=== PATIENT | female | born 1940 | race Caucasian/White ===

== ENCOUNTER 2017-10-15 19:05 | Inpatient (IN) | payer MEDICARE, OTHER ==
[~2017-10-15] VITALS: Ht 157.5 cm; Wt 53.3 kg
[~2017-10-15 19:05] MED LIST: ACET325 PO; ASPI81TA82 PO; ATOR10 PO; BAZACRE TOP; BISA10R PR; CEFU1TAB43 PO; COUG100S2 PO; DEPA500T3 PO; DILA125S PO; ERYT.5%O LEFT EYE; IMOD2TAB PO; LEVO.025 PO; LORTA5 PO; MILKSUS5 PO; NITR0.4S SL; PERI8.6T PO; PROM25SU8 PR; TIZA2CAP PO; XANA0.5T PO; ZOFR4TAB PO; ZOLO50TA PO; [UNRECOGNIZED DRUG - CODE] PO
[2017-10-15] MEDS ORDERED: IOHEXOL 350 MG/ML 10 ML VIAL (for RAD DIAG) IVCONTRAST ONE (19:06)
[2017-10-15 19:32] VITALS: BP 120/59; PULSE 95; RESP 20; TEMP 96.9; O2SAT 98
--- NOTE | 2017-10-15 20:25 | PD ---
HPI Chief Complaint: Abdominal Pain Time Seen by Provider: 20:11 Travel History International Travel<30 days: No Contact w/Intl Traveler<30days: No Traveled to known affect area: No History of Present Illness HPI Patient comes emergency department for evaluation from [facility] report abdominal pain with reported for burgundy vomiting. Patient denies any pain currently. States that she vomited 3 times. Denies any blood noted in the vomit. Denies any chest pain, shortness of breath, abdominal pain, back pain, or fevers. Patient states that she is hungry, but was told she cannot eat secondary to vomiting. Patient was also reported not have a bowel movement for 4 days. Patient states she is uncertain last time she had a bowel movement. Denies anything making symptoms better or worse. Severity mild. PFSH Past Medical History Anemia: Yes Arthritis: Yes (OA) Blood Disorders: No Anxiety: Yes Depression: Yes Cancer: Yes (LYMPHOMA) Cardiovascular Problems: Yes Chemotherapy: Yes (LAST TX 10/22) Cerebrovascular Accident: Yes Diabetes: No Diminished Hearing: No Endocrine: No Gastrointestinal Disorders: Yes GERD: Yes Glaucoma: No Gout: Yes Genitourinary: Yes (UTI'S, NEUROGENIC BLADDER) Headaches: Yes Hepatitis: No Hiatal Hernia: No Hypertension: Yes Immune Disorder: No Implanted Vascular Access Dvce: Yes Musculoskeletal: Yes (RIGHT SIDED WEAKNESS DUE TO CVA, OSTEOPOROSIS) Neurologic: Yes (cord compression c3) Psychiatric: Yes Reproductive: No Respiratory: No Migraines: No Radiation Therapy: No Seizures: Yes Ulcer: No PNEUMOCCOCAL Vaccine (Year): 1 ?: Not Menopausal: Yes Tubal Ligation: Yes Past Surgical History Abdominal Surgery: No AICD: No Appendectomy: No Arteriovenous Shunt: Yes (HEAD) Body Medical Devices: RT SIDE BEVEL GEAR GENERATOR OPERATOR SHUNT AND METAL BRAIN CLIP Cardiac Surgery: No Cholecystectomy: No Ear Surgery: No Endocrine Surgery: No Eye Surgery: No Genitourinary Surgery: No Gynecologic Surgery: Yes (HYSTERECTOMY) Hysterectomy: Yes Insulin Pump: No Joint Replacement: No Neurologic Surgery: Yes (BENIGN BRAIN TUMOR;BEVEL GEAR GENERATOR OPERATOR SHUNT;CLIPS) Oral Surgery: Yes (TONSILECTOMY) Pacemaker: No Thoracic Surgery: No Tonsillectomy: Yes Other Surgery: Yes (1981 brain...1982 BEVEL GEAR GENERATOR OPERATOR SHUNT. 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 ESBL (urine) - 10/2013 & 01/2016 chocolate flavor (Unverified Adverse Reaction, Unknown, "MAKES ME HYPER", 10/15/17) Reported Meds & Prescriptions Reported Meds & Active Scripts Active Reported Aspirin Low Dose (Aspirin) 81 Mg Chew 81 Mg CHEW DAILY Atorvastatin (Atorvastatin Calcium) 10 Mg Tab 10 Mg PO HS Sertraline (Sertraline HCl) 100 Mg Tab 100 Mg PO DAILY Depakote DR (Divalproex Sodium) 500 Mg Tabdr 500 Mg PO BID Phenytoin Liq (Phenytoin) 125 Mg/5 Ml Rylee 4 Ml PO TID Tizanidine (Tizanidine HCl) 2 Mg Tab 2 Mg PO TID Ondansetron (Ondansetron HCl) 8 Mg Tab 4 Mg PO Q6HR Levothyroxine (Levothyroxine Sodium) 25 Mcg Tab 1 Mcg PO DAILY Hydrocodone-Acetamin 5-325 mg (Hydrocodone/Acetaminophen) 5 Mg-325 Mg Tablet 1 Tab PO Q4HR PRN Review of Systems Except as stated in HPI: all other systems reviewed are Neg Physical Exam Narrative GENERAL: Well-developed, under nourished, in no acute distress, and non-ill appearing. SKIN: Focused skin assessment warm and dry. HEAD: Atraumatic. Normocephalic. EYES: Pupils equal and round. EOMI. No scleral icterus. No injection or drainage. ENT: No nasal bleeding or discharge. Mucous membranes pink and dry lips. NECK: Trachea midline. Supple. No nuclear rigidity. CARDIOVASCULAR: Regular rate and rhythm. Murmur appreciated. RESPIRATORY: No accessory muscle use. No respiratory distress. Decreased breath sounds throughout. Breath sounds equal bilaterally. GASTROINTESTINAL: Abdomen soft, nondistended, and no guarding. Hepatic and splenic margins not palpable. Hypoactive bowel sounds x4. No pulsatile mass. Patient reports tenderness palpation left lower and left upper quadrants. MUSCULOSKELETAL: No obvious deformities. No clubbing. No cyanosis. No edema. NEUROLOGICAL: Awake and alert. No obvious cranial nerve deficits. Normal speech. Data Data Last Documented VS Vital Signs Date Time Temp Pulse Resp B/P (MAP) Pulse Ox O2 Delivery O2 Flow Rate FiO2 10/15/17 23:30 88 16 112/57 (75) 97 Nasal Cannula 2.00 10/15/17 19:32 96.9 Orders Orders Complete Blood Count With Diff (10/15/17 20:17) Comprehensive Metabolic Panel (10/15/17 20:17) Lipase (10/15/17 20:17) Prothrombin Time / Inr (Pt) (10/15/17 20:17) Act Partial Throm Time (Ptt) (10/15/17 20:17) Urinalysis - C+S If Indicated (10/15/17 20:17) Ct Abd/Pel W Iv Contrast(Rout) (10/15/17 20:17) Iv Access Insert/Monitor (10/15/17 20:17) Ecg Monitoring (10/15/17 20:17) Oximetry (10/15/17 20:17) Sodium Chloride 0.9% Flush (Ns Flush) (10/15/17 20:30) Chest, Single Ap (10/15/17 20:17) Urine Culture (10/15/17 20:30) Levofloxacin 750 Mg Premix Inj (Levaquin (10/15/17 23:15) Iohexol 350 Inj (Omnipaque 350 Inj) (10/15/17 19:06) Admit Order (Ed Use Only) (10/16/17 01:10) Labs Laboratory Tests Test 10/15/17 20:30 White Blood Count 14.9 TH/MM3 Red Blood Count 4.18 MIL/MM3 Hemoglobin 13.1 GM/DL Hematocrit 38.8 % Mean Corpuscular Volume 92.9 FL Mean Corpuscular Hemoglobin 31.5 PG Mean Corpuscular Hemoglobin Concent 33.9 % Red Cell Distribution Width 13.3 % Platelet Count 229 TH/MM3 Mean Platelet Volume 8.8 FL Neutrophils (%) (Auto) 84.4 % Lymphocytes (%) (Auto) 7.9 % Monocytes (%) (Auto) 7.6 % Eosinophils (%) (Auto) 0.0 % Basophils (%) (Auto) 0.1 % Neutrophils # (Auto) 12.6 TH/MM3 Lymphocytes # (Auto) 1.2 TH/MM3 Monocytes # (Auto) 1.1 TH/MM3 Eosinophils # (Auto) 0.0 TH/MM3 Basophils # (Auto) 0.0 TH/MM3 CBC Comment DIFF FINAL Differential Comment Prothrombin Time 11.6 SEC Prothromb Time International Ratio 1.1 RATIO Activated Partial Thromboplast Time 31.2 SEC Urine Color YELLOW Urine Turbidity HAZY Urine pH 8.0 Urine Specific [place] 1.021 Urine Protein 30 mg/dL Urine Glucose (UA) NEG mg/dL Urine Ketones NEG mg/dL Urine Occult Blood NEG Urine Nitrite NEG Urine Bilirubin NEG Urine Urobilinogen 2.0 MG/DL Urine Leukocyte Esterase LARGE Urine RBC 2 /hpf Urine WBC 18 /hpf Urine Squamous Epithelial Cells 1 /hpf Urine Amorphous Sediment RARE Urine Bacteria MANY /hpf Urine Mucus FEW /lpf Microscopic Urinalysis Comment CULTURE INDICATED Blood Urea Nitrogen 12 MG/DL Creatinine 0.36 MG/DL Random Glucose 107 MG/DL Total Protein 6.8 GM/DL Albumin 2.5 GM/DL Calcium Level 8.3 MG/DL Alkaline Phosphatase 86 U/L Aspartate Amino Transf (AST/SGOT) 24 U/L Alanine Aminotransferase (ALT/SGPT) 15 U/L Total Bilirubin 0.5 MG/DL Sodium Level 130 MEQ/L Potassium Level 4.5 MEQ/L Chloride Level 95 MEQ/L Carbon Dioxide Level 26.6 MEQ/L Anion Gap 8 MEQ/L Estimat Glomerular Filtration Rate 175 ML/MIN Lipase 86 U/L [facility] Medical Decision Making Medical Screen Exam Complete: Yes Emergency Medical Condition: Yes Differential Diagnosis Gastritis, diverticulitis, constipation, small bowel obstruction, ileus, colitis , UTI, pneumonia, metabolic disturbance Narrative Course Patient was seen and examined. Initial laboratory radiological studies were ordered. Upon review of patient's UA and chest x-ray, IV Levaquin was ordered to cover both aspiration pneumonia and UTI. Patient was signed out to Dr. Tarango at the end of my shift pending CT results. Please see her documentation for final diagnosis and disposition. Gen Holley Oct 15, 2017 20:25
[2017-10-15] MEDS ORDERED: SODIUM CHLORIDE 0.9% FLUSH 10 ML FLUSH IV FLUSH PRN (20:30)
[2017-10-15 20:45] VITALS: BP 116/57; PULSE 68; RESP 16; O2SAT 96
--- NOTE | 2017-10-15 20:47 | RADRPT ---
EXAM DATE/TIME: 10/15/2017 20:24 [facility] COMPARISON: CHEST SINGLE AP, January 27, 2016, 13:01. INDICATIONS : Vomiting MEDICAL HISTORY : Seizures. Hypertension. Stroke. SURGICAL HISTORY : Shunt ENCOUNTER: Initial ACUITY: 1 day PAIN SCORE: 0/10 LOCATION: chest FINDINGS: His basal airspace disease which could represent bronchopneumonia or aspiration. Severe dextroscolios is. Remote bilateral rib fractures. Cardiomegaly CONCLUSION: 1. Basilar airspace disease. Differential diagnosis includes bronchopneumonia and aspiration. Probabl e trace pleural fluid. Cardiomegaly. Severe dextroscoliosis. Alvino Simmons MD on October 15, 2017 at 20:44 Board Certified Radiologist. This report was verified electronically.
[2017-10-15] MEDS ORDERED: ONDA8TAB7 PO (20:49)
[2017-10-15] MEDS ORDERED: LEVO25TA4 PO (20:49)
[2017-10-15] MEDS ORDERED: HYDR-3516 PO (20:49)
[2017-10-15] MEDS ORDERED: SERT-129 PO (20:49)
[2017-10-15] MEDS ORDERED: PHEN125S PO (20:49)
[2017-10-15] MEDS ORDERED: ASPI81CH6 CHEW (20:49)
[2017-10-15] MEDS ORDERED: DEPA500T PO (20:49)
[2017-10-15] MEDS ORDERED: TIZA2TAB PO (20:49)
[2017-10-15] MEDS ORDERED: ATOR10TA15 PO (20:49)
[2017-10-15 21:38] LABS: AUTOMATED NEUTROPHIL # 12.6 TH/MM3 (1.8-7.7); BASOPHIL % 0.1 % (0.0-2.0); HEMATOCRIT 38.8 % (35.0-46.0); HEMOGLOBIN 13.1 GM/DL (11.6-15.3); LYMPH % 7.9 % (9.0-44.0); LYMPHOCYTE # 1.2 TH/MM3 (1.0-4.8); MEAN CELL VOLUME 92.9 FL (80.0-100.0); MEAN CORPUSCULAR HEMOGLOBIN 31.5 PG (27.0-34.0); MEAN CORPUSCULAR HGB CONC 33.9 % (32.0-36.0); MEAN PLATELET VOLUME 8.8 FL (7.0-11.0); MONO % 7.6 % (0.0-8.0); MONOCYTE # 1.1 TH/MM3 (0-0.9); NEUT % 84.4 % (16.0-70.0); PLATELET COUNT 229 TH/MM3 (150-450); RED BLOOD COUNT 4.18 MIL/MM3 (4.00-5.30); RED CELL DISTRIBUTION WIDTH 13.3 % (11.6-17.2); WHITE BLOOD COUNT 14.9 TH/MM3 (4.0-11.0)
[2017-10-15 21:49] VITALS: BP 135/59; PULSE 95; RESP 18; O2SAT 96
[2017-10-15 21:53] LABS: AMORPHOUS SEDIMENT, URINE RARE; BACTERIA, URINE MANY /hpf; BILIRUBIN, URINE NEG (NEG); BLOOD, URINE NEG (NEG); GLUCOSE,URINE NEG (NEG); KETONE, URINE NEG (NEG); MUCUS URINE FEW /lpf (OCC); NITRITE,URINE NEG (NEG); SQUAMOUS EPITHELIAL CELL URINE 1 /hpf (0-5); URINE COLOR YELLOW (YELLW/STRAW); URINE LEUKOCYTE ESTERASE LARGE (NEG)
[2017-10-15 21:57] LABS: INTERNATIONAL NORMALIZED RATIO 1.1 RATIO; PROTHROMBIN TIME - PATIENT 11.6 SEC (9.8-11.6)
[2017-10-15 22:07] LABS: ALT (GPT) 15 U/L (10-53)
[2017-10-15 22:09] LABS: ALKALINE PHOSPHATASE 86 U/L (45-117); TOTAL BILIRUBIN ADULT 0.5 MG/DL (0.2-1.0); TOTAL PROTEIN 6.8 GM/DL (6.4-8.2)
[2017-10-15 22:26] LABS: ALBUMIN 2.5 GM/DL (3.4-5.0); AST (GOT) 24 U/L (15-37); BICARBONATE 26.6 MEQ/L (21.0-32.0); BLOOD UREA NITROGEN 12 MG/DL (7-18); CALCIUM 8.3 MG/DL (8.5-10.1); CHLORIDE 95 MEQ/L (98-107); CREATININE 0.36 MG/DL (0.50-1.00); GLOMERULAR FILTRATION RATE 175 ML/MIN (>89); GLUCOSE,RANDOM 107 MG/DL (74-106); SODIUM (NA) 130 MEQ/L (136-145)
[2017-10-15] MEDS ORDERED: LEVOFLOXACIN 750 MG PREMIX INJ 150 ML IV ONE (23:15)
--- NOTE | 2017-10-15 23:18 | PD ---
Data Data Last Documented VS Vital Signs Date Time Temp Pulse Resp B/P (MAP) Pulse Ox O2 Delivery O2 Flow Rate FiO2 10/15/17 23:30 88 16 112/57 (75) 97 Nasal Cannula 2.00 10/15/17 19:32 96.9 Orders Orders Complete Blood Count With Diff (10/15/17 20:17) Comprehensive Metabolic Panel (10/15/17 20:17) Lipase (10/15/17 20:17) Prothrombin Time / Inr (Pt) (10/15/17 20:17) Act Partial Throm Time (Ptt) (10/15/17 20:17) Urinalysis - C+S If Indicated (10/15/17 20:17) Ct Abd/Pel W Iv Contrast(Rout) (10/15/17 20:17) Iv Access Insert/Monitor (10/15/17 20:17) Ecg Monitoring (10/15/17 20:17) Oximetry (10/15/17 20:17) Sodium Chloride 0.9% Flush (Ns Flush) (10/15/17 20:30) Chest, Single Ap (10/15/17 20:17) Urine Culture (10/15/17 20:30) Levofloxacin 750 Mg Premix Inj (Levaquin (10/15/17 23:15) Iohexol 350 Inj (Omnipaque 350 Inj) (10/15/17 19:06) Admit Order (Ed Use Only) (10/16/17 01:10) Labs Laboratory Tests Test 10/15/17 20:30 White Blood Count 14.9 TH/MM3 Red Blood Count 4.18 MIL/MM3 Hemoglobin 13.1 GM/DL Hematocrit 38.8 % Mean Corpuscular Volume 92.9 FL Mean Corpuscular Hemoglobin 31.5 PG Mean Corpuscular Hemoglobin Concent 33.9 % Red Cell Distribution Width 13.3 % Platelet Count 229 TH/MM3 Mean Platelet Volume 8.8 FL Neutrophils (%) (Auto) 84.4 % Lymphocytes (%) (Auto) 7.9 % Monocytes (%) (Auto) 7.6 % Eosinophils (%) (Auto) 0.0 % Basophils (%) (Auto) 0.1 % Neutrophils # (Auto) 12.6 TH/MM3 Lymphocytes # (Auto) 1.2 TH/MM3 Monocytes # (Auto) 1.1 TH/MM3 Eosinophils # (Auto) 0.0 TH/MM3 Basophils # (Auto) 0.0 TH/MM3 CBC Comment DIFF FINAL Differential Comment Prothrombin Time 11.6 SEC Prothromb Time International Ratio 1.1 RATIO Activated Partial Thromboplast Time 31.2 SEC Urine Color YELLOW Urine Turbidity HAZY Urine pH 8.0 Urine Specific [place] 1.021 Urine Protein 30 mg/dL Urine Glucose (UA) NEG mg/dL Urine Ketones NEG mg/dL Urine Occult Blood NEG Urine Nitrite NEG Urine Bilirubin NEG Urine Urobilinogen 2.0 MG/DL Urine Leukocyte Esterase LARGE Urine RBC 2 /hpf Urine WBC 18 /hpf Urine Squamous Epithelial Cells 1 /hpf Urine Amorphous Sediment RARE Urine Bacteria MANY /hpf Urine Mucus FEW /lpf Microscopic Urinalysis Comment CULTURE INDICATED Blood Urea Nitrogen 12 MG/DL Creatinine 0.36 MG/DL Random Glucose 107 MG/DL Total Protein 6.8 GM/DL Albumin 2.5 GM/DL Calcium Level 8.3 MG/DL Alkaline Phosphatase 86 U/L Aspartate Amino Transf (AST/SGOT) 24 U/L Alanine Aminotransferase (ALT/SGPT) 15 U/L Total Bilirubin 0.5 MG/DL Sodium Level 130 MEQ/L Potassium Level 4.5 MEQ/L Chloride Level 95 MEQ/L Carbon Dioxide Level 26.6 MEQ/L Anion Gap 8 MEQ/L Estimat Glomerular Filtration Rate 175 ML/MIN Lipase 86 U/L [facility] Medical Record Reviewed: Yes Supervised Visit with KETAN: Yes Interpretation(s) Last Impressions Chest X-Ray 10/15/172016 Signed Impressions: Service Date/Time: Sunday, October 15, 2017 20:24 - CONCLUSION: 1. Basilar airspace disease. Differential diagnosis includes bronchopneumonia and aspiration. Probable trace pleural fluid. Cardiomegaly. Severe dextroscoliosis. Alvino Simmons MD Abdomen/Pelvis CT 10/15/172016 Signed Impressions: Service Date/Time: Sunday, October 15, 2017 23:09 - CONCLUSION: Right lung base consolidation and effusion with nonspecific nodular areas in the central right lung base. Gallstones and gallbladder wall calcification. Otherwise grossly nonacute appearance of the abdomen and pelvis. Sonu Nix MD Narrative Course During the course of the patient's emergency department visit, the patient's history, examination, and differential diagnosis were reviewed with the patient. The patient was placed on a residential monitor with oximetry and frequent blood pressure monitoring. The patient had IV access obtained and blood work sent for analysis. The patient's case was staffed with Elmer, the physician phlebotomist medical lab assistant. The patient's case was then checked out to me at the conclusion of his shift. Please see his complete history and physical. The patient is a 77- year-old male who presents from an assisted living facility with nausea and vomiting 3 today. The patient denies having any abdominal pain, however according the record at the snf the patient was complaining of abdominal pain in addition to this. The patient reports having constipation for the last 4 days. The patient's laboratory studies were reviewed and remarkable for a white count of 14.9, hemoglobin 13.1, platelets 229 with 84.4 neutrophils, CMP is remarkable for sodium of 130, chloride 95, creatinine 0.36, glucose 107, albumin 2.5, lipase 86. PT 11.6, PTT 31.2, urinalysis showed large leukocyte esterase 18 WBCs many bacteria. Radiology studies were reviewed and remarkable for a chest x-ray that shows basilar airspace disease suspicious for bronchopneumonia, possible aspiration, CT scan of the abdomen pelvis shows a right lung base consolidation and effusion with nonspecific nodular areas in the central right lung base, gallstones and a gallbladder wall calcification, otherwise grossly nonacute appearance of the abdomen and pelvis. Given the patient's evidence of urinary tract infection and pneumonia the patient was started on Levaquin 750 mg IV 1. The patient's results were discussed with the patient, including the plan of care. I explained that further testing and/ or monitoring is indicated based on the patient's history, examination, and/ or laboratory findings. Therefore, I recommended admission for additional evaluation. The patient expressed understanding and was agreeable with this plan. The patient was admitted to the hospital in stable condition and sent to a bed under the care of Dr. Piña. Sepsis Criteria SIRS Criteria (2 or more): Heart rate over 90, WBC > 87260, < 4000 or > 10% bands Physician Communication Physician Communication The patient's case including history, pertinent physical examination findings, and laboratory studies were discussed with Dr. Piña. It was agreed that the patient would be admitted to Dr. Piña service. Diagnosis Primary Impression: Pneumonia Qualified Codes: J18.1 - Lobar pneumonia, unspecified organism Additional Impression: Pyuria Admitting Information Admitting Physician Requests: Admit Maddison Tarango MD Oct 15, 2017 23:18
[2017-10-15 23:30] VITALS: BP 112/57; PULSE 88; RESP 16; O2SAT 97
[2017-10-16] VITALS (10 sets, daily range): BP systolic 118–145; BP diastolic 58–65; PULSE 18–86; RESP 16–18; TEMP 97.5–98.5; O2SAT 95–99
[2017-10-16] MEDS ORDERED: MAGNESIUM HYDROXIDE SUSP 30 ML CUP PO SCH (01:20)
[2017-10-16] MEDS ORDERED: ONDANSETRON HCL 4 MG/2 ML VIAL ONE (01:23)
--- NOTE | 2017-10-16 01:25 | RADRPT ---
EXAM DATE/TIME: 10/15/2017 23:09 [facility] COMPARISON: CT ABDOMEN & PELVIS W CONTRAST, June 24, 2014, 13:23. INDICATIONS : Patient complains of abdominal pain. IV CONTRAST: 70 cc Omnipaque 350 (iohexol) IV ORAL CONTRAST: No oral contrast ingested. RADIATION DOSE: 6.75 CTDIvol (mGy) MEDICAL HISTORY : Cerebrovascular disease. Cardiovascular disease Seizures.lymphoma SURGICAL HISTORY : [facility] MEDICAL AND LAB DIRECTOR shunt ENCOUNTER: Initial ACUITY: 3 days PAIN SCALE: 5/10 LOCATION: abdomen TECHNIQUE: Volumetric scanning of the abdomen and pelvis was performed. Using automated exposure control and ad justment of the mA and/or kV according to patient size, radiation dose was kept as low as reasonably achievable to obtain optimal diagnostic quality images. DICOM format image data is available electro nically for review and comparison. FINDINGS: LOWER LUNGS: There is consolidative change and pleural effusion in the right lung base and minimal similar change in the posterior left base. There are couple of nodular densities in the central right lung base whic h aren't determine. These measure 1.3-1.5 cm. There is mild dilatation of the aortic root LIVER: Stable fluid density areas in the posterior segment right lobe and in the central liver. No biliary d uctal dilatation. Gallbladder is filled with stones and there is some wall calcification noted. SPLEEN: Normal size without lesion. PANCREAS: Within normal limits. KIDNEYS: Normal in size and shape. There is no mass, stone or hydronephrosis. ADRENAL GLANDS: Stable left adrenal mass. VASCULAR: Dense atherosclerotic vascular calcification involving the aorta and branch vessels. Inferior vena ca jung filter is present. BOWEL/MESENTERY: Abundant stool in the rectum. Slight fluid and gaseous distention of bowel loops elsewhere. ABDOMINAL WALL: Within normal limits. RETROPERITONEUM: There is no lymphadenopathy. BLADDER: Decompressed with Leary catheter REPRODUCTIVE: Uterus is surgically absent. No evidence of pelvic mass or free fluid INGUINAL: There is no lymphadenopathy or hernia. MUSCULOSKELETAL: Prominent spinal scoliosis and degenerative change in the spine and hips. Previous pinning of the rig ht hip. CONCLUSION: Right lung base consolidation and effusion with nonspecific nodular areas in the central right lung b ase. Gallstones and gallbladder wall calcification. Otherwise grossly nonacute appearance of the abdomen and pelvis. Sonu Nix MD on October 16, 2017 at 1:15 Board Certified Radiologist. This report was verified electronically.
[2017-10-16] MEDS ORDERED: LORazepam 2 MG/ML VIAL IV PRN (01:45)
[2017-10-16] MEDS ORDERED: ONDANSETRON HCL 4 MG/2 ML VIAL IV PUSH PRN (01:45)
[2017-10-16] MEDS: SODIUM CHLOR 0.9% 1000 ML INJ 1,000 ML IV SCH ×2 (01:48→15:05)
[2017-10-16] MEDS ORDERED: SODIUM CHLORIDE 0.9% FLUSH 10 ML FLUSH IV FLUSH PRN (08:30)
[2017-10-16] MEDS ORDERED: NALOXONE HCL 0.4 MG/ML AMP IV PUSH PRN (08:30)
[2017-10-16] MEDS ORDERED: METOCLOPRAMIDE HCL 10 MG/2 ML VIAL IV PUSH PRN (08:30)
[2017-10-16] MEDS ORDERED: MAGNESIUM HYDROXIDE SUSP 30 ML CUP PO PRN (08:30)
[2017-10-16] MEDS ORDERED: LACTULOSE SYRUP 20 GM/30 ML CUP PO PRN (08:30)
[2017-10-16] MEDS ORDERED: ACETAMINOPHEN 325 MG TAB PO PRN (08:30)
[2017-10-16] MEDS ORDERED: BISACODYL 10 MG SUPP RECTAL PRN (08:30)
[2017-10-16] MEDS ORDERED: SENNOSIDES 8.6 MG TAB PO PRN (08:30)
[2017-10-16] MEDS ORDERED: cloNIDine HCL 0.1 MG TAB PO PRN (08:45)
[2017-10-16] MEDS ORDERED: Vancomycin Consult Pharmacy 1 EA OTHER SCH (08:45)
[2017-10-16] MEDS: LEVOTHYROXINE SODIUM 25 MCG TAB PO SCH (09:05)
[2017-10-16] MEDS: SODIUM CHLORIDE 0.9% FLUSH 10 ML FLUSH IV FLUSH SCH ×2 (09:06→21:00)
--- NOTE | 2017-10-16 09:39 | MH ---
cc: Aquilino Piña MD DATE OF ADMISSION: 10/16/2017 CHIEF COMPLAINT: Abdominal pain and hematemesis. HISTORY OF PRESENT ILLNESS: She resides at [facility]. Apparently, she has not had a bowel movement for at least 4 days at the [facility]. She was sent to the emergency room and found to have sepsis, pneumonia and UTI. She was started on IV fluids. WBCs are 14.9. sodium 130 and positive leukocyte esterase and many bacteria on urinalysis. Chest x-ray shows pneumonia and possible aspiration. CT scan of the abdomen and pelvis showed right lung base consolidation and effusion, gallstones and a gallbladder wall calcification, otherwise normal CT of the abdomen and pelvis. She was given Levaquin 750 IV x 1. The patient met sepsis criteria as her heart rate was over 90; WBCs greater than 12,000. The patient, per the nursing report, has been quite lethargic. She has not eaten or had bowel movements. She required a dose of Zofran. The patient was seen in the emergency room and appears much more weakened than usual. She does respond to stimuli and is able to give somewhat of a history and overall her mentation is almost at baseline. I know the patient well as she is an outpatient at the [facility]. PAST MEDICAL HISTORY: 1. Seizures. 2. Anemia. 3. Lymphoma. 4. Anxiety and depression. 5. History of chemotherapy for lymphoma. 6. Cerebrovascular accident. 7. Gastroesophageal reflux disease. 8. Gout. 9. Neurogenic bladder. 10. Chronic UTIs with chronic indwelling Leary. 11. Headaches. 12. Hypertension. 13. Right hemiparesis. 14. Osteoporosis. 15. Cord compression at C3. PAST SURGICAL HISTORY: 1. AV shunt in the head on the right side and a metal brain clip. 2. Hysterectomy. 3. Tonsillectomy. SOCIAL HISTORY: No alcohol, tobacco or illicit drug usage. She is a long-term care resident at [facility]. ALLERGIES: MILK, MRI AND CHOCOLATE. HOME MEDICATIONS: 1. Aspirin 81. 2. Atorvastatin 10. 3. Sertraline [address] 500 mg b.i.d. 5. Phenytoin liquid 125/5, 4 mL t.i.d. 6. Tizanidine 2 mg t.i.d. 7. Zofran 4 mg p.r.n. 8. Levothyroxine 25 mcg daily. 9. [place] 5 mg every 4 hours p.r.n. REVIEW OF SYSTEMS: Increased weakness, altered mental status, vomiting and hematemesis, although that is questionable. Negative 12-point review of systems otherwise, except as noted in the history and physical and assessment and plan. DIAGNOSTIC STUDIES: WBC is 14.9, otherwise normal CBC. Sodium 130, creatinine 0.36, glucose 107, calcium 8.3. INR 1.1. Urinalysis is hazy with protein, large leukocyte esterase, WBCs and many bacteria. Chest x-ray shows bronchopneumonia and aspiration and pleural fluid with cardiomegaly and dextroscoliosis. AP CT scan of the right lung, pneumonia and effusion and gallstones and gallbladder wall calcification. Urine culture is pending. Blood cultures are pending. PHYSICAL EXAMINATION: VITAL SIGNS: Temperature 98.5, pulse 80, respirations 18, blood pressure 125/60, pulse oximetry is 99 on 2 liters. GENERAL: She is a frail, emaciated, female lying on her left side with her typical dextroscoliosis abnormality. HEENT: Oropharynx is dry, but overall clear. Normocephalic, atraumatic. PERRLA. NECK: No JVD. No bruits. CHEST: She has rhonchi at the bases bilaterally and right base crackles and a severe harsh congested cough. No wheezes. ABDOMEN: Soft, tender to palpation over a lower abdominal hernia, overall stable on examination. Normoactive bowel sounds. No rebound or guarding. EXTREMITIES: No edema. SKIN: Clear. NEUROLOGIC: Alert and oriented x 1. No apparent distress. Cranial nerves are grossly intact; however, she has right hemiparesis. She has 1/5 weakness in the left upper extremity and left lower extremity, otherwise. PSYCHIATRIC: Stable generalized confusion, alert and oriented x 1. ASSESSMENT: Sepsis. Pneumonia. Aspiration. Hematemesis, questionable. Vomiting. Hyponatremia. Seizures. Cerebrovascular accident with right hemiparesis. Hyperglycemia. Lymphoma. Urinary tract infection. Neurogenic bladder with chronic indwelling Leary. Ventriculoperitoneal shunt. Severe dextroscoliosis. PLAN: 1. IV vancomycin. 2. IV Zosyn. 3. Consult Infectious Disease for sepsis. 4. GI consult for hematemesis and abdominal pain. 5. Morning CBC and BMP. 6. Blood cultures. 7. Followup blood cultures. 8. Followup urine culture. 9. IV normal saline at 75 mL per hour. 10. Continue Depakote. 11. Continue Synthroid. 12. Protonix 40 IV b.i.d. for gastrointestinal prophylaxis. 13. Deep venous thrombosis prophylaxis with SCDs and TEDs and no chemical prophylaxis as she may have had some hematemesis. 14. Telemetry. 15. Physical therapy. 16. Occupational therapy. 17. Speech therapy. 18. Inpatient admission for the above assessment and plan. [facility] treatment as outlined above. Expect 3 days of inpatient stay. 19. 50 minutes spent with the patient, half of which was counseling and coordination of care. MD MAXWELL Nuñez/MARQUITA , 08:48 AM , 09:37 AM
[2017-10-16] MEDS: PHENYTOIN SUSP 100 MG/4 ML CUP PO SCH ×3 (10:16→17:27)
[2017-10-16] MEDS: PANTOPRAZOLE SODIUM 40 MG VIAL IV PUSH SCH (10:16)
[2017-10-16] MEDS: DOCUSATE SODIUM 50 MG/SENNA 8.6 MG TAB PO SCH ×2 (10:17→22:08)
[2017-10-16] MEDS: PIPERACIL-TAZO 3.375 GM PREMIX 50 ML IV SCH ×3 (10:19→22:08)
--- NOTE | 2017-10-16 10:21 | PD.CONS ---
HPI History of Present Illness This is a 77 year old lady who presented from [facility] and was found to have sepsis, PNA, UTI. GI consulted for GIB. Reportedly she was having n/v for 3 days and possibly hematemesis. There was report from [facility] that she had maroon emesis and was complaining of abd pain. Pt admits n/v but denies any blood or maroon color. Says her last BM was 2 d ago. per EMR was [address] shows abundant stool in rectum and some gaseous distention. She c/o abd pain "in the pit of my stomach." She is not sure if she has had EGD or colonoscopy. 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 (blood) - 05/2008 ESBL (urine) - 10/2013 & 01/2016 chocolate flavor (Unverified Adverse Reaction, Unknown, "MAKES ME HYPER", 10/15/17) Family History unk Social History no toxic habits (Fernanda Olsen) Review of Systems Gastrointestinal: COMPLAINS OF: Abdominal pain, Nausea, Vomiting, DENIES: Hematemesis otherwise noncontributory (Fernanda Olsen) GI Exam Vitals I&O Vital Signs Date Time Temp Pulse Resp B/P (MAP) Pulse Ox O2 Delivery O2 Flow Rate FiO2 10/16/17 05:13 98.5 80 18 125/60 (81) 99 Nasal Cannula 2.00 10/16/17 01:49 86 16 119/58 (78) 97 Nasal Cannula 2.00 10/15/17 23:30 88 16 112/57 (75) 97 Nasal Cannula 2.00 10/15/17 21:49 95 18 135/59 (84) 96 Room Air 10/15/17 20:45 68 16 116/57 (76) 96 Nasal Cannula 2.00 10/15/17 19:32 96.9 95 20 120/59 (79) 98 I/O 10/15/17 10/15/17 10/15/17 10/16/17 10/16/17 10/16/17 07:00 15:00 23:00 07:00 15:00 23:00 Intake Total 150 ml Output Total 600 ml Balance -450 ml IV Total 150 ml Output Urine Total 600 ml # Voids 0 Imaging Last Impressions Chest X-Ray 10/15/172016 Signed Impressions: Service Date/Time: Sunday, October 15, 2017 20:24 - CONCLUSION: 1. Basilar airspace disease. Differential diagnosis includes bronchopneumonia and aspiration. Probable trace pleural fluid. Cardiomegaly. Severe dextroscoliosis. Alvino Simmons MD Abdomen/Pelvis CT 10/15/172016 Signed Impressions: Service Date/Time: Sunday, October 15, 2017 23:09 - CONCLUSION: Right lung base consolidation and effusion with nonspecific nodular areas in the central right lung base. Gallstones and gallbladder wall calcification. Otherwise grossly nonacute appearance of the abdomen and pelvis. Sonu Nix MD Laboratory Test 10/15/17 20:30 White Blood Count 14.9 TH/MM3 Red Blood Count 4.18 MIL/MM3 Hemoglobin 13.1 GM/DL Hematocrit 38.8 % Mean Corpuscular Volume 92.9 FL Mean Corpuscular Hemoglobin 31.5 PG Mean Corpuscular Hemoglobin Concent 33.9 % Red Cell Distribution Width 13.3 % Platelet Count 229 TH/MM3 Mean Platelet Volume 8.8 FL Neutrophils (%) (Auto) 84.4 % Lymphocytes (%) (Auto) 7.9 % Monocytes (%) (Auto) 7.6 % Eosinophils (%) (Auto) 0.0 % Basophils (%) (Auto) 0.1 % Neutrophils # (Auto) 12.6 TH/MM3 Lymphocytes # (Auto) 1.2 TH/MM3 Monocytes # (Auto) 1.1 TH/MM3 Eosinophils # (Auto) 0.0 TH/MM3 Basophils # (Auto) 0.0 TH/MM3 CBC Comment DIFF FINAL Differential Comment Prothrombin Time 11.6 SEC Prothromb Time International Ratio 1.1 RATIO Activated Partial Thromboplast Time 31.2 SEC Urine Color YELLOW Urine Turbidity HAZY Urine pH 8.0 Urine Specific [place] 1.021 Urine Protein 30 mg/dL Urine Glucose (UA) NEG mg/dL Urine Ketones NEG mg/dL Urine Occult Blood NEG Urine Nitrite NEG Urine Bilirubin NEG Urine Urobilinogen 2.0 MG/DL Urine Leukocyte Esterase LARGE Urine RBC 2 /hpf Urine WBC 18 /hpf Urine Squamous Epithelial Cells 1 /hpf Urine Amorphous Sediment RARE Urine Bacteria MANY /hpf Urine Mucus FEW /lpf Microscopic Urinalysis Comment CULTURE INDICATED Blood Urea Nitrogen 12 MG/DL Creatinine 0.36 MG/DL Random Glucose 107 MG/DL Total Protein 6.8 GM/DL Albumin 2.5 GM/DL Calcium Level 8.3 MG/DL Alkaline Phosphatase 86 U/L Aspartate Amino Transf (AST/SGOT) 24 U/L Alanine Aminotransferase (ALT/SGPT) 15 U/L Total Bilirubin 0.5 MG/DL Sodium Level 130 MEQ/L Potassium Level 4.5 MEQ/L Chloride Level 95 MEQ/L Carbon Dioxide Level 26.6 MEQ/L Anion Gap 8 MEQ/L Estimat Glomerular Filtration Rate 175 ML/MIN Lipase 86 U/L Date/Time Source Procedure Growth Status 10/15/17 20:30 Urine Random Urine Urine Culture Pending Received Physical Examination HEENT: PERRL; normocephalic; atraumatic; no jaundice. CHEST: CTA CARDIAC: RRR ABDOMEN: Soft, abd hernia,diffuse TTP; no hepatosplenomegaly; bowel sounds soft EXTREMITIES: No clubbing, cyanosis, or edema. SKIN: Normal; no rash; no jaundice. COPY CUTTER: oriented x 3, dysarthria (Fernanda Olsen) Assessment and Plan Plan ASSESSMENT - n/v, questionable abd pain and hematemesis - reports of maroon emesis in EMR from her SNF but pt denies this. HH currently WNL. hx limited, pt has dysarthria but does seem AOx3 - constipation - unclear when last BM was, 2-[address] showing stool in rectum. abd pain could be d/t constipation PLAN - await ST eval - enemas - notify GI of active bleeding - monitor HH - further recs to follow pt seen by myself and Dr Boudreaux and this note is on his behalf. (Fernanda Olsen) Physician Comments Seen and examined with DOCUMENT MANAGEMENT TECHNICIAN, treat for pneumonia. Laxatives for constipation. EGD planned for tomorrow. Monitor labs. Thank you (Vasile Boudreaux MD) Fernanda Olsen Oct 16, 2017 10:21 Vasile Boudreaux MD Oct 16, 2017 11:14
[2017-10-16] MEDS: RESP: ALBUTEROL 2.5 MG/IPRATROPIUM 0.5 MG NEB (SCH) NEB ×3 (12:13→21:46)
[2017-10-16] MEDS: DIVALPROEX DR 500 MG TABEC PO SCH ×2 (12:17→22:08)
[2017-10-16] MEDS: VANCOMYCIN INJ 750 MG in SODIUM CHLOR 0.9% 250 ML INJ 250 ML IV SCH ×2 (12:17→23:46)
--- NOTE | 2017-10-16 13:34 | PD.ID.CON ---
History of Present Illness Service ID Consult Requested By Dr Piña Reason for Consult sepsis Primary Care Physician Aquilino Piña MD Diagnoses: History of Present Illness 77 y.o. female who is a poor historian presentes with 2 days of abdominal pain She is afebrile, but presented with leukocytos of 14.9 K She reported to me abdominal surgery in the past , but was unable to recall the reason UA with some pyuria, clx P Review of Systems ROS Limitations: Poor Historian Past Family Social History Allergies: Coded Allergies: milk (Unverified Allergy, Unknown, LACTOSE INTOLERANT, 10/15/17) MRI PRECAUTION (Verified Adverse Reaction, Severe, SHUNT/ METAL CLIP IN BRAIN PER DR MARLYN JUÁREZ 06/15/08, 10/15/17) *MDRO Multi-Drug Resistant Organism (Verified Adverse Reaction, Unknown, ) 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 Seizures. 2. Anemia. 3. Lymphoma. 4. Anxiety and depression. 5. History of chemotherapy for lymphoma. 6. Cerebrovascular accident. 7. Gastroesophageal reflux disease. 8. Gout. 9. Neurogenic bladder. 10. Chronic UTIs with chronic indwelling Leary. 11. Headaches. 12. Hypertension. 13. Right hemiparesis. 14. Osteoporosis. 15. Cord compression at C3. Past Surgical History 1. AV shunt in the head on the right side and a metal brain clip. 2. Hysterectomy. 3. Tonsillectomy. Active Ordered Medications Medications where reviewed in EMR Antibiotics Include: ernsto dina Family History reviewed non contributory Social History No alcohol, tobacco or illicit drug usage. She is a long-term care resident at [facility]. Physical Exam Vital Signs Vital Signs Date Time Temp Pulse Resp B/P (MAP) Pulse Ox O2 Delivery O2 Flow Rate FiO2 10/16/17 12:30 76 18 127/59 (81) 99 Nasal Cannula 2.00 10/16/17 05:13 98.5 80 18 125/60 (81) 99 Nasal Cannula 2.00 10/16/17 01:49 86 16 119/58 (78) 97 Nasal Cannula 2.00 10/15/17 23:30 88 16 112/57 (75) 97 Nasal Cannula 2.00 10/15/17 21:49 95 18 135/59 (84) 96 Room Air 10/15/17 20:45 68 16 116/57 (76) 96 Nasal Cannula 2.00 10/15/17 19:32 96.9 95 20 120/59 (79) 98 Physical Exam CONSTITUTIONAL/GENERAL: This is an adequately nourished patient, in no apparent distress. TUBES/LINES/DRAINS: SKIN: No jaundice, rashes, or lesions. Skin temperature appropriate. Not diaphoretic. HEAD: Atraumatic. Normocephalic. EYES: Pupils equal and round and reactive. Extraocular motions intact. No scleral icterus. No injection or drainage. Fundi not examined. ENT: Hearing grossly normal. Nose without bleeding or purulent drainage. Throat without visible erythema, exudates, masses, or lesions. NECK: Trachea midline. Supple, nontender. No palpable thyroid enlargement or nodularity. CARDIOVASCULAR: Regular rate and rhythm without murmurs, gallops, or rubs. No JVD. Peripheral pulses symmetric. RESPIRATORY/CHEST: Symmetric, unlabored respirations. Clear to auscultation. Breath sounds equal bilaterally. No wheezes, rales, or rhonchi. GASTROINTESTINAL: Abdomen soft, , moderately distended, lower laparatomy incision is well healed, but there is 8-9 cm incisioonal easily reducible hernia very tender to palpation ; there is redness over it. No hepato- splenomegaly, or palpable masses. No guarding. Bowel sounds present. GENITOURINARY: Without palpable bladder distension. Leary catheter in place with failry clear urine MUSCULOSKELETAL: Extremities without clubbing, cyanosis, or edema. No joint tenderness or effusion noted. No calf tenderness. No mottling or clubbing. BAck: severe dextroscoliosis LYMPHATICS: No palpable cervical or supraclavicular adenopathy. NEUROLOGICAL: Awake and alert. Motor and sensory grossly within normal limits. Follows commands. Clear speech Obvious memory deficits. Moves all extremities. PSYCHIATRIC: No obvious anxiety/depression. no apparent hallucinations or other psychotic thought process. Laboratory Laboratory Tests Test 10/15/17 20:30 White Blood Count 14.9 Red Blood Count 4.18 Hemoglobin 13.1 Hematocrit 38.8 Mean Corpuscular Volume 92.9 Mean Corpuscular Hemoglobin 31.5 Mean Corpuscular Hemoglobin Concent 33.9 Red Cell Distribution Width 13.3 Platelet Count 229 Mean Platelet Volume 8.8 Neutrophils (%) (Auto) 84.4 Lymphocytes (%) (Auto) 7.9 Monocytes (%) (Auto) 7.6 Eosinophils (%) (Auto) 0.0 Basophils (%) (Auto) 0.1 Neutrophils # (Auto) 12.6 Lymphocytes # (Auto) 1.2 Monocytes # (Auto) 1.1 Eosinophils # (Auto) 0.0 Basophils # (Auto) 0.0 CBC Comment DIFF FINAL Differential Comment Prothrombin Time 11.6 Prothromb Time International Ratio 1.1 Activated Partial Thromboplast Time 31.2 Urine Color YELLOW Urine Turbidity HAZY Urine pH 8.0 Urine Specific [place] 1.021 Urine Protein 30 Urine Glucose (UA) NEG Urine Ketones NEG Urine Occult Blood NEG Urine Nitrite NEG Urine Bilirubin NEG Urine Urobilinogen 2.0 Urine Leukocyte Esterase LARGE Urine RBC 2 Urine WBC 18 Urine Squamous Epithelial Cells 1 Urine Amorphous Sediment RARE Urine Bacteria MANY Urine Mucus FEW Microscopic Urinalysis Comment CULTURE INDICATED Blood Urea Nitrogen 12 Creatinine 0.36 Random Glucose 107 Total Protein 6.8 Albumin 2.5 Calcium Level 8.3 Alkaline Phosphatase 86 Aspartate Amino Transf (AST/SGOT) 24 Alanine Aminotransferase (ALT/SGPT) 15 Total Bilirubin 0.5 Sodium Level 130 Potassium Level 4.5 Chloride Level 95 Carbon Dioxide Level 26.6 Anion Gap 8 Estimat Glomerular Filtration Rate 175 Lipase 86 Date/Time Source Procedure Growth Status 10/16/17 10:17 Blood Peripheral Aerobic Blood Culture Pending Received 10/16/17 10:17 Blood Peripheral Anaerobic Blood Culture Pending Received 10/15/17 20:30 Urine Random Urine Urine Culture Pending Received Result Diagram: 10/15/17202910/15/172029 Imaging Last Impressions Chest X-Ray 10/15/172016 Signed Impressions: Service Date/Time: Sunday, October 15, 2017 20:24 - CONCLUSION: 1. Basilar airspace disease. Differential diagnosis includes bronchopneumonia and aspiration. Probable trace pleural fluid. Cardiomegaly. Severe dextroscoliosis. Alvino Simmons MD Abdomen/Pelvis CT 10/15/172016 Signed Impressions: Service Date/Time: Sunday, October 15, 2017 23:09 - CONCLUSION: Right lung base consolidation and effusion with nonspecific nodular areas in the central right lung base. Gallstones and gallbladder wall calcification. Otherwise grossly nonacute appearance of the abdomen and pelvis. Sonu Nix MD Assessment and Plan Assessment and Plan Leukocytodsis, suspected sepsis UTI Abdomina; pain, hernia - cont current abx will gen gen surg cosult chk lactic acid fu P blood and urine clx Karlie Rice MD Oct 16, 2017 13:34
--- NOTE | 2017-10-16 14:39 | PD.CONS ---
cc: Cody De La Cruz MD HPI Service General Surgery Consult Requested By Dr. 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 She was sent to the ED because she had no bowel movement for 4 days. She was found to have RIGHT lower lobe consolidation consistent with pneumonia and a urinalysis consistent with UTI. She does have a chronic indwelling Leary catheter. She was found to have an elevated WBC. She is hyponatremic at 130. She has been evaluated by GI and they are planning an EGD tomorrow. Dr. Rice has also been consulted. A General Surgery consultation has been requested for evaluation of incision hernia. Review of Systems Constitutional: DENIES: Fatigue, Change in appetite Endocrine: DENIES: Polydipsia, Polyuria, Polyphagia Eyes: DENIES: Diplopia Ears, nose, mouth, throat: DENIES: Hearing loss Respiratory: DENIES: Cough Cardiovascular: DENIES: Chest pain Gastrointestinal: COMPLAINS OF: Abdominal pain, DENIES: Nausea, Vomiting Genitourinary: DENIES: Hematuria Musculoskeletal: DENIES: Joint pain Integumentary: DENIES: Abnormal pigmentation Hematologic/lymphatic: DENIES: Bruising Immunologic/allergic: DENIES: Eczema Neurologic: DENIES: Headache, Localized weakness Psychiatric: DENIES: Mood changes, Depression, Hallucinations Past Family Social History Past Medical History Seizures Anemia Lymphoma Anxiety and depression Chemotherapy for lymphoma CVA Neurogenic bladder Chronic UTI Headache Hypertension RIGHT hemiparesis Osteoporosis Past Surgical History AV shunt Hysterectomy Tonsillectomy Reported Medications Tizanidine Atorvastatin Aspirin [place] Phenytoin Depakote Sertraline Zofran Levothyroxine Allergies: Coded Allergies: milk (Unverified Allergy, Unknown, LACTOSE INTOLERANT, 10/15/17) MRI PRECAUTION (Verified Adverse Reaction, Severe, SHUNT/ METAL CLIP IN BRAIN PER DR MARLYN JUÁREZ 06/15/08, 10/15/17) *MDRO Multi-Drug Resistant Organism (Verified Adverse Reaction, Unknown, ) 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 VRE (blood) - 05/2008 ESBL (urine) - 10/2013 & 01/2016 chocolate flavor (Unverified Adverse Reaction, Unknown, "MAKES ME HYPER", 10/15/17) Active Ordered Medications Current Medications Medications (Trade) Dose Ordered Sig/Sheree Route Start Time Stop Time Status Last Admin Sodium Chloride 1,000 ml @ 75 mls/hr [id number] IV 10/16/17 01:45 10/16/17 01:48 (Zofran Inj) 4 mg Q6H PRN IV PUSH 10/16/17 01:45 10/16/17 01:38 (Ativan Inj) 0.5 mg Q6H PRN IV 10/16/17 01:45 ([place]) 500 mg BID PO 10/16/17 11:00 10/16/17 12:17 (Synthroid) 25 mcg DAILY@0600 PO 10/16/17 08:45 10/16/17 09:05 (Dilantin Liq) 100 mg TID PO 10/16/17 10:00 10/16/17 12:17 (NS Flush) 2 ml UNSCH PRN IV FLUSH 10/16/17 08:30 (NS Flush) 2 ml BID IV FLUSH 10/16/17 09:00 10/16/17 09:06 (Tylenol) 650 mg Q4H PRN PO 10/16/17 08:30 (Reglan Inj) 5 mg Q6H PRN IV PUSH 10/16/17 08:30 (Narcan Inj) 0.4 mg UNSCH PRN IV PUSH 10/16/17 08:30 (Deena-Colace) 1 tab BID PO 10/16/17 09:00 10/16/17 10:17 (Milk Of Magnesia Liq) 30 ml Q12H PRN PO 10/16/17 08:30 (Senokot) 17.2 mg Q12H PRN PO 10/16/17 08:30 (Dulcolax Supp) 10 mg DAILY PRN RECTAL 10/16/17 08:30 (Lactulose Liq) 30 ml DAILY PRN PO 10/16/17 08:30 (Duoneb Neb) 1 ampule QID NEB NEB 10/16/17 12:00 10/16/17 12:13 (Protonix Inj) 40 mg Q24H IV PUSH 10/16/17 10:00 10/16/17 10:16 Pharmacy Profile Note 0 ml @ 0 mls/hr UNSCH OTHER 10/16/17 08:45 Piperacillin Sod/ Tazobactam Sod 50 ml @ 100 mls/hr Q6H IV 10/16/17 10:00 10/16/17 10:19 Vancomycin HCl 750 mg/Sodium Chloride 257.5 ml @ 250 mls/hr Q12H IV 10/16/17 12:00 10/16/17 12:17 Miscellaneous Information SPECIFIC LAB TO BE DRAWN:VANCOMYCIN TROUGH DATE TO... 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 Physical Exam Vital Signs Vital Signs Date Time Temp Pulse Resp B/P (MAP) Pulse Ox O2 Delivery O2 Flow Rate FiO2 10/16/17 13:47 10/16/17 12:30 76 18 127/59 (81) 99 Nasal Cannula 2.00 10/16/17 09:30 82 18 124/64 (84) 98 Nasal Cannula 2.00 10/16/17 07:00 98.5 84 18 118/60 (79) 99 Nasal Cannula 2.00 10/16/17 05:13 98.5 80 18 125/60 (81) 99 Nasal Cannula 2.00 10/16/17 01:49 86 16 119/58 (78) 97 Nasal Cannula 2.00 10/15/17 23:30 88 16 112/57 (75) 97 Nasal Cannula 2.00 10/15/17 21:49 95 18 135/59 (84) 96 Room Air 10/15/17 20:45 68 16 116/57 (76) 96 Nasal Cannula 2.00 10/15/17 19:32 96.9 95 20 120/59 (79) 98 Physical Exam GENERAL: 77 year old female resting in bed in no acute distress. SKIN: Warm and dry. Varies superficial abrasions on BLE. HEAD: Atraumatic. Normocephalic. EYES: Pupils equal and round. No scleral icterus. No injection or drainage. ENT: No nasal bleeding or discharge. Mucous membranes pink and moist. NECK: Trachea midline. CARDIOVASCULAR: Regular rate and rhythm. RESPIRATORY: No accessory muscle use. Clear to auscultation. Breath sounds equal bilaterally. GASTROINTESTINAL: Abdomen soft; non distended. Well healed midline incision with reducible hernia; tender. Very faint erythremia at hernia site. MUSCULOSKELETAL: Extremities without clubbing, cyanosis, or edema. Contractures. NEUROLOGICAL: Awake and alert. No obvious cranial nerve deficits. Slowed speech. PSYCHIATRIC: Appropriate mood and affect; pleasantly mildly confused. Laboratory Laboratory Tests Test 10/15/17 20:30 White Blood Count 14.9 Red Blood Count 4.18 Hemoglobin 13.1 Hematocrit 38.8 Mean Corpuscular Volume 92.9 Mean Corpuscular Hemoglobin 31.5 Mean Corpuscular Hemoglobin Concent 33.9 Red Cell Distribution Width 13.3 Platelet Count 229 Mean Platelet Volume 8.8 Neutrophils (%) (Auto) 84.4 Lymphocytes (%) (Auto) 7.9 Monocytes (%) (Auto) 7.6 Eosinophils (%) (Auto) 0.0 Basophils (%) (Auto) 0.1 Neutrophils # (Auto) 12.6 Lymphocytes # (Auto) 1.2 Monocytes # (Auto) 1.1 Eosinophils # (Auto) 0.0 Basophils # (Auto) 0.0 CBC Comment DIFF FINAL Differential Comment Prothrombin Time 11.6 Prothromb Time International Ratio 1.1 Activated Partial Thromboplast Time 31.2 Urine Color YELLOW Urine Turbidity HAZY Urine pH 8.0 Urine Specific [place] 1.021 Urine Protein 30 Urine Glucose (UA) NEG Urine Ketones NEG Urine Occult Blood NEG Urine Nitrite NEG Urine Bilirubin NEG Urine Urobilinogen 2.0 Urine Leukocyte Esterase LARGE Urine RBC 2 Urine WBC 18 Urine Squamous Epithelial Cells 1 Urine Amorphous Sediment RARE Urine Bacteria MANY Urine Mucus FEW Microscopic Urinalysis Comment CULTURE INDICATED Blood Urea Nitrogen 12 Creatinine 0.36 Random Glucose 107 Total Protein 6.8 Albumin 2.5 Calcium Level 8.3 Alkaline Phosphatase 86 Aspartate Amino Transf (AST/SGOT) 24 Alanine Aminotransferase (ALT/SGPT) 15 Total Bilirubin 0.5 Sodium Level 130 Potassium Level 4.5 Chloride Level 95 Carbon Dioxide Level 26.6 Anion Gap 8 Estimat Glomerular Filtration Rate 175 Lipase 86 Date/Time Source Procedure Growth Status 10/16/17 10:17 Blood Peripheral Aerobic Blood Culture Pending Received 10/16/17 10:17 Blood Peripheral Anaerobic Blood Culture Pending Received 10/15/17 20:30 Urine Random Urine Urine Culture Pending Received Result Diagram: 10/15/17202910/15/172029 Imaging Last 48 hours Impressions Chest X-Ray 10/15/172016 Signed Impressions: Service Date/Time: Sunday, October 15, 2017 20:24 - CONCLUSION: 1. Basilar airspace disease. Differential diagnosis includes bronchopneumonia and aspiration. Probable trace pleural fluid. Cardiomegaly. Severe dextroscoliosis. Alvino Simmons MD Abdomen/Pelvis CT 10/15/172016 Signed Impressions: Service Date/Time: Sunday, October 15, 2017 23:09 - CONCLUSION: Right lung base consolidation and effusion with nonspecific nodular areas in the central right lung base. Gallstones and gallbladder wall calcification. Otherwise grossly nonacute appearance of the abdomen and pelvis. Sonu Nix MD Assessment and Plan Assessment and Plan 77 year old female with an extensive past medical history; pneumonia; UTI -Diet as tolerated---PORTFOLIO ADMINISTRATOR has suggested mechanical soft with nectar thickened liquids -ID following---on Zosyn and Vancomycin -GI planning EGD tomorrow -Would benefit from manual disimpaction -Would recommend continued treatment for UTI and pneumonia -No surgical intervention needed for reducible incisional hernia -Thank you for this consult Discussed Condition With Dr. Jono Carbajal RN Ms. Usilton Attending Statement I personally evaluated this patient at her bedside in room 1312. Patient is a very poor historian. In review of her history is important to note she has had prior abdominal surgeries by both Dr. Corley and Dr. Peralta in 2007. 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 She has developed an incisional hernia which is easily reducible. There is a widened scar in the inferior lower abdomen. Present along with this scar is a very faint erythema. It is really just pink tinged skin and is not consistent with an infection of her abdominal wall. She has some mild tenderness to palpation of the abdomen. Her CT scan does demonstrate findings consistent with fecal impaction which would give her abdominal pain. She has a urinary tract infection as well as findings consistent with a pneumonia. Both of these also would give the patient abdominal pain. He is a poor surgical candidate for abdominal wall reconstruction and therefore I would recommend against any abdominal surgery for her incisional hernia. It is also easily reducible. We will sign off. We recommend she receive appropriate therapy for her pneumonia and urinary tract infection. Manual disimpaction may be beneficial to the patient as well. Please call me [phone] if you have any questions about our recommendations or feel like surgery is required for this patient. The exam, history, and the medical decision-making described in the above note were completed with the assistance of the mid-level provider. I reviewed and agree with the findings presented. I attest that I had a [id number] encounter with the patient on the same day, and personally performed and documented my assessment and findings in the medical record. Lovely Rogers/First Jonathan JUNIOR Oct 16, 2017 14:39 Cody De La Cruz MD Oct 16, 2017 17:59
[2017-10-17] VITALS (9 sets, daily range): BP systolic 106–174; BP diastolic 59–92; PULSE 74–95; RESP 16–24; TEMP 97.4–98; O2SAT 93–99
[2017-10-17] MEDS ORDERED: CHLORHEXIDINE GLUCONATE 2 % 1 PACK (2 CLOTHS) TOPICAL PRN (03:15)
[2017-10-17] MEDS ORDERED: SODIUM CHLORID 0.9% 500 ML IV PRN (03:15)
[2017-10-17] MEDS ORDERED: POVIDONE IODINE 5% (ANTISEPSIS KIT) 4 APPLICATIONS EACH NARE PRN (03:15)
[2017-10-17] MEDS ORDERED: METOPROLOL TARTRATE 25 MG TAB PO PRN (03:15)
[2017-10-17] MEDS ORDERED: LACTATED RINGER'S 1000 ML IV PRN (03:15)
[2017-10-17] MEDS ORDERED: INSULIN HUMAN REGULAR 1,000 UNITS/10 ML VIAL SQ PRN (03:15)
[2017-10-17] MEDS: PIPERACIL-TAZO 3.375 GM PREMIX 50 ML IV SCH ×4 (04:19→21:24)
[2017-10-17 04:53] LABS: BASOPHIL % 0.5 % (0.0-2.0); EOSINOPHIL % 0.2 % (0.0-4.0); HEMATOCRIT 36.4 % (35.0-46.0); HEMOGLOBIN 12.3 GM/DL (11.6-15.3); LYMPH % 16.3 % (9.0-44.0); LYMPHOCYTE # 0.9 TH/MM3 (1.0-4.8); MEAN CELL VOLUME 93.8 FL (80.0-100.0); MEAN CORPUSCULAR HEMOGLOBIN 31.6 PG (27.0-34.0); MEAN CORPUSCULAR HGB CONC 33.7 % (32.0-36.0); MEAN PLATELET VOLUME 8.8 FL (7.0-11.0); MONO % 10.8 % (0.0-8.0); MONOCYTE # 0.6 TH/MM3 (0-0.9); NEUT % 72.2 % (16.0-70.0); PLATELET COUNT 199 TH/MM3 (150-450); RED BLOOD COUNT 3.88 MIL/MM3 (4.00-5.30); RED CELL DISTRIBUTION WIDTH 13.1 % (11.6-17.2); WHITE BLOOD COUNT 5.6 TH/MM3 (4.0-11.0)
[2017-10-17] MEDS: SODIUM CHLOR 0.9% 1000 ML INJ 1,000 ML IV SCH ×3 (05:33→23:53)
[2017-10-17] MEDS: LEVOTHYROXINE SODIUM 25 MCG TAB PO SCH (05:34)
[2017-10-17 05:37] LABS: BICARBONATE 24.4 MEQ/L (21.0-32.0); CALCIUM 8.1 MG/DL (8.5-10.1); CREATININE 0.23 MG/DL (0.50-1.00)
--- NOTE | 2017-10-17 07:35 | EKG ---
Date Performed: 10/17/2017 Time Performed: 05:46:28 PTAGE: 77 years EKG: Possible ectopic atrial rhythm with PAC(s) Left anterior fascicular block Low QRS voltages in precordial leads Borderline ECG PREVIOUS TRACING : 07/27/2015 14.48 DOCTOR: Hubert Morrow Interpretating Date/Time 10/17/2017 07:32:54
[2017-10-17] MEDS: DIVALPROEX DR 500 MG TABEC PO SCH ×2 (08:30→21:24)
[2017-10-17] MEDS: SODIUM CHLORIDE 0.9% FLUSH 10 ML FLUSH IV FLUSH SCH ×2 (08:30→21:00)
[2017-10-17] MEDS: RESP: ALBUTEROL 2.5 MG/IPRATROPIUM 0.5 MG NEB (SCH) NEB ×4 (08:30→20:30)
[2017-10-17] MEDS: PHENYTOIN SUSP 100 MG/4 ML CUP PO SCH ×3 (08:31→17:06)
[2017-10-17] MEDS: DOCUSATE SODIUM 50 MG/SENNA 8.6 MG TAB PO SCH ×2 (08:31→21:24)
--- NOTE | 2017-10-17 09:47 | HHI.FPPN ---
Subjective Remarks not at baseline c/o AP d/w RN Objective Vitals Vital Signs Date Time Temp Pulse Resp B/P (MAP) Pulse Ox O2 Delivery O2 Flow Rate FiO2 10/17/17 08:32 98 Nasal Cannula 1.00 10/17/17 08:00 97.7 80 20 145/70 (95) 94 10/17/17 04:00 97.5 74 18 125/60 (81) 93 10/17/17 00:00 97.5 78 20 106/59 (75) 94 10/16/17 21:47 98 Nasal Cannula 1.00 10/16/17 20:00 98.0 18 18 137/63 (87) 95 10/16/17 17:00 98.5 79 17 145/65 (91) 98 10/16/17 16:12 97 Nasal Cannula 1.00 10/16/17 15:00 97.5 80 17 140/61 (87) 98 10/16/17 13:47 10/16/17 12:30 76 18 127/59 (81) 99 Nasal Cannula 2.00 I/O 10/16/17 10/16/17 10/16/17 10/17/17 10/17/17 10/17/17 07:00 15:00 23:00 07:00 15:00 23:00 Intake Total 150 ml 440 ml 1114 ml Output Total 600 ml 650 ml 200 ml 2000 ml Balance -450 ml -650 ml 240 ml -886 ml Intake Oral 240 ml IV Total 150 ml 200 ml 1114 ml Output Urine Total 600 ml 650 ml 200 ml 2000 ml # Voids 0 Result Diagram: 10/17/17 0318 10/17/17 0318 Imaging Last 72 hours Impressions Chest X-Ray 10/15/172016 Signed Impressions: Service Date/Time: Sunday, October 15, 2017 20:24 - CONCLUSION: 1. Basilar airspace disease. Differential diagnosis includes bronchopneumonia and aspiration. Probable trace pleural fluid. Cardiomegaly. Severe dextroscoliosis. Alvino Simmons MD Abdomen/Pelvis CT 10/15/172016 Signed Impressions: Service Date/Time: Sunday, October 15, 2017 23:09 - CONCLUSION: Right lung base consolidation and effusion with nonspecific nodular areas in the central right lung base. Gallstones and gallbladder wall calcification. Otherwise grossly nonacute appearance of the abdomen and pelvis. Sonu Nix MD Objective Remarks GENERAL: SKIN: Warm and dry. HEAD: Atraumatic. Normocephalic. EYES: Pupils equal and round. No scleral icterus. No injection or drainage. ENT: No nasal bleeding or discharge. Mucous membranes pink and moist. NECK: Trachea midline. No JVD. CARDIOVASCULAR: Regular rate and rhythm. RESPIRATORY: No accessory muscle use. Clear to auscultation. Breath sounds equal bilaterally. GASTROINTESTINAL: Abdomen soft, non-tender, nondistended. Hepatic and splenic margins not palpable. MUSCULOSKELETAL: Extremities without clubbing, cyanosis, or edema. No obvious deformities. NEUROLOGICAL: Awake and alert. No obvious cranial nerve deficits. Motor grossly within normal limits. R ANAHI, otherwise 1 out of 5 muscle strength in the arms and legs. PSYCHIATRIC: Appropriate mood and flat affect; insight and judgment normal. Medications and IVs Current Medications Medications (Trade) Dose Ordered Sig/Sheree Route Start Time Stop Time Status Last Admin Sodium Chloride 1,000 ml @ 75 mls/hr [id number] IV 10/16/17 01:45 10/17/17 05:33 (Zofran Inj) 4 mg Q6H PRN IV PUSH 10/16/17 01:45 10/16/17 01:38 (Ativan Inj) 0.5 mg Q6H PRN IV 10/16/17 01:45 (Depakote Dr) 500 mg BID PO 10/16/17 11:00 10/17/17 08:30 (Synthroid) 25 mcg DAILY@0600 PO 10/16/17 08:45 10/17/17 05:34 (Dilantin Liq) 100 mg TID PO 10/16/17 10:00 10/17/17 08:31 (NS Flush) 2 ml UNSCH PRN IV FLUSH 10/16/17 08:30 (NS Flush) 2 ml BID IV FLUSH 10/16/17 09:00 10/16/17 09:06 (Tylenol) 650 mg Q4H PRN PO 10/16/17 08:30 (Reglan Inj) 5 mg Q6H PRN IV PUSH 10/16/17 08:30 (Narcan Inj) 0.4 mg UNSCH PRN IV PUSH 10/16/17 08:30 (Deena-Colace) 1 tab BID PO 10/16/17 09:00 4/3/18 22:08 (Milk Of Magnesia Liq) 30 ml Q12H PRN PO 10/16/17 08:30 (Senokot) 17.2 mg Q12H PRN PO 10/16/17 08:30 (Dulcolax Supp) 10 mg DAILY PRN RECTAL 10/16/17 08:30 10/16/17 15:58 (Lactulose Liq) 30 ml DAILY PRN PO 10/16/17 08:30 (Duoneb Neb) 1 ampule QID NEB NEB 10/16/17 12:00 10/17/17 08:30 (Protonix Inj) 40 mg Q24H IV PUSH 10/16/17 10:00 10/16/17 10:16 Pharmacy Profile Note 0 ml @ 0 mls/hr UNSCH OTHER 10/16/17 08:45 Piperacillin Sod/ Tazobactam Sod 50 ml @ 100 mls/hr Q6H IV 10/16/17 10:00 10/17/17 04:19 Vancomycin HCl 750 mg/Sodium Chloride 257.5 ml @ 250 mls/hr Q12H IV 10/16/17 12:00 10/16/17 23:46 Miscellaneous Information SPECIFIC LAB TO BE DRAWN:VANCOMYCIN TROUGH DATE TO... ONCE ONCE .XX 10/18/17 11:45 10/18/17 11:46 Lactated Ringer's 1,000 ml @ 30 mls/hr Q24H PRN IV 10/17/17 03:15 10/20/17 03:14 Sodium Chloride 500 ml @ 30 mls/hr [id number] PRN IV 10/17/17 03:15 10/20/17 03:14 (Lopressor) 25 mg CUSTOMER SERVICE REPRESENTATIVE TELLER PRN PO 10/17/17 03:15 10/20/17 03:14 (Betadine 5% Antisepsis Kit) 1 applic CUSTOMER SERVICE REPRESENTATIVE TELLER PRN EACH NARE 10/17/17 03:15 10/20/17 03:14 (Chlorhexidine 2% Cloth) 3 pack CUSTOMER SERVICE REPRESENTATIVE TELLER PRN TOPICAL 10/17/17 03:15 10/20/17 03:14 (NovoLIN R INJ) See Protocol Table ... CUSTOMER SERVICE REPRESENTATIVE TELLER PRN SQ 10/17/17 03:15 10/20/17 03:14 A/P Assessment and Plan ASSESSMENT: Sepsis. Pneumonia. Aspiration. Urinary tract infection. Neurogenic bladder with chronic indwelling Leary. Hematemesis, questionable. Vomiting. Abdominal pain Hyponatremia. Seizures. Cerebrovascular accident with right hemiparesis. Hyperglycemia. Lymphoma. Ventriculoperitoneal shunt. Severe dextroscoliosis. PLAN: -iv ABX. -Consult Infectious Disease for sepsis. -GI consult for hematemesis and abdominal pain: egd today october 17, -Surgery consult -Morning CBC and BMP. -Blood cultures. -Followup blood cultures. -Followup urine culture. -IV normal saline at 75 mL per hour. -Continue Depakote. -Continue Synthroid. -Protonix 40 IV b.i.d. for gastrointestinal prophylaxis. -Deep venous thrombosis prophylaxis with SCDs and TEDs and no chemical prophylaxis as she may have had some hematemesis. -Telemetry. -Physical therapy. -Occupational therapy. -Speech therapy. -30 minutes spent with the patient, half of which was counseling and coordination of care. Aquilino Piña MD Oct 17, 2017 09:47
[2017-10-17] MEDS: PANTOPRAZOLE SODIUM 40 MG VIAL IV PUSH SCH (10:13)
[2017-10-17] MEDS: VANCOMYCIN INJ 750 MG in SODIUM CHLOR 0.9% 250 ML INJ 250 ML IV SCH ×2 (11:50→23:53)
[2017-10-17] MEDS ORDERED: LIDOCAINE HCL 1% PF 5 ML SYRINGE OTHER ONE (12:00)
[2017-10-17] MEDS ORDERED: PROPOFOL 200 MG/20 ML AMP IV ONE (12:00)
--- NOTE | 2017-10-17 14:46 | GIPROC ---
[facility] [address] [facility]. [facility], [address] EGD PROCEDURE REPORT EXAM DATE: 10/17/2017 PATIENT NAME: Su Clayton MR #: [id number] BIRTHDATE: 1940 ATTENDING: Vasile Boudreaux MD ORDER #: [id number] PUSH BUTTON SWITCH ASSEMBLER: Avelina Garza and Shasta Gregory STATUS: inpatient INDICATIONS: The patient is a 77 yr old female here for an EGD due to epigastric abdominal pain PROCEDURE PERFORMED: EGD w/ biopsy MEDICATIONS: None and Per Anesthesia. TOPICAL ANESTHETIC: CONSENT: The patient understands the risks and benefits of the procedure and understands that these risks include, but are not limited to: sedation, allergic reaction, infection, perforation and/or bleeding. Alternative means of evaluation and treatment include, among others: physical exam, x-rays, and/or surgical intervention. The patient elects to proceed with this endoscopic procedure. medical equipment was checked for proper function. Hand hygiene and appropriate measures for infection prevention was taken. After the risks, benefits and alternatives of the procedure were thoroughly explained, Informed consent was verified, confirmed and timeout was successfully executed by the treatment team. The patient was anesthetized with topical anesthesia and the Pentax [id number] endoscope was introduced through the mouth and advanced to the second portion of the duodenum. Retroflexed views revealed no abnormalities The gastroscope was then slowly withdrawn and removed. ESOPHAGUS: There was LA Class B esophagitis noted. A biopsy was performed using cold forceps. Sample sent for histology. STOMACH: There was erythematous moderate gastritis in the gastric antrum. A biopsy was performed using cold forceps. Sample sent for histology. DUODENUM: The duodenal mucosa appeared normal in the bulb and second portion of the duodenum. ADVERSE EVENTS: There were no complications. IMPRESSIONS: 1. There was LA Class B esophagitis noted; biopsy was performed 2. There was erythematous gastritis in the gastric antrum; biopsy was performed 3. Normal duodenal mucosa in the bulb and second portion of the duodenum 4. Retroflexed views revealed no abnormalities RECOMMENDATIONS: 1. Await biopsy results. Biopsy results will not be ready for 7-10 days. If you don't hear from us in two weeks, call our office for biopsy results. 2. Anti-reflux regimen 3. Continue PPI 4. Avoid NSAIDS PATIENT CONDITION: stable DISPOSITION: Inpatient REPEAT EXAM: Return 3 months EGD pending biopsy results Vasile Boudreaux MD eSigned: Vasile Boudreaux MD 10/17/2017 2:46 PM cc: PATIENT NAME: Su Clayton MR#: [id number]
[2017-10-18] VITALS (7 sets, daily range): BP systolic 123–153; BP diastolic 60–75; PULSE 82–98; RESP 18–36; TEMP 97.8–99.3; O2SAT 89–98
[2017-10-18] MEDS: PIPERACIL-TAZO 3.375 GM PREMIX 50 ML IV SCH ×2 (03:55→09:31)
[2017-10-18 04:27] LABS: AUTOMATED NEUTROPHIL # 3.2 TH/MM3 (1.8-7.7); BASOPHIL % 0.8 % (0.0-2.0); EOSINOPHIL % 0.5 % (0.0-4.0); HEMATOCRIT 36.8 % (35.0-46.0); HEMOGLOBIN 12.5 GM/DL (11.6-15.3); LYMPH % 20.9 % (9.0-44.0); LYMPHOCYTE # 1.1 TH/MM3 (1.0-4.8); MEAN CELL VOLUME 94.3 FL (80.0-100.0); MEAN CORPUSCULAR HEMOGLOBIN 31.9 PG (27.0-34.0); MEAN CORPUSCULAR HGB CONC 33.8 % (32.0-36.0); MEAN PLATELET VOLUME 8.1 FL (7.0-11.0); MONO % 15.6 % (0.0-8.0); MONOCYTE # 0.8 TH/MM3 (0-0.9); NEUT % 62.2 % (16.0-70.0); PLATELET COUNT 213 TH/MM3 (150-450); RED BLOOD COUNT 3.91 MIL/MM3 (4.00-5.30); RED CELL DISTRIBUTION WIDTH 13.1 % (11.6-17.2); WHITE BLOOD COUNT 5.2 TH/MM3 (4.0-11.0)
[2017-10-18 04:58] LABS: BICARBONATE 24.2 MEQ/L (21.0-32.0); CALCIUM 8.2 MG/DL (8.5-10.1); CREATININE 0.26 MG/DL (0.50-1.00)
[2017-10-18] MEDS: LEVOTHYROXINE SODIUM 25 MCG TAB PO SCH (05:43)
[2017-10-18] MEDS: RESP: ALBUTEROL 2.5 MG/IPRATROPIUM 0.5 MG NEB (SCH) NEB ×4 (08:34→20:02)
[2017-10-18] MEDS: DOCUSATE SODIUM 50 MG/SENNA 8.6 MG TAB PO SCH ×2 (09:00→20:20)
[2017-10-18] MEDS: PHENYTOIN SUSP 100 MG/4 ML CUP PO SCH ×3 (09:15→17:15)
[2017-10-18] MEDS: PANTOPRAZOLE SODIUM 40 MG VIAL IV PUSH SCH (09:16)
[2017-10-18] MEDS: DIVALPROEX DR 500 MG TABEC PO SCH ×2 (09:16→20:20)
[2017-10-18] MEDS: SODIUM CHLORIDE 0.9% FLUSH 10 ML FLUSH IV FLUSH SCH ×2 (09:16→20:19)
[2017-10-18] MEDS ORDERED: PHARMACY ORDERED LAB ONE (11:45)
[2017-10-18] MEDS: VANCOMYCIN INJ 750 MG in SODIUM CHLOR 0.9% 250 ML INJ 250 ML IV SCH (12:21)
--- NOTE | 2017-10-18 14:26 | HHI.GIFU ---
Subjective Remarks Pt resting in bed in NAD. She says she wants someone to talk to. + BM. still having abd pain. (Fernanda Olsen) Objective Vitals I&O Vital Signs Date Time Temp Pulse Resp B/P (MAP) Pulse Ox O2 Delivery O2 Flow Rate FiO2 10/18/17 11:52 97.8 98 18 123/60 (81) 93 10/18/17 08:35 97 21 10/18/17 07:34 98.5 82 18 153/73 (99) 98 10/18/17 04:00 98.5 86 20 146/69 (94) 93 10/18/17 00:01 98.3 88 20 144/71 (95) 98 10/17/17 20:33 99 Nasal Cannula 4.00 10/17/17 20:02 98.0 86 24 136/65 (88) 98 10/17/17 20:00 94 10/17/17 15:30 97.9 85 16 174/92 (119) 94 10/17/17 15:05 80 18 117/65 (82) 97 Nasal Cannula 2 I/O 10/17/17 10/17/17 10/17/17 10/18/17 10/18/17 10/18/17 07:00 15:00 23:00 07:00 15:00 23:00 Intake Total 1114 ml 200 ml 120 ml 240 ml Output Total 2000 ml 700 ml 1150 ml Balance -886 ml 200 ml -580 ml -910 ml Intake Oral 120 ml 240 ml IV Total 1114 ml Other 200 ml Output Urine Total 2000 ml 700 ml 1150 ml # Bowel Movements 1 1 Laboratory Laboratory Tests Test 10/18/17 03:58 10/18/17 12:00 White Blood Count 5.2 Red Blood Count 3.91 Hemoglobin 12.5 Hematocrit 36.8 Mean Corpuscular Volume 94.3 Mean Corpuscular Hemoglobin 31.9 Mean Corpuscular Hemoglobin Concent 33.8 Red Cell Distribution Width 13.1 Platelet Count 213 Mean Platelet Volume 8.1 Neutrophils (%) (Auto) 62.2 Lymphocytes (%) (Auto) 20.9 Monocytes (%) (Auto) 15.6 Eosinophils (%) (Auto) 0.5 Basophils (%) (Auto) 0.8 Neutrophils # (Auto) 3.2 Lymphocytes # (Auto) 1.1 Monocytes # (Auto) 0.8 Eosinophils # (Auto) 0.0 Basophils # (Auto) 0.0 CBC Comment DIFF FINAL Differential Comment Blood Urea Nitrogen 5 Creatinine 0.26 Random Glucose 76 Calcium Level 8.2 Sodium Level 140 Potassium Level 3.5 Chloride Level 107 Carbon Dioxide Level 24.2 Anion Gap 9 Estimat Glomerular Filtration Rate 254 Vancomycin Level Trough 10.5 Date/Time Source Procedure Growth Status 10/16/17 10:17 Blood Peripheral Aerobic Blood Culture - Preliminary NO GROWTH IN 2 DAYS Resulted 10/16/17 10:17 Blood Peripheral Anaerobic Blood Culture - Preliminary NO GROWTH IN 2 DAYS Resulted 10/15/17 20:30 Urine Random Urine Urine Culture - Final Proteus Mirabilis Escherichia Coli Esbl Positive Multi-Drug Resistant Complete Imaging Last Impressions Chest X-Ray 10/15/172016 Signed Impressions: Service Date/Time: Sunday, October 15, 2017 20:24 - CONCLUSION: 1. Basilar airspace disease. Differential diagnosis includes bronchopneumonia and aspiration. Probable trace pleural fluid. Cardiomegaly. Severe dextroscoliosis. Alvino Simmons MD Abdomen/Pelvis CT 10/15/172016 Signed Impressions: Service Date/Time: Sunday, October 15, 2017 23:09 - CONCLUSION: Right lung base consolidation and effusion with nonspecific nodular areas in the central right lung base. Gallstones and gallbladder wall calcification. Otherwise grossly nonacute appearance of the abdomen and pelvis. Sonu Nix MD Physical Exam HEENT: PERRL; normocephalic; atraumatic; no jaundice. CHEST: CTA, diminished CARDIAC: RRR ABDOMEN: Soft, nondistended, nontender; no hepatosplenomegaly; bowel sounds are present in all four quadrants. EXTREMITIES: No clubbing, cyanosis, or edema. right side weakness SKIN: Normal; no rash; no jaundice. SOLDER TECHNICIAN:alert, dysarthria (Fernanda Olsen) Assessment and Plan Plan ASSESSMENT - n/v, questionable abd pain and hematemesis - reports of maroon emesis in EMR from her SNF but pt denies this. HH currently WNL. hx limited, pt has dysarthria but does seem AOx3 - constipation - unclear when last BM was, 2-[address] showing stool in rectum. abd pain could be d/t constipation 10/18/17 pt resting in bed. +BM. EGD yesterday found class B esophagitis, erythematous gastritis. bx pending still having abd pain. pureed diet and nectar thick per penology teacher. HH stable. PLAN - await bx - diet per ASSOCIATE PASTOR - notify GI of active bleeding - monitor HH pt seen by myself and Dr Boudreaux and this note is on his behalf. (Fernanda Olsen) Physician Comments Seen and examined with SANDI, no bleeding, tolerating po diet. S/P egd biopsies pending. GI will sign off, fu as needed. Thank you (Vasile Boudreaux MD) Fernanda Olsen Oct 18, 2017 14:26 Vasile Boudreaux MD Oct 18, 2017 17:09
--- NOTE | 2017-10-18 15:26 | HHI.FPPN ---
Subjective Remarks lethargic not at baseline c/o cough c/o weakness c/o bladder pain d/w RN Objective Vitals Vital Signs Date Time Temp Pulse Resp B/P (MAP) Pulse Ox O2 Delivery O2 Flow Rate FiO2 10/18/17 11:52 97.8 98 18 123/60 (81) 93 10/18/17 08:35 97 21 10/18/17 07:34 98.5 82 18 153/73 (99) 98 10/18/17 04:00 98.5 86 20 146/69 (94) 93 10/18/17 00:01 98.3 88 20 144/71 (95) 98 10/17/17 20:33 99 Nasal Cannula 4.00 10/17/17 20:02 98.0 86 24 136/65 (88) 98 10/17/17 20:00 94 10/17/17 15:30 97.9 85 16 174/92 (119) 94 I/O 10/17/17 10/17/17 10/17/17 10/18/17 10/18/17 10/18/17 07:00 15:00 23:00 07:00 15:00 23:00 Intake Total 1114 ml 200 ml 120 ml 240 ml Output Total 2000 ml 700 ml 1150 ml Balance -886 ml 200 ml -580 ml -910 ml Intake Oral 120 ml 240 ml IV Total 1114 ml Other 200 ml Output Urine Total 2000 ml 700 ml 1150 ml # Bowel Movements 1 1 Result Diagram: 10/18/17 0358 10/18/17 0358 Objective Remarks GENERAL: SKIN: Warm and dry. HEAD: Atraumatic. Normocephalic. EYES: Pupils equal and round. No scleral icterus. No injection or drainage. ENT: No nasal bleeding or discharge. Mucous membranes pink and moist. NECK: Trachea midline. No JVD. CARDIOVASCULAR: Regular rate and rhythm. RESPIRATORY: No accessory muscle use. Clear to auscultation. Breath sounds equal bilaterally. GASTROINTESTINAL: Abdomen soft, non-tender, nondistended. Hepatic and splenic margins not palpable. MUSCULOSKELETAL: Extremities without clubbing, cyanosis, or edema. No obvious deformities. NEUROLOGICAL: Awake and alert. No obvious cranial nerve deficits. Motor grossly within normal limits. R ANAHI, otherwise 1 out of 5 muscle strength in the arms and legs. PSYCHIATRIC: Appropriate mood and flat affect; insight and judgment normal. Medications and IVs Current Medications Medications (Trade) Dose Ordered Sig/Sheree Route Start Time Stop Time Status Last Admin Sodium Chloride 1,000 ml @ 75 mls/hr [id number] IV 10/16/17 01:45 10/18/17 20:17 (Zofran Inj) 4 mg Q6H PRN IV PUSH 10/16/17 01:45 10/16/17 01:38 (Ativan Inj) 0.5 mg Q6H PRN IV 10/16/17 01:45 10/17/17 17:06 (Depakote Dr) 500 mg BID PO 10/16/17 11:00 10/18/17 20:20 (Synthroid) 25 mcg DAILY@0600 PO 10/16/17 08:45 10/18/17 05:43 (Dilantin Liq) 100 mg TID PO 10/16/17 10:00 10/18/17 17:15 (NS Flush) 2 ml UNSCH PRN IV FLUSH 10/16/17 08:30 (NS Flush) 2 ml BID IV FLUSH 10/16/17 09:00 10/18/17 20:19 (Tylenol) 650 mg Q4H PRN PO 10/16/17 08:30 (Reglan Inj) 5 mg Q6H PRN IV PUSH 10/16/17 08:30 (Narcan Inj) 0.4 mg UNSCH PRN IV PUSH 10/16/17 08:30 (Deena-Colace) 1 tab BID PO 10/16/17 09:00 10/18/17 20:20 (Milk Of Magnesia Liq) 30 ml Q12H PRN PO 10/16/17 08:30 (Senokot) 17.2 mg Q12H PRN PO 10/16/17 08:30 (Dulcolax Supp) 10 mg DAILY PRN RECTAL 10/16/17 08:30 10/16/17 15:58 (Lactulose Liq) 30 ml DAILY PRN PO 10/16/17 08:30 (Duoneb Neb) 1 ampule QID NEB NEB 10/16/17 12:00 10/18/17 20:02 (Protonix Inj) 40 mg Q24H IV PUSH 10/16/17 10:00 10/18/17 09:16 Pharmacy Profile Note 0 ml @ 0 mls/hr UNSCH OTHER 10/16/17 08:45 Lactated Ringer's 1,000 ml @ 30 mls/hr Q24H PRN IV 10/17/17 03:15 10/20/17 03:14 10/17/17 13:40 Sodium Chloride 500 ml @ 30 mls/hr [id number] PRN IV 10/17/17 03:15 10/20/17 03:14 (Lopressor) 25 mg BODS DEVELOPER PRN PO 10/17/17 03:15 10/20/17 03:14 (Betadine 5% Antisepsis Kit) 1 applic BODS DEVELOPER PRN EACH NARE 10/17/17 03:15 10/20/17 03:14 (Chlorhexidine 2% Cloth) 3 pack BODS DEVELOPER PRN TOPICAL 10/17/17 03:15 10/20/17 03:14 (NovoLIN R INJ) See Protocol Table ... BODS DEVELOPER PRN SQ 10/17/17 03:15 10/20/17 03:14 Vancomycin HCl 1000 mg/Sodium Chloride 250 ml @ 250 mls/hr Q12H IV 10/19/17 00:00 Miscellaneous Information SPECIFIC LAB TO BE DRAWN: VANCO TROUGH DATE... ONCE ONCE .XX 10/20/17 11:45 10/20/17 11:46 (ASP Crit: Doc ESBL, MDR A baumannii or P aer) 1 UNSCH X1 PRN .XX 10/18/17 17:15 10/19/17 17:14 ([facility] Information) 1 UNSCH X1 PRN XX 10/18/17 17:15 10/19/17 17:14 Ertapenem 1000 mg/ Sodium Chloride 100 ml @ 200 mls/hr Q24H IV 10/18/17 20:00 10/18/17 20:17 A/P Assessment and Plan ASSESSMENT: Sepsis. Pneumonia. Aspiration. Esophagitis on EGD Urinary tract infection. Neurogenic bladder with chronic indwelling Leary. Hematemesis, questionable. Vomiting. Abdominal pain Hyponatremia. Seizures. Cerebrovascular accident with right hemiparesis. Hyperglycemia. Lymphoma. Ventriculoperitoneal shunt. Severe dextroscoliosis. PLAN: -await bx per GI -iv ABX. -Consult Infectious Disease for sepsis. -GI consult for hematemesis and abdominal pain: egd october 17 showed esophagitis, -Surgery consult -Morning CBC and BMP. -Blood cultures. -Followup blood cultures. -Followup urine culture. -IV normal saline at 75 mL per hour. -Continue Depakote. -Continue Synthroid. -Protonix 40 IV b.i.d. for gastrointestinal prophylaxis. -Deep venous thrombosis prophylaxis with SCDs and TEDs and no chemical prophylaxis as she may have had some hematemesis. -Telemetry. -Physical therapy. -Occupational therapy. -Speech therapy. -25 minutes spent with the patient, half of which was counseling and coordination of care. Aquilino Piña MD Oct 18, 2017 15:26
[2017-10-18] MEDS ORDERED: MISCELLANEOUS PHARMACY INFORMATION XX PRN (17:15)
[2017-10-18] MEDS ORDERED: ASP: Documented ESBL, MDR A baumannii or P. aeruginosa PRN (17:15)
[2017-10-18] MEDS ORDERED: ERTAPENEM INJ 1,000 MG in SODIUM CHLORIDE 0.9% INJ 100 ML IV SCH (20:00)
[2017-10-18] MEDS: SODIUM CHLOR 0.9% 1000 ML INJ 1,000 ML IV SCH (20:17)
[2017-10-19] VITALS: BP 157/70; PULSE 87; RESP 18; TEMP 97.6; O2SAT 90
[2017-10-19] MEDS: VANCOMYCIN 1,000 MG/NS 250 ML IV SCH ×4 (00:50→12:00)
[2017-10-19 04:00] VITALS: BP 141/77; PULSE 77; RESP 18; TEMP 98; O2SAT 90
[2017-10-19] MEDS: LEVOTHYROXINE SODIUM 25 MCG TAB PO SCH (05:34)
[2017-10-19 06:30] LABS: AUTOMATED NEUTROPHIL # 3.5 TH/MM3 (1.8-7.7); BASOPHIL % 0.7 % (0.0-2.0); EOSINOPHIL # 0.1 TH/MM3 (0-0.4); EOSINOPHIL % 1.2 % (0.0-4.0); HEMOGLOBIN 12.8 GM/DL (11.6-15.3); LYMPH % 23.9 % (9.0-44.0); LYMPHOCYTE # 1.4 TH/MM3 (1.0-4.8); MEAN CELL VOLUME 93.2 FL (80.0-100.0); MEAN CORPUSCULAR HEMOGLOBIN 31.5 PG (27.0-34.0); MEAN CORPUSCULAR HGB CONC 33.8 % (32.0-36.0); MEAN PLATELET VOLUME 7.8 FL (7.0-11.0); MONO % 15.4 % (0.0-8.0); MONOCYTE # 0.9 TH/MM3 (0-0.9); NEUT % 58.8 % (16.0-70.0); PLATELET COUNT 242 TH/MM3 (150-450); RED BLOOD COUNT 4.07 MIL/MM3 (4.00-5.30); RED CELL DISTRIBUTION WIDTH 13.2 % (11.6-17.2); WHITE BLOOD COUNT 5.9 TH/MM3 (4.0-11.0)
[2017-10-19 07:02] LABS: BICARBONATE 24.3 MEQ/L (21.0-32.0); CALCIUM 7.9 MG/DL (8.5-10.1); CREATININE 0.26 MG/DL (0.50-1.00)
[2017-10-19 08:00] VITALS: BP 134/63; PULSE 81; RESP 17; TEMP 97.8; O2SAT 91
[2017-10-19] MEDS: RESP: ALBUTEROL 2.5 MG/IPRATROPIUM 0.5 MG NEB (SCH) NEB ×2 (08:50→11:59)
[2017-10-19] MEDS: SODIUM CHLORIDE 0.9% FLUSH 10 ML FLUSH IV FLUSH SCH (09:00)
--- NOTE | 2017-10-19 09:28 | HHI.DS ---
Discharge Summary Admission Date Oct 16, 2017 at 01:14 Discharge Date: Oct 19, 2017 Admitting Diagnosis Pneumonia, UTI, Vomiting (1) Pneumonia ICD Codes: J18.9 - Pneumonia, unspecified organism Status: Acute (2) Pyuria ICD Codes: N39.0 - Urinary tract infection, site not specified Status: Acute (3) Hx of deep venous thrombosis ICD Codes: Z86.718 - Hx of deep venous thrombosis Status: Acute (4) CVA, old, hemiparesis ICD Codes: I69.359 - CVA, old, hemiparesis Status: Chronic (5) HTN (hypertension) ICD Codes: I10 - HTN (hypertension) Status: Chronic (6) UTI (urinary tract infection) ICD Codes: N39.0 - UTI (urinary tract infection) Status: Acute (7) Seizure disorder ICD Codes: G40.909 - Seizure disorder Status: Chronic (8) Depression ICD Codes: F32.9 - Depression Status: Acute (9) Anxiety ICD Codes: F41.9 - Anxiety Status: Acute (10) Lymphoma ICD Codes: C85.90 - Non-Hodgkin lymphoma, unspecified, unspecified site Status: Acute CBC/BMP: 10/19/17 0614 10/19/17 0614 Significant Findings Laboratory Tests Test 10/16/17 17:02 10/17/17 03:18 10/18/17 03:58 10/18/17 12:00 Red Blood Count 3.88 MIL/MM3 (4.00-5.30) 3.91 MIL/MM3 (4.00-5.30) Neutrophils (%) (Auto) 72.2 % (16.0-70.0) Monocytes (%) (Auto) 10.8 % (0.0-8.0) 15.6 % (0.0-8.0) Lymphocytes # (Auto) 0.9 TH/MM3 (1.0-4.8) Blood Urea Nitrogen 6 MG/DL (7-18) 5 MG/DL (7-18) Creatinine 0.23 MG/DL (0.50-1.00) 0.26 MG/DL (0.50-1.00) Random Glucose 66 MG/DL (74-106) Calcium Level 8.1 MG/DL (8.5-10.1) 8.2 MG/DL (8.5-10.1) Vancomycin Level Trough 10.5 MCG/ML (5.0-10.0) Test 10/19/17 06:14 Monocytes (%) (Auto) 15.4 % (0.0-8.0) Blood Urea Nitrogen 4 MG/DL (7-18) Creatinine 0.26 MG/DL (0.50-1.00) Calcium Level 7.9 MG/DL (8.5-10.1) Chloride Level 110 MEQ/L (98-107) PE at Discharge GENERAL: SKIN: Warm and dry. HEAD: Atraumatic. Normocephalic. EYES: Pupils equal and round. No scleral icterus. No injection or drainage. ENT: No nasal bleeding or discharge. Mucous membranes pink and moist. NECK: Trachea midline. No JVD. CARDIOVASCULAR: Regular rate and rhythm. RESPIRATORY: No accessory muscle use. Clear to auscultation. Breath sounds equal bilaterally. GASTROINTESTINAL: Abdomen soft, non-tender, nondistended. Hepatic and splenic margins not palpable. MUSCULOSKELETAL: Extremities without clubbing, cyanosis, or edema. No obvious deformities. NEUROLOGICAL: Awake and alert. No obvious cranial nerve deficits. Motor grossly within normal limits. R ANAHI, 1 out of 5 muscle strength in the L arms and legs. Normal speech. PSYCHIATRIC: Appropriate mood and affect; insight and judgment normal. Transfer Summary hospital course and plan was to- admit for- Sepsis. Pneumonia. Aspiration. Esophagitis on EGD Urinary tract infection. Neurogenic bladder with chronic indwelling Truong. Hematemesis, questionable. Vomiting. Abdominal pain Hyponatremia. Seizures. Cerebrovascular accident with right hemiparesis. Hyperglycemia. Lymphoma. Ventriculoperitoneal shunt. Severe dextroscoliosis. PLAN: -await bx per GI -PO abx -Consult Infectious Disease for sepsis. -GI consult for hematemesis and abdominal pain: egd october 17 showed esophagitis, -Surgery consult -Morning CBC and BMP. -Blood cultures. -Followup blood cultures. -Followup urine culture. -IV normal saline at 75 mL per hour. -Continue Depakote. -Continue Synthroid. -Protonix 40 IV b.i.d. for gastrointestinal prophylaxis. -Deep venous thrombosis prophylaxis with SCDs and TEDs and no chemical prophylaxis as she may have had some hematemesis. -Telemetry. -Physical therapy. -Occupational therapy. -Speech therapy. -40 minutes spent with the patient, half of which was counseling and coordination of care. -Discharge back to SNF w po abx and GI followup. Hospital Course Chronic UTI due to indwelling truong. Discharge Instructions Follow up Referrals: Gastroenterology - 1 Week with Vasile Boudreaux MD PCP Follow-up - 1 Week New Medications: Amoxicillin-Clavulanate (Augmentin) 875-125 Mg Tab 1 TAB PO BID for Infection, #10 TAB 0 Refills Nitrofurantoin Monohydrate Macrocrystals (Macrobid) 100 Mg Cap 100 MG PO BID for Infection for 10 Days, #20 CAP 0 Refills Continued Medications: Aspirin (Aspirin Low Dose) 81 Mg Chew 81 MG CHEW DAILY, TAB 0 Refills Atorvastatin (Atorvastatin) 10 Mg Tab 10 MG PO HS for Cholesterol Management, #30 TAB [address] (Depakote DR) 500 Mg Tabdr 500 MG PO BID for Control Seizures, #60 TAB 0 Refills Hydrocodone/Acetaminophen (Hydrocodone-Acetamin 5-325 mg) 5 Mg-325 Mg Tablet 1 TAB PO Q4HR PRN for pain, #120 TAB (This prescription has been renewed) Levothyroxine (Levothyroxine) 25 Mcg Tab 1 MCG PO DAILY for Thyroid, #30 TAB 0 Refills Ondansetron (Ondansetron) 8 Mg Tab 4 MG PO Q6HR for Nausea/Vomiting, TAB 0 Refills Phenytoin Liq (Phenytoin Liq) 125 Mg/5 Ml Rylee 4 ML PO TID, #237 ML 0 Refills Sertraline (Sertraline) 100 Mg Tab 100 MG PO DAILY, #30 TAB 0 Refills Tizanidine (Tizanidine) 2 Mg Tab 2 MG PO TID for Muscle Spasm, TAB 0 Refills Aquilino Piña MD Oct 19, 2017 09:28
[2017-10-19] MEDS ORDERED: HYDR-3516 PO (09:35)
[2017-10-19] MEDS ORDERED: AUGM875T3 PO (09:35)
[2017-10-19] MEDS ORDERED: DOXY100C PO (09:35)
--- NOTE | 2017-10-19 09:35 | HHI.DCPOC ---
Discharge Care Plan Diagnosis: (1) Hx of deep venous thrombosis (2) CVA, old, hemiparesis (3) HTN (hypertension) (4) UTI (urinary tract infection) (5) Seizure disorder (6) Lymphoma (7) Depression (8) Anxiety (9) Pneumonia Goals to Promote Your Health * To prevent worsening of your condition and complications * To maintain your health at the optimal level Directions to Meet Your Goals Take your medications as prescribed Follow your dietary instruction Follow activity as directed Keep your appointments as scheduled Take your immunizations and boosters as scheduled If your symptoms worsen call your PCP, if no PCP go to Urgent Care Center or Emergency Room Smoking is Dangerous to Your Health. Avoid second hand smoke Call the 24-hour hour crisis hotline for domestic abuse at Aquilino Piña MD Oct 19, 2017 09:35
[2017-10-19] MEDS ORDERED: MACR100C2 PO (09:39)
[2017-10-19] MEDS: SODIUM CHLOR 0.9% 1000 ML INJ 1,000 ML IV SCH (09:45)
[2017-10-19] MEDS: PHENYTOIN SUSP 100 MG/4 ML CUP PO SCH ×2 (11:03→12:59)
[2017-10-19] MEDS: PANTOPRAZOLE SODIUM 40 MG VIAL IV PUSH SCH (11:03)
[2017-10-19] MEDS: DOCUSATE SODIUM 50 MG/SENNA 8.6 MG TAB PO SCH (11:04)
[2017-10-19] MEDS: DIVALPROEX DR 500 MG TABEC PO SCH (11:04)
[2017-10-19 12:00] VITALS: BP 132/69; PULSE 77; RESP 17; TEMP 97.6; O2SAT 93
--- NOTE | 2017-10-19 12:28 | HHI.GIFU ---
Subjective Remarks Pt resting in bed No GI complaints at this time (Lisha Whitehead) Objective Vitals I&O Vital Signs Date Time Temp Pulse Resp B/P (MAP) Pulse Ox O2 Delivery O2 Flow Rate FiO2 10/19/17 12:00 97.6 77 17 132/69 (90) 93 10/19/17 08:00 97.8 81 17 134/63 (86) 91 10/19/17 04:00 98.0 77 18 141/77 (98) 90 10/19/17 00:00 97.6 87 18 157/70 (99) 90 10/18/17 20:00 99.3 92 36 137/75 (95) 89 10/18/17 20:00 90 10/18/17 16:00 98.9 91 18 131/68 (89) 93 I/O 10/18/17 10/18/17 10/18/17 10/19/17 10/19/17 10/19/17 06:59 14:59 22:59 06:59 14:59 22:59 Intake Total 240 ml Output Total 1150 ml 1500 ml Balance -910 ml -1500 ml Intake Oral 240 ml Output Urine Total 1150 ml 1500 ml # Bowel Movements 1 Laboratory Laboratory Tests Test 10/19/17 06:14 White Blood Count 5.9 Red Blood Count 4.07 Hemoglobin 12.8 Hematocrit 38.0 Mean Corpuscular Volume 93.2 Mean Corpuscular Hemoglobin 31.5 Mean Corpuscular Hemoglobin Concent 33.8 Red Cell Distribution Width 13.2 Platelet Count 242 Mean Platelet Volume 7.8 Neutrophils (%) (Auto) 58.8 Lymphocytes (%) (Auto) 23.9 Monocytes (%) (Auto) 15.4 Eosinophils (%) (Auto) 1.2 Basophils (%) (Auto) 0.7 Neutrophils # (Auto) 3.5 Lymphocytes # (Auto) 1.4 Monocytes # (Auto) 0.9 Eosinophils # (Auto) 0.1 Basophils # (Auto) 0.0 CBC Comment DIFF FINAL Differential Comment Blood Urea Nitrogen 4 Creatinine 0.26 Random Glucose 84 Calcium Level 7.9 Sodium Level 142 Potassium Level 3.5 Chloride Level 110 Carbon Dioxide Level 24.3 Anion Gap 8 Estimat Glomerular Filtration Rate 254 Date/Time Source Procedure Growth Status 10/16/17 10:17 Blood Peripheral Aerobic Blood Culture - Preliminary NO GROWTH IN 3 DAYS Resulted 4/3/18 10:17 Blood Peripheral Anaerobic Blood Culture - Preliminary NO GROWTH IN 3 DAYS Resulted 10/15/17 20:30 Urine Random Urine Urine Culture - Final Proteus Mirabilis Escherichia Coli Esbl Positive Multi-Drug Resistant Complete Imaging Last Impressions Chest X-Ray 10/15/172016 Signed Impressions: Service Date/Time: Sunday, October 15, 2017 20:24 - CONCLUSION: 1. Basilar airspace disease. Differential diagnosis includes bronchopneumonia and aspiration. Probable trace pleural fluid. Cardiomegaly. Severe dextroscoliosis. Alvino Simmons MD Abdomen/Pelvis CT 10/15/172016 Signed Impressions: Service Date/Time: Sunday, October 15, 2017 23:09 - CONCLUSION: Right lung base consolidation and effusion with nonspecific nodular areas in the central right lung base. Gallstones and gallbladder wall calcification. Otherwise grossly nonacute appearance of the abdomen and pelvis. Sonu Nix MD Physical Exam HEENT: Normocephalic; atraumatic CHEST: Even/unlabored ABDOMEN: Soft, nondistended, nontender, bowel sounds active EXTREMITIES: No edema SKIN: pale BANQUET LINE COOK: Awake, answers questions appropriately (Lisha Whitehead) Assessment and Plan Plan ASSESSMENT - Reports of hematemesis and abdominal pain, pt confused and unable to answer questions appropriately, per Dr. Piña notes who knows her from nursing facility, she is not at her baseline. H/H stable. INR 1.1. No blood thinners listed on facility MAR, is on daily baby ASA - Constipation- reports of no BM at facility for a few days prior to hospitalization. - Sepsis, pneumonia- per attending CT abdomen and pelvis W IV contrast (10/15) --> Right lung base consolidation and effusion with nonspecific nodular areas in the central right lung base. Gallstones and gallbladder calcification. Otherwise grossly nonacute appearance of the abdomen and pelvis. EGD (10/17) --> Class B esophagitis noted, biopsy. Erythematous gastritis in the gastric antrum, biopsy. Normal duodenal mucosa in the bulb and second portion of the duodenum. (10/19) Pt with no GI complaints at this time. H/H remains stable. Dr. Piña has in orders for DC today. 2 BMS documented from the . PLAN - EGD biopsy pending - Protonix - Bowel regimen for constipation - OK to DC from a GI standpoint - Have pt follow up with GI in the office in 1-2 weeks This patient has been seen and examined by myself and Dr. Boudreaux and this note is written on his behalf (Lisha Whitehead) Physician Comments No gi bleeding. DC home with gi fu. (Vasile Boudreaux MD) Lisha Whitehead Oct 19, 2017 12:28 Vasile Boudreaux MD Oct 19, 2017 16:10
[2017-10-20] MEDS ORDERED: PHARMACY ORDERED LAB ONE (11:45)
== END 2017-10-19 14:45 | DRG 698 ==
LOC: NEPE 19:05 → NEDA 10-16 01:14 → NEDH 10-16 05:43 → N03B 10-16 13:59 → N07B 10-18 22:16
PROVIDERS: ADMIT Family Medicine; ATTEND Family Medicine
PROC: 0DB68ZX Excision of Stomach, Via Natural or Artificial Opening Endoscopic, Diagnostic (ICD-10-PCS; 2017-10-17)
PROC: 0DB58ZX Excision of Esophagus, Via Natural or Artificial Opening Endoscopic, Diagnostic (ICD-10-PCS; principal; 2017-10-17 14:16)
DX: T83.511A Infection and inflammatory reaction due to indwelling urethral catheter, initial encounter (principal); A41.9 Sepsis, unspecified organism; N39.0 Urinary tract infection, site not specified; J18.9 Pneumonia, unspecified organism; C85.90 Non-Hodgkin lymphoma, unspecified, unspecified site; I69.351 Hemiplegia and hemiparesis following cerebral infarction affecting right dominant side; N31.9 Neuromuscular dysfunction of bladder, unspecified; E87.1 Hypo-osmolality and hyponatremia; Y84.6 Urinary catheterization as the cause of abnormal reaction of the patient, or of later complication, without mention of misadventure at the time of the procedure; I10 Essential (primary) hypertension; G40.909 Epilepsy, unspecified, not intractable, without status epilepticus; F32.9 Major depressive disorder, single episode, unspecified; F41.9 Anxiety disorder, unspecified; R73.9 Hyperglycemia, unspecified; M81.0 Age-related osteoporosis without current pathological fracture; Z79.82 Long term (current) use of aspirin; K29.70 Gastritis, unspecified, without bleeding; K21.0 Gastro-esophageal reflux disease with esophagitis; M10.9 Gout, unspecified; R47.1 Dysarthria and anarthria; K59.00 Constipation, unspecified; K43.2 Incisional hernia without obstruction or gangrene; M41.9 Scoliosis, unspecified; K20.9 Esophagitis, unspecified; E07.9 Disorder of thyroid, unspecified; Z98.2 Presence of cerebrospinal fluid drainage device; Z86.718 Personal history of other venous thrombosis and embolism; Z92.21 Personal history of antineoplastic chemotherapy
CPT/HCPCS: 71045; 74177; 80048; 80053; 80202; 81001; 83605; 83690; 85025; 85610; 85730; 87040; 87077; 87086; 87186; 88305; 88312; 93005; 94640; 94664; 96365; 96375; C9113; J1335; J1956; J2060; J2405; J2543; J3370; J7030; J7050; J7120; Q9967

== ENCOUNTER 2018-02-01 23:39 | Inpatient (IN) ==
--- NOTE | 2018-02-02 00:41 | ED ---
HPI General Chief complaint: Seizure Stated complaint: Seizure Time Seen by Provider: 02/02/18 00:12 Source: EMS and old records reviewed Mode of arrival: EMS Limitations: altered mental status History of Present Illness HPI narrative: Patient is a 77-year-old female living at a group home seen to have 2 seizures tonight paramedics were called they witnessed her focal staring gave her IM injection of Versed 2 mg. Now patient comes to the ER very sedated lethargic maintaining her airway. Vitals are within normal. Initially mild hypotension most likely due to the Versed. Patient has a list of medications that came from the group home with her. Apparently she is on Levaquin apparently for a possible urine infection. She has an indwelling Leary and she is also on phenytoin with apparent history of seizures no HPI or ROS is unobtainable due to the fact that she is altered postictal and sedated. 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 On arrival she is sedated most likely postictal from the Versed as well as postictal state her body is contorted almost tenderness shape but that is what apparently is her chronic state of body positioning since she had her CVA and brain tumor and surgery Related Data Home Medications Medication Instructions Recorded Confirmed Lactobacillus rhamnosus GG 1 cap PO DAILY 01/22/18 02/02/18 [Culturelle] Multi Vitamin 1 tab PO DAILY 01/22/18 02/02/18 acetaminophen [Tylenol] 650 mg PO Q4H PRN 01/22/18 02/02/18 ascorbic acid (vitamin C) [Vitamin 500 mg PO BID 01/22/18 02/02/18 C] aspirin [Aspirin Low Dose] 81 mg PO DAILY 01/22/18 02/02/18 atorvastatin 10 mg PO DAILY 01/22/18 02/02/18 bisacodyl [Dulcolax (bisacodyl)] 1 suppositor NV DAILY PRN 01/22/18 02/02/18 divalproex [Depakote] 500 mg PO BID 01/22/18 02/02/18 hydrocodone-acetaminophen 1 tab PO Q4-6H PRN 01/22/18 02/02/18 ipratropium-albuterol 3 ml INHALATION QID 01/22/18 02/02/18 levothyroxine 25 mcg PO DAILY 01/22/18 02/02/18 magnesium hydroxide [Milk of 30 ml PO DAILY PRN 01/22/18 02/02/18 Magnesia] ondansetron HCl [Zofran] 4 mg PO Q6-8H PRN 01/22/18 02/02/18 pantoprazole 40 mg PO DAILY 01/22/18 02/02/18 phenytoin 100 mg PO TID 01/22/18 02/02/18 sennosides [Senna Laxative] 8.6 mg PO DAILY 01/22/18 02/02/18 sertraline 100 mg PO DAILY 01/22/18 02/02/18 tizanidine 2 mg PO TID PRN 01/22/18 02/02/18 acetylcysteine 3 ml INHALATION BID 01/24/18 02/02/18 cholestyramine (with sugar) 4 g PO TID 01/24/18 02/02/18 levofloxacin 500 mg PO DAILY 01/24/18 02/02/18 Allergies Allergy/AdvReac Type Severity Reaction Status Date / Time milk Allergy Unknown LACTOSE Verified 02/01/18 23:48 INTOLERANT chocolate flavor AdvReac Unknown "MAKES ME Verified 02/01/18 23:48 HYPER" MRI PRECAUTION AdvReac Severe SHUNT/ Uncoded 01/24/18 09:45 METAL CLIP IN BRAIN PER DR CLINE KD 06/15/08 *MDRO Multi-Drug Resistant AdvReac Unknown UNKNOWN Uncoded 01/24/18 09:45 Organism Review of Systems ROS Unobtainable unobtainable due to mental status PMFSH Social History Social History Substance History: No History of Abuse Second Hand Smoke Exposure: No Smoking Status: Never smoker How Often Do You Have a Drink Containing Alcohol: Never Recent Travel in [facility] within the Last 8 Weeks: No Recent Out of Country Travel within the Last 8 Weeks: No Immunization History Tetanus Immunization: Unsure Hx Influenza Vaccine This Season: Unable to Assess Exam Narrative Exam Narrative: GENERAL: Patient is lethargic sedated has leg braces on her legs opens eyes to command SKIN: Warm and dry. HEAD: Atraumatic. Normocephalic. EYES: Pupils equal and round. No scleral icterus. No injection or drainage. ENT: No nasal bleeding or discharge. Mucous membranes pink and moist. NECK: Trachea midline. No JVD. CARDIOVASCULAR: Regular rate and rhythm. RESPIRATORY: No accessory muscle use. Clear to auscultation. Breath sounds equal bilaterally. GASTROINTESTINAL: Abdomen soft, non-tender, nondistended. Hepatic and splenic margins not palpable. MUSCULOSKELETAL: Extremities patient has leg supports to keep her feet at 90 angles on both feet there are braces NEUROLOGICAL: Awake and alert. However patient is not speaking she is awake after observation of 5 hours but will not answer questions will not speak no facial droop she does keep her right hand contracted in 90 and hand made into a fist assumedly from prior CVA Psychologically : non-verbal unable to assess her mental status in terms of psychology Course Initial Documented Vital Signs Temperature 97.7 F 02/01/18 23:51 Pulse Rate 79 02/01/18 23:51 Respiratory Rate 14 02/01/18 23:51 Blood Pressure 97/55 L 02/01/18 23:51 Pulse Oximetry 98 02/01/18 23:51 Last Documented Vital Signs Temperature 98.0 F 02/03/18 20:00 Pulse Rate 76 02/03/18 20:00 Respiratory Rate 15 02/03/18 20:00 Blood Pressure 103/55 L 02/03/18 20:00 Pulse Oximetry 99 02/03/18 20:00 Medical Decision Making [facility] Narrative Medical decision making narrative: Patient is worked up for CAT scan shows the old ventricular shunt in place no change chest x-ray questionable CT is done there is no new findings old standard comparison to the old imaging there is no new findings that would explain any need for further eval urine is negative labs within normal limits however she has not returned to her baseline postictal as well as post Versed in the ambulance we will admit her for observation and a neurological consult Lab Data Result diagrams: 02/03/18 17:59 02/03/18 11:52 Lab Results 02/02/18 02/02/18 02/02/18 Range/Units 00:20 00:20 00:20 WBC 4.8 (4.0-11.0) th/mm3 RBC 4.29 (4.00-5.30) mil/mm3 Hgb 13.2 (11.6-15.3) gm/dL Hct 39.5 (35.0-46.0) % MCV 92.2 (80.0-100.0) fL MCH 30.9 (27.0-34.0) pg MCHC 33.5 (32.0-36.0) % RDW 14.6 (11.6-17.2) % Plt Count 320 (150-450) th/mm3 MPV 8.8 (7.0-11.0) fL Prelim Diff (Auto) Neut % (Auto) 51.6 (16.0-70.0) % Lymph % (Auto) 32.2 (9.0-44.0) % Moore % (Auto) 13.9 H (0.0-8.0) % Eos % (Auto) 1.4 (0.0-4.0) % Baso % (Auto) 0.9 (0.0-2.0) % Neut # (Auto) 2.5 (1.8-7.7) th/mm3 Lymph # (Auto) 1.6 (1.0-4.8) th/mm3 Moore # (Auto) 0.7 (0.0-0.9) th/mm3 Eos # (Auto) 0.1 (0.0-0.4) th/mm3 Baso # (Auto) 0.0 (0.0-0.2) th/mm3 WBC Differential . Diff Scan Differential Comment Auto diff final Platelet Estimate (Normal) Platelet Morphology (Normal) Acanthocytes (Spur) (None) Sodium 138 (136-145) meq/L Potassium 5.1 (3.5-5.1) meq/L Chloride 105 (98-107) meq/L Carbon Dioxide 28.1 (21.0-32.0) meq/L Anion Gap 5 (5-15) meq/L BUN 14 (7-18) mg/dL Creatinine 0.32 L (0.50-1.00) mg/dL Estimated GFR Greater than 89 (>89) mL/min POC Glucose (68-110) mg/dl Random Glucose 110 H (74-106) mg/dL Lactic Acid (0.4-2.0) mmol/L Calcium 8.4 L (8.5-10.1) mg/dL Total Bilirubin 0.3 (0.2-1.0) mg/dL AST 27 (15-37) U/L ALT 15 (10-53) U/L Alkaline Phosphatase 105 (45-117) U/L Total Protein 6.5 (6.4-8.2) g/dL Albumin 2.8 L (3.4-5.0) g/dL Urine Color (Yellw/Straw) Urine Clarity (Clear) Urine pH (5.0-8.5) Ur Specific [place] (1.002-1.035) Urine Protein (Neg-Trace) mg/dL Urine Glucose (UA) (Negative) mg/dL Urine Ketones (Negative) mg/dL Urine Occult Blood (Negative) Urine Nitrate (Negative) Urine Bilirubin (Negative) Urine Urobilinogen (Less than 2) mg/dL Ur Leukocyte Esterase (Negative) Urine RBC (0-3) /hpf Urine WBC (0-5) /hpf Urine Mucus (Occasional) /lpf Micro UA Comment Urine Culture Comments Phenytoin 7.2 L (10.0-20.0) mcg/mL Valproic Acid (50-100) mcg/mL 02/02/18 02/02/18 02/02/18 Range/Units 00:35 00:50 13:20 WBC (4.0-11.0) th/mm3 RBC (4.00-5.30) mil/mm3 Hgb (11.6-15.3) gm/dL Hct (35.0-46.0) % MCV (80.0-100.0) fL MCH (27.0-34.0) pg MCHC (32.0-36.0) % RDW (11.6-17.2) % Plt Count (150-450) th/mm3 MPV (7.0-11.0) fL Prelim Diff (Auto) Neut % (Auto) (16.0-70.0) % Lymph % (Auto) (9.0-44.0) % Moore % (Auto) (0.0-8.0) % Eos % (Auto) (0.0-4.0) % Baso % (Auto) (0.0-2.0) % Neut # (Auto) (1.8-7.7) th/mm3 Lymph # (Auto) (1.0-4.8) th/mm3 Moore # (Auto) (0.0-0.9) th/mm3 Eos # (Auto) (0.0-0.4) th/mm3 Baso # (Auto) (0.0-0.2) th/mm3 WBC Differential Diff Scan Differential Comment Platelet Estimate (Normal) Platelet Morphology (Normal) Acanthocytes (Spur) (None) Sodium (136-145) meq/L Potassium (3.5-5.1) meq/L Chloride (98-107) meq/L Carbon Dioxide (21.0-32.0) meq/L Anion Gap (5-15) meq/L BUN (7-18) mg/dL Creatinine (0.50-1.00) mg/dL Estimated GFR (>89) mL/min POC Glucose (68-110) mg/dl Random Glucose (74-106) mg/dL Lactic Acid 1.2 (0.4-2.0) mmol/L Calcium (8.5-10.1) mg/dL Total Bilirubin (0.2-1.0) mg/dL AST (15-37) U/L ALT (10-53) U/L Alkaline Phosphatase (45-117) U/L Total Protein (6.4-8.2) g/dL Albumin (3.4-5.0) g/dL Urine Color Yellow (Yellw/Straw) Urine Clarity Clear (Clear) Urine pH 6.0 (5.0-8.5) Ur Specific [place] 1.009 (1.002-1.035) Urine Protein Negative (Neg-Trace) mg/dL Urine Glucose (UA) Negative (Negative) mg/dL Urine Ketones Negative (Negative) mg/dL Urine Occult Blood Negative (Negative) Urine Nitrate Negative (Negative) Urine Bilirubin Negative (Negative) Urine Urobilinogen Less than 2 (Less than 2) mg/dL Ur Leukocyte Esterase Negative (Negative) Urine RBC 1 (0-3) /hpf Urine WBC 1 (0-5) /hpf Urine Mucus Few H (Occasional) /lpf Micro UA Comment Cath-culture not ind Urine Culture Comments Cath-cult not ind Phenytoin (10.0-20.0) mcg/mL Valproic Acid 29 L (50-100) mcg/mL 02/02/18 02/03/18 02/03/18 Range/Units 13:20 09:57 11:52 WBC (4.0-11.0) th/mm3 RBC (4.00-5.30) mil/mm3 Hgb (11.6-15.3) gm/dL Hct (35.0-46.0) % MCV (80.0-100.0) fL MCH (27.0-34.0) pg MCHC (32.0-36.0) % RDW (11.6-17.2) % Plt Count (150-450) th/mm3 MPV (7.0-11.0) fL Prelim Diff (Auto) Neut % (Auto) (16.0-70.0) % Lymph % (Auto) (9.0-44.0) % Moore % (Auto) (0.0-8.0) % Eos % (Auto) (0.0-4.0) % Baso % (Auto) (0.0-2.0) % Neut # (Auto) (1.8-7.7) th/mm3 Lymph # (Auto) (1.0-4.8) th/mm3 Moore # (Auto) (0.0-0.9) th/mm3 Eos # (Auto) (0.0-0.4) th/mm3 Baso # (Auto) (0.0-0.2) th/mm3 WBC Differential Diff Scan Differential Comment Platelet Estimate (Normal) Platelet Morphology (Normal) Acanthocytes (Spur) (None) Sodium 139 (136-145) meq/L Potassium 4.1 D (3.5-5.1) meq/L Chloride 106 (98-107) meq/L Carbon Dioxide 22.0 (21.0-32.0) meq/L Anion Gap 11 (5-15) meq/L BUN 6 L (7-18) mg/dL Creatinine 0.38 L (0.50-1.00) mg/dL Estimated GFR Greater than 89 (>89) mL/min POC Glucose 114 H (68-110) mg/dl Random Glucose 78 (74-106) mg/dL Lactic Acid (0.4-2.0) mmol/L Calcium 8.5 (8.5-10.1) mg/dL Total Bilirubin 0.5 (0.2-1.0) mg/dL AST 26 (15-37) U/L ALT 16 (10-53) U/L Alkaline Phosphatase 137 H (45-117) U/L Total Protein 7.5 D (6.4-8.2) g/dL Albumin 3.2 L (3.4-5.0) g/dL Urine Color (Yellw/Straw) Urine Clarity (Clear) Urine pH (5.0-8.5) Ur Specific [place] (1.002-1.035) Urine Protein (Neg-Trace) mg/dL Urine Glucose (UA) (Negative) mg/dL Urine Ketones (Negative) mg/dL Urine Occult Blood (Negative) Urine Nitrate (Negative) Urine Bilirubin (Negative) Urine Urobilinogen (Less than 2) mg/dL Ur Leukocyte Esterase (Negative) Urine RBC (0-3) /hpf Urine WBC (0-5) /hpf Urine Mucus (Occasional) /lpf Micro UA Comment Urine Culture Comments Phenytoin 5.6 L (10.0-20.0) mcg/mL Valproic Acid (50-100) mcg/mL 02/03/18 02/03/18 Range/Units 11:52 17:59 WBC 7.0 (4.0-11.0) th/mm3 RBC 4.59 (4.00-5.30) mil/mm3 Hgb 14.3 (11.6-15.3) gm/dL Hct 43.3 (35.0-46.0) % MCV 94.4 (80.0-100.0) fL MCH 31.1 (27.0-34.0) pg MCHC 32.9 (32.0-36.0) % RDW 14.8 (11.6-17.2) % Plt Count 108 L D (150-450) th/mm3 MPV 8.7 (7.0-11.0) fL Prelim Diff (Auto) Slide review pending Neut % (Auto) 75.4 H (16.0-70.0) % Lymph % (Auto) 18.0 (9.0-44.0) % Moore % (Auto) 6.0 (0.0-8.0) % Eos % (Auto) 0.1 (0.0-4.0) % Baso % (Auto) 0.5 (0.0-2.0) % Neut # (Auto) 5.3 (1.8-7.7) th/mm3 Lymph # (Auto) 1.3 (1.0-4.8) th/mm3 Moore # (Auto) 0.4 (0.0-0.9) th/mm3 Eos # (Auto) 0.0 (0.0-0.4) th/mm3 Baso # (Auto) 0.0 (0.0-0.2) th/mm3 WBC Differential . Diff Scan Auto diff confirmed Differential Comment . Platelet Estimate Low L (Normal) Platelet Morphology Normal (Normal) Acanthocytes (Spur) Occ H (None) Sodium (136-145) meq/L Potassium (3.5-5.1) meq/L Chloride (98-107) meq/L Carbon Dioxide (21.0-32.0) meq/L Anion Gap (5-15) meq/L BUN (7-18) mg/dL Creatinine (0.50-1.00) mg/dL Estimated GFR (>89) mL/min POC Glucose (68-110) mg/dl Random Glucose (74-106) mg/dL Lactic Acid (0.4-2.0) mmol/L Calcium (8.5-10.1) mg/dL Total Bilirubin (0.2-1.0) mg/dL AST (15-37) U/L ALT (10-53) U/L Alkaline Phosphatase (45-117) U/L Total Protein (6.4-8.2) g/dL Albumin (3.4-5.0) g/dL Urine Color (Yellw/Straw) Urine Clarity (Clear) Urine pH (5.0-8.5) Ur Specific [place] (1.002-1.035) Urine Protein (Neg-Trace) mg/dL Urine Glucose (UA) (Negative) mg/dL Urine Ketones (Negative) mg/dL Urine Occult Blood (Negative) Urine Nitrate (Negative) Urine Bilirubin (Negative) Urine Urobilinogen (Less than 2) mg/dL Ur Leukocyte Esterase (Negative) Urine RBC (0-3) /hpf Urine WBC (0-5) /hpf Urine Mucus (Occasional) /lpf Micro UA Comment Urine Culture Comments Phenytoin 8.8 L (10.0-20.0) mcg/mL Valproic Acid (50-100) mcg/mL Imaging Data Radiologist's impression: Chest X-Ray 02/02/18 00:18 CONCLUSION: 1. Right lung parenchymal opacity. May represent scarring/chronic lung disease versus atelectasis or mild consolidation. 2. Moderate severity cardiac silhouette enlargement. Head CT 02/02/18 04:47 CONCLUSION: 1. Chronic postsurgical findings and right-sided parietal ventricular shunt catheter. 2. Chronic periventricular white matter hypodensity and left frontal lobe encephalomalacia. 3. No acute intracranial findings. . Chest CT 02/02/18 04:51 CONCLUSION: 1. Bilateral lower lobe atelectasis and bronchiectasis unchanged. Mild patchy atelectasis in the upper to mid lung zones. 2. Triangular nodular density in the right lower lobe unchanged from October 2017 CT abdomen and pelvis. Recommend six-month follow-up noncontrast chest CT. 3. Small right pleural effusion unchanged. 4. Coronary artery calcification. Abdomen X-Ray 02/03/18 00:00 CONCLUSION: Dobbhoff catheter tip in the left hypogastric region, probably distal stomach. Discharge Plan Discharge Disposition Patient Disposition: 30 Still Patient Physicians Team ED Provider: Ruben Angelo Primary Care Provider: Primary Care Jl,Hoa Attending Provider: London Asencio Other Providers: Vikash Ortega ; Quinton Shaw Status ED Status: Left Department Discharge Information Discharge Date/Time: 02/02/18 08:12
--- NOTE | 2018-02-02 00:56 | XR ---
EXAM DATE: 02/02/2018 12:52 AM EDT AGE/SEX: 77 years / Female INDICATIONS: Short of breath and fever. CLINICAL DATA: This is the patient's initial encounter. Patient reports that signs and symptoms have been present for 1 day and indicates a pain score of Nonresponsive. MEDICAL/SURGICAL HISTORY: . Seizures. Hypertension. Stroke . Shunt COMPARISON: No prior exams available for comparison. FINDINGS: Single AP view of the chest. Decreased volume of the right lung with linear and hazy opacity in the r ight lung. Left lung clear. Moderate cardiac silhouette enlargement. Moderate right convex thoracic s coliosis. No evidence of pleural effusion or pneumothorax. CONCLUSION: 1. Right lung parenchymal opacity. May represent scarring/chronic lung disease versus atelectasis or mild consolidation. 2. Moderate severity cardiac silhouette enlargement. Electronically signed by: Miah Garza MD 02/02/2018 12:55 AM EDT
[2018-02-02 01:00] LABS: Baso % (Auto) 0.9 % (0.0-2.0); Eos # (Auto) 0.1 th/mm3 (0.0-0.4); Eos % (Auto) 1.4 % (0.0-4.0); Hematocrit 39.5 % (35.0-46.0); Hemoglobin 13.2 gm/dL (11.6-15.3); Lymph # (Auto) 1.6 th/mm3 (1.0-4.8); Lymph % (Auto) 32.2 % (9.0-44.0); Mean Corpuscular HGB Conc 33.5 % (32.0-36.0); Mean Corpuscular Hemoglobin 30.9 pg (27.0-34.0); Mean Corpuscular Volume 92.2 fL (80.0-100.0); Mean Platelet Volume 8.8 fL (7.0-11.0); Mono # (Auto) 0.7 th/mm3 (0.0-0.9); Mono % (Auto) 13.9 % (0.0-8.0); Neut # (Auto) 2.5 th/mm3 (1.8-7.7); Neut % (Auto) 51.6 % (16.0-70.0); Platelet Count 320 th/mm3 (150-450); Red Blood Count 4.29 mil/mm3 (4.00-5.30); Red Cell Distribution Width 14.6 % (11.6-17.2); White Blood Count 4.8 th/mm3 (4.0-11.0)
[2018-02-02 01:03] LABS: Bilirubin,Urine Negative (Negative); Clarity,Urine Clear (Clear); Color,Urine Yellow (Yellw/Straw); Glucose,Urine (UA) Negative (Negative); Leukocyte Esterase,Urine Negative (Negative); Mucus,Urine Few /lpf (Occasional); Nitrite,Urine Negative (Negative); Specific Gravity,Urine 1.009 (1.002-1.035)
[2018-02-02 01:23] LABS: Alkaline Phosphatase 105 U/L (45-117); Total Protein 6.5 g/dL (6.4-8.2)
[2018-02-02 01:26] LABS: Alanine Aminotransferase 15 U/L (10-53); Albumin 2.8 g/dL (3.4-5.0); Anion Gap 5 meq/L (5-15); Aspartate Aminotransferase 27 U/L (15-37); Blood Urea Nitrogen 14 mg/dL (7-18); Calcium 8.4 mg/dL (8.5-10.1); Carbon Dioxide 28.1 meq/L (21.0-32.0); Chloride 105 meq/L (98-107); Glomerular Filtration Rate Greater Than 89 mL/min (>89); Glucose,Random 110 mg/dL (74-106); Sodium 138 meq/L (136-145)
[2018-02-02 01:27] LABS: Potassium 5.1 meq/L (3.5-5.1)
[2018-02-02] MEDS ORDERED: Phenytoin Sodium 100 MG Capsule PO ONE (04:46)
--- NOTE | 2018-02-02 05:14 | CT ---
EXAM DATE: 02/02/2018 5:05 AM EDT AGE/SEX: 77 years / Female INDICATIONS: Seizures. CLINICAL DATA: This is the patient's initial encounter. Patient reports that signs and symptoms have been present for 1 day and indicates a pain score of Nonresponsive. MEDICAL/SURGICAL HISTORY: Cardiovascular disease. Chronic obstructive pulmonary disease. Hysterect litzy. [employer] shunt RADIATION DOSE: 56.35 CTDI (mGy) COMPARISON: [facility] – [place], CT BRAIN W/O CONTRAST, 01/27/2016. . TECHNIQUE: CT of the head without contrast. Using automated exposure control and adjustment of the mA and/or kV according to patient size, radiation dose was kept as low as reasonably achievable to ob tain optimal diagnostic quality images. DICOM format image data is available electronically for revi ew and comparison. FINDINGS: Cerebrum: Right parietal ventriculostomy catheter remains in place. Ventricles are unchanged in size and within normal limits for age. Chronic periventricular white matter hypodensity and left frontal l obe encephalomalacia. No evidence of midline shift, mass lesion, hemorrhage or acute infarction. No extraaxial fluid collections are seen. Posterior Fossa: The cerebellum and brainstem are intact. The 4th ventricle is midline. The cerebe llopontine angle is unremarkable. Extracranial: The visualized portion of the orbits is intact. Skull: Postsurgical findings of left frontal region again seen. CONCLUSION: 1. Chronic postsurgical findings and right-sided parietal ventricular shunt catheter. 2. Chronic periventricular white matter hypodensity and left frontal lobe encephalomalacia. 3. No acute intracranial findings. . Electronically signed by: Miah Garza MD 02/02/2018 5:13 AM EDT
--- NOTE | 2018-02-02 05:22 | CT ---
EXAM DATE: 02/02/2018 5:08 AM EDT AGE/SEX: 77 years / Female INDICATIONS: Evaluate for pneumonia. CLINICAL DATA: This is the patient's initial encounter. Patient reports that signs and symptoms have been present for 1 day and indicates a pain score of Nonresponsive. MEDICAL/SURGICAL HISTORY: Cerebrovascular disease. Chronic obstructive pulmonary disease. Hysterec abner. 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 . TECHNIQUE: Multiple contiguous axial images were obtained through the chest without contrast. Image s were obtained in suspended respiration using multiple row detector helical technique. Using automa nikita exposure control and adjustment of the mA and/or kV according to patient size, radiation dose was kept as low as reasonably achievable to obtain optimal diagnostic quality images. DICOM format imag e data is available electronically for review and comparison. FINDINGS: Lungs: Bilateral dependent lower lobe atelectasis. Mild patchy atelectasis in the mid to upper lung zones. Mild cylindrical bronchiectasis of the lower lobes. The lower lobe findings are unchanged from prior CT abdomen and pelvis of 10/15/2017. Triangular 9 mm nodular density in the right lower lung on image #47 is unchanged from the prior CT abdomen and pelvis study. A second similar nodular densities in the prior study is no longer seen. Mediastinum: Enlarged nodular left lobe of the thyroid. Diffuse aortic calcification. Aortic diamete r within normal limits. Coronary artery calcification noted. No enlarged lymph nodes. Trace pericardi al effusion. Pleurae: Small right pleural effusion unchanged. Axillae: Unremarkable. Bony Structures: Prominent degenerative findings of the thoracic spine. Prominent right convex thora cic scoliosis. Sclerotic focus in the proximal right humerus likely representing a lesion of low biol ogic activity such as an old enchondroma. Miscellaneous: Right lobe hepatic cyst unchanged. CONCLUSION: 1. Bilateral lower lobe atelectasis and bronchiectasis unchanged. Mild patchy atelectasis in the upp er to mid lung zones. 2. Triangular nodular density in the right lower lobe unchanged from October 2017 CT abdomen and pelvi s. Recommend six-month follow-up noncontrast chest CT. 3. Small right pleural effusion unchanged. 4. Coronary artery calcification. Electronically signed by: Miah Garza MD 02/02/2018 5:21 AM EDT
[2018-02-02] MEDS ORDERED: Bisacodyl 10 MG Supp RECTAL PRN (06:14)
[2018-02-02] MEDS: Sod Chloride 0.9% Inj 1,000 ML IV.CONT SCH ×2 (07:51→16:28)
[2018-02-02] MEDS ORDERED: Phenytoin Sodium 100 MG Capsule PO SCH ×2 (09:00→13:00)
[2018-02-02] MEDS ORDERED: PHENYTOIN 100 MG PO SCH (09:00)
[2018-02-02] MEDS: Senna/Docusate Sodium 8.6/50 MG Tablet PO SCH ×2 (09:23→20:52)
[2018-02-02] MEDS: Sertraline 100 MG Tablet PO SCH (09:23)
[2018-02-02] MEDS: Divalproex 500 MG DR Tablet PO SCH ×2 (09:23→20:51)
--- NOTE | 2018-02-02 10:59 | P.CONNEU ---
History of Present Illness Service: Neurology Primary Care Provider: No Primary Care Physician History of Present Illness: 77-year-old female with history of stroke, brain tumor CUSTOMER QUALITY SPECIALIST shunt wheelchair- bound lives in a [place] [facility] admitted for recurrent seizure activity. Given Versed. Patient unable to give any meaningful history medical chart reviewed. Right CUSTOMER QUALITY SPECIALIST shunt, left frontal encephalomalacia per CT scan no acute lesion. Review of Systems All other systems reviewed negative except as stated in HPI PMFSH - History History Provided By: Medical Record, Insulation Worker Interior Surface / EMT - Medical History Medical History: Medical History (Last Reviewed 01/24/18 @ 09:59 by Silvina Duffy) Anxiety Brain tumor (benign) COPD (chronic obstructive pulmonary disease) Calcium deficiency Candidiasis of skin and nail Cerebral infarct Chronic pain Constipation Gout Hyperlipemia Hypothyroidism Major depressive disorder Neuromuscular dysfunction of bladder Pneumonia Seizures Ulcer of esophagus with bleeding Urinary retention Vitamin D deficiency - Surgical History Surgical History: Surgical History (Last Reviewed 01/24/18 @ 09:59 by Silvina Duffy) H/O brain surgery H/O hysterectomy for benign disease History of tonsillectomy - Tobacco History Second Hand Smoke Exposure: No Smoking Status: Never smoker - Alcohol History How Often Do You Have a Drink Containing Alcohol: Never - Substance Use History Substance History: No History of Abuse - Travel History Recent Travel in the [place] Within the Last 8 Weeks: No Recent Travel Out of the Country Within the Last 8 Weeks: No - Immunization History Tetanus Immunization: Unsure Hx Influenza Vaccine This Season: Unable to Assess Medications and Allergies Active Medications: Active Medications Al Hydroxide/Mg Hydroxide (Milk Of Magnesia Liq) 30 ml PO Q12H PRN PRN Reason: Mild Constipation Bisacodyl (Dulcolax Supp) 10 mg RECTAL DAILY PRN PRN Reason: SEVERE CONSITIPATION Divalproex Sodium (Depakote Dr) 500 mg PO BID [facility] Last Admin: 02/02/18 09:23 Dose: Not Given Sodium Chloride (Ns Inj) 1,000 mls @ 100 mls/hr IV.CONT .Q10H [facility] Last Admin: 02/02/18 07:51 Dose: 100 mls/hr Lactulose (Lactulose Liq) 30 ml PO DAILY PRN PRN Reason: SEVERE CONSITIPATION Lorazepam (Ativan Inj) 1 mg IV.PUSH Q5M PRN PRN Reason: SEIZURE Pantoprazole Sodium (Protonix) 40 mg PO DAILY [facility] Last Admin: 02/02/18 09:23 Dose: Not Given Phenytoin Sodium (Dilantin) 100 mg PO TID [facility] Last Admin: 02/02/18 09:23 Dose: Not Given Senna/Docusate Sodium (Deena-Colace) 1 tab PO BID [facility] Last Admin: 02/02/18 09:23 Dose: Not Given Sennosides (Senokot) 17.2 mg PO Q12H PRN PRN Reason: Moderate Constipation Sertraline HCl (Zoloft) 100 mg PO DAILY [facility] Last Admin: 02/02/18 09:23 Dose: Not Given Tizanidine HCl (Zanaflex) 2 mg PO TID PRN PRN Reason: SPASM Allergies Allergy/AdvReac Type Severity Reaction Status Date / Time milk Allergy Unknown LACTOSE Verified 02/01/18 23:48 INTOLERANT chocolate flavor AdvReac Unknown "MAKES ME Verified 02/01/18 23:48 HYPER" MRI PRECAUTION AdvReac Severe SHUNT/ Uncoded 01/24/18 09:45 METAL CLIP IN BRAIN PER DR CLINE KD 06/15/08 *MDRO Multi-Drug Resistant AdvReac Unknown UNKNOWN Uncoded 01/24/18 09:45 Organism Home Medications Medication Instructions Recorded Confirmed Type Lactobacillus rhamnosus GG 1 cap PO DAILY 01/22/18 02/02/18 History [Culturelle] Multi Vitamin 1 tab PO DAILY 01/22/18 02/02/18 History acetaminophen [Tylenol] 650 mg PO Q4H PRN 01/22/18 02/02/18 History ascorbic acid (vitamin C) [Vitamin 500 mg PO BID 01/22/18 02/02/18 History C] aspirin [Aspirin Low Dose] 81 mg PO DAILY 01/22/18 02/02/18 History atorvastatin 10 mg PO DAILY 01/22/18 02/02/18 History bisacodyl [Dulcolax (bisacodyl)] 1 suppositor [place] DAILY PRN 01/22/18 02/02/18 History divalproex [Depakote] 500 mg PO BID 01/22/18 02/02/18 History hydrocodone-acetaminophen 1 tab PO Q4-6H PRN 01/22/18 02/02/18 History ipratropium-albuterol 3 ml INHALATION QID 01/22/18 02/02/18 History levothyroxine 25 mcg PO DAILY 01/22/18 02/02/18 History magnesium hydroxide [Milk of 30 ml PO DAILY PRN 01/22/18 02/02/18 History Magnesia] ondansetron HCl [Zofran] 4 mg PO Q6-8H PRN 01/22/18 02/02/18 History pantoprazole 40 mg PO DAILY 01/22/18 02/02/18 History phenytoin 100 mg PO TID 01/22/18 02/02/18 History sennosides [Senna Laxative] 8.6 mg PO DAILY 01/22/18 02/02/18 History sertraline 100 mg PO DAILY 01/22/18 02/02/18 History tizanidine 2 mg PO TID PRN 01/22/18 02/02/18 History acetylcysteine 3 ml INHALATION BID 01/24/18 02/02/18 History cholestyramine (with sugar) 4 g PO TID 01/24/18 02/02/18 History levofloxacin 500 mg PO DAILY 01/24/18 02/02/18 History Exam Vital signs: Vital Signs 02/01/18 23:51 02/02/18 00:22 02/02/18 00:23 Temperature 97.7 F Pulse Rate 79 75 Respiratory Rate 14 Blood Pressure 97/55 L Pulse Oximetry 98 98 02/02/18 01:15 02/02/18 03:28 02/02/18 05:22 Temperature Pulse Rate 74 74 79 Respiratory Rate 20 17 20 Blood Pressure 129/59 L 132/59 L 175/69 H Pulse Oximetry 100 98 98 02/02/18 06:25 02/02/18 07:35 02/02/18 08:00 Temperature 98.5 F Pulse Rate 75 78 84 Respiratory Rate 17 23 Blood Pressure 161/85 H 143/72 H 132/67 Pulse Oximetry 99 99 97 02/02/18 09:57 Temperature Pulse Rate 83 Respiratory Rate Blood Pressure Pulse Oximetry 97 Intake & Output 02/01/18 02/02/18 02/02/18 18:59 06:59 18:59 Output Total 750 / 750 Balance -750 / -750 Weight 45.359 kg Output: Urine Amount (Catheter) 750 / 750 Indwelling Urethral Catheter 750 / 750 Narrative: Awake alert nonverbal not following left head tilt no gaze deviation positive blink to threat pupils difficult to examine due to resistance from patient, right upper extremity spastic paresis localized with left occasional left facial twitch lower extremities and contraction boots with mild atrophy slight withdrawal plantarflex response - Constitutional no acute distress - Routine HEENT Exam Head: Present: normocephalic Eye: Present: EOMI - Routine Abdominal Exam Present: soft Results - Labs CBC & Chem 7: 02/02/18 00:20 02/02/18 00:20 Labs: Laboratory Results - last 24 hr 02/02/18 02/02/18 02/02/18 00:20 00:20 00:20 WBC 4.8 RBC 4.29 Hgb 13.2 Hct 39.5 MCV 92.2 MCH 30.9 MCHC 33.5 RDW 14.6 Plt Count 320 MPV 8.8 Neut % (Auto) 51.6 Lymph % (Auto) 32.2 Cascade % (Auto) 13.9 H Eos % (Auto) 1.4 Baso % (Auto) 0.9 Neut # (Auto) 2.5 Lymph # (Auto) 1.6 Cascade # (Auto) 0.7 Eos # (Auto) 0.1 Baso # (Auto) 0.0 WBC Differential . Differential Comment Auto diff final Sodium 138 Potassium 5.1 Chloride 105 Carbon Dioxide 28.1 Anion Gap 5 BUN 14 Creatinine 0.32 L Estimated GFR Greater than 89 Random Glucose 110 H Lactic Acid Calcium 8.4 L Total Bilirubin 0.3 AST 27 ALT 15 Alkaline Phosphatase 105 Total Protein 6.5 Albumin 2.8 L Urine Color Urine Clarity Urine pH Ur Specific [place] Urine Protein Urine Glucose (UA) Urine Ketones Urine Occult Blood Urine Nitrate Urine Bilirubin Urine Urobilinogen Ur Leukocyte Esterase Urine RBC Urine WBC Urine Mucus Micro UA Comment Urine Culture Comments Phenytoin 7.2 L 02/02/18 02/02/18 00:35 00:50 WBC RBC Hgb Hct MCV MCH MCHC RDW Plt Count MPV Neut % (Auto) Lymph % (Auto) Cascade % (Auto) Eos % (Auto) Baso % (Auto) Neut # (Auto) Lymph # (Auto) Cascade # (Auto) Eos # (Auto) Baso # (Auto) WBC Differential Differential Comment Sodium Potassium Chloride Carbon Dioxide Anion Gap BUN Creatinine Estimated GFR Random Glucose Lactic Acid 1.2 Calcium Total Bilirubin AST ALT Alkaline Phosphatase Total Protein Albumin Urine Color Yellow Urine Clarity Clear Urine pH 6.0 Ur Specific [place] 1.009 Urine Protein Negative Urine Glucose (UA) Negative Urine Ketones Negative Urine Occult Blood Negative Urine Nitrate Negative Urine Bilirubin Negative Urine Urobilinogen Less than 2 Ur Leukocyte Esterase Negative Urine RBC 1 Urine WBC 1 Urine Mucus Few H Micro UA Comment Cath-culture not ind Urine Culture Comments Cath-cult not ind Phenytoin - Imaging Impressions Chest X-Ray 02/02/18 00:18 CONCLUSION: 1. Right lung parenchymal opacity. May represent scarring/chronic lung disease versus atelectasis or mild consolidation. 2. Moderate severity cardiac silhouette enlargement. Head CT 02/02/18 04:47 CONCLUSION: 1. Chronic postsurgical findings and right-sided parietal ventricular shunt catheter. 2. Chronic periventricular white matter hypodensity and left frontal lobe encephalomalacia. 3. No acute intracranial findings. . Chest CT 02/02/18 04:51 CONCLUSION: 1. Bilateral lower lobe atelectasis and bronchiectasis unchanged. Mild patchy atelectasis in the upper to mid lung zones. 2. Triangular nodular density in the right lower lobe unchanged from October 2017 CT abdomen and pelvis. Recommend six-month follow-up noncontrast chest CT. 3. Small right pleural effusion unchanged. 4. Coronary artery calcification. Review/Management - Diagnosis (1) Chronic ischemic left MCA stroke Code(s): I69.30 - Unspecified sequelae of cerebral infarction Status: Acute Current Visit: Yes (2) CUSTOMER QUALITY SPECIALIST (ventriculoperitoneal) shunt status Code(s): Z98.2 - Presence of cerebrospinal fluid drainage device Status: Acute Current Visit: Yes (3) Seizure Code(s): R56.9 - Unspecified convulsions Status: Acute Current Visit: Yes (4) Bed confinement status Code(s): Z74.01 - Bed confinement status Status: Acute Current Visit: Yes - Review/Management Plan: Breakthrough seizure patient is bedbound with apparent underlying dementia Subtherapeutic Dilantin level Patient is afebrile without leukocytosis Recommendations EEG MRI brain if feasible Continue Dilantin and Depakote Follow levels Discharge planning once above complete no acute seizure activity on EEG
--- NOTE | 2018-02-02 15:57 | P.HPIM ---
History of Present Illness Primary Care Physician: No Primary Care Physician History of Present Illness: 77-year-old female with a history of seizure disorder, brain tumor resection in 2002 who presents from senior care facility secondary to seizure. She is currently in a postictal state is awake, appears to make good eye contact can shake her head to deny pain, however does not provide any history. History is obtained from ER documentation, chart review and discussion with nursing. Review of Systems Attempted but unable to obtain PMFSH - History History Provided By: Medical Record, Torch Straightener / EMT - Medical History Medical History: Medical History (Last Reviewed 01/24/18 @ 09:59 by Silvina Duffy) Anxiety Brain tumor (benign) COPD (chronic obstructive pulmonary disease) Calcium deficiency Candidiasis of skin and nail Cerebral infarct Chronic pain Constipation Gout Hyperlipemia Hypothyroidism Major depressive disorder Neuromuscular dysfunction of bladder Pneumonia Seizures Ulcer of esophagus with bleeding Urinary retention Vitamin D deficiency - Surgical History Surgical History: Surgical History (Last Reviewed 01/24/18 @ 09:59 by Silvina Duffy) H/O brain surgery H/O hysterectomy for benign disease History of tonsillectomy - Tobacco History Second Hand Smoke Exposure: No Smoking Status: Never smoker - Alcohol History How Often Do You Have a Drink Containing Alcohol: Never - Substance Use History Substance History: No History of Abuse - Travel History Recent Travel in the [place] Within the Last 8 Weeks: No Recent Travel Out of the Country Within the Last 8 Weeks: No - Immunization History Tetanus Immunization: Unsure Hx Influenza Vaccine This Season: Unable to Assess Medications and Allergies Active Medications: Active Medications Acetylcysteine (Mucomyst 20% Neb) 3 ml NEB BID MICK Al Hydroxide/Mg Hydroxide (Milk Of [place]) 30 ml PO Q12H PRN PRN Reason: Mild Constipation Aspirin (Ecotrin) 81 mg PO DAILY MICK Atorvastatin Calcium (Lipitor) 10 mg PO DAILY MICK Bisacodyl (Dulcolax Supp) 10 mg RECTAL DAILY PRN PRN Reason: SEVERE CONSITIPATION Divalproex Sodium (Depakote Dr) 500 mg PO BID [facility] Last Admin: 02/02/18 09:23 Dose: Not Given Sodium Chloride (Ns Inj) 1,000 mls @ 100 mls/hr IV.CONT .Q10H [facility] Last Admin: 02/02/18 07:51 Dose: 100 mls/hr Phenytoin Sodium 150 mg/ (Sodium Chloride) 103 mls @ 240 mls/hr IV.SIG Q8H ONE Stop: 02/02/18 17:25 Azithromycin 250 mg/ Sodium (Chloride) 250 mls @ 250 mls/hr IV.SIG Q24H MICK Ampicillin Sodium/Sulbactam (Sodium 3 gm/ Sodium Chloride) 100 mls @ 200 mls/ hr IV.SIG Q6H MICK Lactulose (Lactulose Liq) 30 ml PO DAILY PRN PRN Reason: SEVERE CONSITIPATION Levothyroxine Sodium (Synthroid) 25 mcg PO DAILY [facility] Lorazepam (Ativan Inj) 1 mg IV.PUSH Q5M PRN PRN Reason: SEIZURE Pantoprazole Sodium (Protonix) 40 mg PO DAILY [facility] Last Admin: 02/02/18 09:23 Dose: Not Given Phenytoin Sodium (Dilantin) 130 mg PO TID [facility] Last Admin: 02/02/18 13:43 Dose: Not Given Senna/Docusate Sodium (Deena-Colace) 1 tab PO BID [facility] Last Admin: 02/02/18 09:23 Dose: Not Given Sennosides (Senokot) 17.2 mg PO Q12H PRN PRN Reason: Moderate Constipation Sertraline HCl (Zoloft) 100 mg PO DAILY [facility] Last Admin: 02/02/18 09:23 Dose: Not Given Tizanidine HCl (Zanaflex) 2 mg PO TID PRN PRN Reason: SPASM Allergies Allergy/AdvReac Type Severity Reaction Status Date / Time milk Allergy Unknown LACTOSE Verified 02/01/18 23:48 INTOLERANT chocolate flavor AdvReac Unknown "MAKES ME Verified 02/01/18 23:48 HYPER" MRI PRECAUTION AdvReac Severe SHUNT/ Uncoded 01/24/18 09:45 METAL CLIP IN BRAIN PER DR MARLYN JUÁREZ 06/15/08 *MDRO Multi-Drug Resistant AdvReac Unknown UNKNOWN Uncoded 01/24/18 09:45 Organism Home Medications Medication Instructions Recorded Confirmed Type Lactobacillus rhamnosus GG 1 cap PO DAILY 01/22/18 02/02/18 History [Culturelle] Multi Vitamin 1 tab PO DAILY 01/22/18 02/02/18 History acetaminophen [Tylenol] 650 mg PO Q4H PRN 01/22/18 02/02/18 History ascorbic acid (vitamin C) [Vitamin 500 mg PO BID 01/22/18 02/02/18 History C] aspirin [Aspirin Low Dose] 81 mg PO DAILY 01/22/18 02/02/18 History atorvastatin 10 mg PO DAILY 01/22/18 02/02/18 History bisacodyl [Dulcolax (bisacodyl)] 1 suppositor OR DAILY PRN 01/22/18 02/02/18 History divalproex [Depakote] 500 mg PO BID 01/22/18 02/02/18 History hydrocodone-acetaminophen 1 tab PO Q4-6H PRN 01/22/18 02/02/18 History ipratropium-albuterol 3 ml INHALATION QID 01/22/18 02/02/18 History levothyroxine 25 mcg PO DAILY 01/22/18 02/02/18 History magnesium hydroxide [Milk of 30 ml PO DAILY PRN 01/22/18 02/02/18 History Magnesia] ondansetron HCl [Zofran] 4 mg PO Q6-8H PRN 01/22/18 02/02/18 History pantoprazole 40 mg PO DAILY 01/22/18 02/02/18 History phenytoin 100 mg PO TID 01/22/18 02/02/18 History sennosides [Senna Laxative] 8.6 mg PO DAILY 01/22/18 02/02/18 History sertraline 100 mg PO DAILY 01/22/18 02/02/18 History tizanidine 2 mg PO TID PRN 01/22/18 02/02/18 History acetylcysteine 3 ml INHALATION BID 01/24/18 02/02/18 History cholestyramine (with sugar) 4 g PO TID 01/24/18 02/02/18 History levofloxacin 500 mg PO DAILY 01/24/18 02/02/18 History Exam Vital signs: Vital Signs 02/01/18 23:51 02/02/18 00:22 02/02/18 00:23 Temperature 97.7 F Pulse Rate 79 75 Respiratory Rate 14 Blood Pressure 97/55 L Pulse Oximetry 98 98 02/02/18 01:15 02/02/18 03:28 02/02/18 05:22 Temperature Pulse Rate 74 74 79 Respiratory Rate 20 17 20 Blood Pressure 129/59 L 132/59 L 175/69 H Pulse Oximetry 100 98 98 02/02/18 06:25 02/02/18 07:35 02/02/18 08:00 Temperature 98.5 F Pulse Rate 75 78 84 Respiratory Rate 17 23 Blood Pressure 161/85 H 143/72 H 132/67 Pulse Oximetry 99 99 97 02/02/18 09:57 02/02/18 12:00 Temperature 98.5 F Pulse Rate 83 84 Respiratory Rate 16 Blood Pressure 123/58 L Pulse Oximetry 97 96 Intake & Output 02/01/18 02/02/18 02/02/18 18:59 06:59 18:59 Output Total 750 / 750 Balance -750 / -750 Weight 45.359 kg 50.7 kg Output: Urine Amount (Catheter) 750 / 750 Indwelling Urethral Catheter 750 / 750 Other: Weight On Admission 50.7 kg Narrative: GENERAL: Patient lying in bed. Appears comfortable. Not able to speak, slight twitching of right sided facial muscles. Makes good eye contact. SKIN: Warm and dry. HEAD: Atraumatic. Normocephalic. EYES: Pupils equal and round. No scleral icterus. No injection or drainage. ENT: No nasal bleeding or discharge. Mucous membranes pink and moist. NECK: Trachea midline. No JVD. CARDIOVASCULAR: Regular rate and rhythm. RESPIRATORY: No accessory muscle use. Clear to auscultation. Breath sounds equal bilaterally. GASTROINTESTINAL: Abdomen soft, non-tender, nondistended. Hepatic and splenic margins not palpable. MUSCULOSKELETAL: Extremities without clubbing, cyanosis, or edema. No obvious deformities. NEUROLOGICAL: Awake and alert. Nursing of right-sided facial muscles. Motor grossly within normal limits. Does not obey commands apart from taking a deep breath. PSYCHIATRIC: Appropriate mood and affect; insight and judgment normal. Results - Labs CBC & Chem 7: 02/02/18 00:20 02/02/18 00:20 Labs: Short CBC 02/02/18 Range/Units 00:20 WBC 4.8 (4.0-11.0) th/mm3 Hgb 13.2 (11.6-15.3) gm/dL Hct 39.5 (35.0-46.0) % Plt Count 320 (150-450) th/mm3 BMP 02/02/18 00:20 Sodium 138 Potassium 5.1 Chloride 105 Carbon Dioxide 28.1 BUN 14 Creatinine 0.32 L Calcium 8.4 L Liver Function 02/02/18 Range/Units 00:20 Total Bilirubin 0.3 (0.2-1.0) mg/dL AST 27 (15-37) U/L ALT 15 (10-53) U/L Alkaline Phosphatase 105 (45-117) U/L Albumin 2.8 L (3.4-5.0) g/dL Urine 02/02/18 Range/Units 00:35 Urine Color Yellow (Yellw/Straw) Urine Clarity Clear (Clear) Urine pH 6.0 (5.0-8.5) Ur Specific [place] 1.009 (1.002-1.035) Urine Protein Negative (Neg-Trace) mg/dL Urine Glucose (UA) Negative (Negative) mg/dL - Imaging Impressions Chest X-Ray 02/02/18 00:18 CONCLUSION: 1. Right lung parenchymal opacity. May represent scarring/chronic lung disease versus atelectasis or mild consolidation. 2. Moderate severity cardiac silhouette enlargement. Head CT 02/02/18 04:47 CONCLUSION: 1. Chronic postsurgical findings and right-sided parietal ventricular shunt catheter. 2. Chronic periventricular white matter hypodensity and left frontal lobe encephalomalacia. 3. No acute intracranial findings. . Chest CT 02/02/18 04:51 CONCLUSION: 1. Bilateral lower lobe atelectasis and bronchiectasis unchanged. Mild patchy atelectasis in the upper to mid lung zones. 2. Triangular nodular density in the right lower lobe unchanged from October 2017 CT abdomen and pelvis. Recommend six-month follow-up noncontrast chest CT. 3. Small right pleural effusion unchanged. 4. Coronary artery calcification. Caprini VTE Risk Assessment Caprini VTE Risk Assessment: Moderate/High Risk (score >= 2) Caprini Risk Assessment Model: Point Value = 1 Point Value = 2 Point Value = 3 Point Value = 5 Age 41-60 Minor surgery BMI > 25 kg/m2 Swollen legs Varicose veins or History of unexplained or recurrent spontaneous Oral contraceptives or hormone replacement Sepsis (< 1 month) Serious lung disease, including pneumonia (< 1 month) Abnormal pulmonary function Acute myocardial infarction Congestive heart failure (< 1 month) History of inflammatory bowel disease Medical patient at bed rest Age 61-74 Arthroscopic surgery Major open surgery (> 45 min) Laparoscopic surgery (> 45 min) Malignancy Confined to bed (> 72 hours) Immobilizing plaster cast Central venous access Age >= 75 History of VTE Family history of VTE Factor V Leiden Prothrombin [id number] Lupus anticoagulant Anticardiolipin antibodies Elevated serum homocysteine Heparin-induced thrombocytopenia Other congenital or acquired thrombophilia Stroke (< 1 month) Elective arthroplasty Hip, pelvis, or leg fracture Acute spinal cord injury (< 1 month) Prophylaxis Regimen: Total Risk Factor Score Risk Level Prophylaxis Regimen 0-1 Low Early ambulation 2 Moderate Order ONE of the following: *Sequential Compression Device (SCD) *Heparin 5000 units SQ BID 3-4 Higher Order ONE of the following medications: *Heparin 5000 units SQ TID *Enoxaparin/Lovenox 40 mg SQ daily (WT < 150 kg, CrCl > 30 mL/min) *Enoxaparin/Lovenox 30 mg SQ daily (WT < 150 kg, CrCl > 10-29 mL/min) *Enoxaparin/Lovenox 30 mg SQ BID (WT < 150 kg, CrCl > 30 mL/min) AND/OR *Sequential Compression Device (SCD) 5 or more Highest Order ONE of the following medications: *Heparin 5000 units SQ TID (Preferred with Epidurals) *Enoxaparin/Lovenox 40 mg SQ daily (WT < 150 kg, CrCl > 30 mL/min) *Enoxaparin/Lovenox 30 mg SQ daily (WT < 150 kg, CrCl > 10-29 mL/min) *Enoxaparin/Lovenox 30 mg SQ BID (WT < 150 kg, CrCl > 30 mL/min) AND *Sequential Compression Device (SCD) Assessment and Plan - Plan //Seizure. /History of brain tumor. = Patient currently in postictal state. Workup ordered as per neurology. Appreciate assistance. EEG pending. = Swallow eval pending. = Follow up neurology recommendations and workup //Community-acquired pneumonia. //Versus aspiration pneumonia Chest x-ray with right lung parenchymal opacity. = We will start Unasyn for coverage of bacterial pneumonia/aspiration pneumonia for atypical. Avoid Levaquin due to seizure threshold //Hypothyroidism. Patient still in postictal state. Chronic. Continue home meds when tolerating p.o. //COPD. Not in exacerbation. Discharge Plannin stiff when cleared by neurology. H&P: Quality - VTE Deep Vein Thrombosis/Pulmonary Embolism Present on Admission: No
--- NOTE | 2018-02-02 16:20 | ECG ---
Date Performed: 02/02/2018 Time Performed: 00:52:07 PTAGE: 77 years EKG: Sinus rhythm WITH OCCASIONAL SUPRAVENTRICULAR PREMATURE COMPLEXES LEFT ANTERIOR FASCICULAR BLOCK ABNORMAL ECG Sin ce PREVIOUS TRACING , no significant change noted PREVIOUS TRACIN10/17/2017 05.46 DOCTOR: Aquilino Evans Interpretating Date/Time 02/02/2018 16:19:57
[2018-02-02] MEDS: Azithromycin Inj 250 MG in Sodium Chlor 0.9% Inj 250 ML IV.SIG SCH (16:52)
[2018-02-02] MEDS ORDERED: PHENYTOIN IV.SIG ONE (17:00)
[2018-02-02] MEDS ORDERED: SODIUM CHLOR 0.9% IV.SIG ONE (17:00)
[2018-02-02] MEDS: Ampicillin/Sulbactam Inj 3 GM in Sodium Chloride 0.9% Inj 100 ML IV.SIG SCH (20:04)
--- NOTE | 2018-02-02 20:06 | MG ---
cc: Vikash Ortega MD, Mandeep MD EEG NUMBER [id number] INDICATION: Left frontal sharp discharges phase reversal at F3. Background theta and delta activity 20-70 microvolts. Reduced driving with photic stimulation. Single lead EKG showing sinus rhythm. INTERPRETATION: Left frontal epileptic discharges. Clinical correlation. MD GLORIA Hubbard/ , 07:55 PM , 08:04 PM
[2018-02-02] MEDS: SODIUM CHLOR 0.9% IV.SIG SCH (21:10)
[2018-02-02] MEDS: PHENYTOIN IV.SIG SCH (21:10)
[2018-02-03] MEDS: Ampicillin/Sulbactam Inj 3 GM in Sodium Chloride 0.9% Inj 100 ML IV.SIG SCH ×5 (01:20→23:31)
[2018-02-03] MEDS: Sod Chloride 0.9% Inj 1,000 ML IV.CONT SCH ×2 (01:53→14:32)
[2018-02-03] MEDS: Divalproex 500 MG DR Tablet PO SCH (08:02)
[2018-02-03] MEDS: Sertraline 100 MG Tablet PO SCH (08:03)
[2018-02-03] MEDS: Senna/Docusate Sodium 8.6/50 MG Tablet PO SCH ×2 (08:03→22:40)
[2018-02-03] MEDS: PHENYTOIN IV.SIG SCH ×3 (09:58→19:48)
[2018-02-03] MEDS: SODIUM CHLOR 0.9% IV.SIG SCH ×3 (09:58→19:48)
--- NOTE | 2018-02-03 09:58 | P.PN ---
Subjective Interval history: Follow up seizure DO, hx brain tumor resection 2002. She is seen and examined today. Awake and alert. Speech therapy at bedside. Evaluated the patient and patient unable to swallow even with cues have difficulty swallowing half spoonful of applesauce. Recommends n.p.o. for now. Patient is able to follow some commands however slow in response. Nonverbal. Appears comfortable. Physical Exam Vital signs: Vital Signs 02/02/18 12:00 02/02/18 16:00 02/02/18 19:46 Temperature 98.5 F 98.5 F 98.4 F Pulse Rate 84 92 H 76 Respiratory Rate 16 16 18 Blood Pressure 123/58 L 136/62 141/67 H Pulse Oximetry 96 97 96 02/02/18 22:29 02/03/18 00:27 02/03/18 03:43 Temperature 97.2 F L 98.5 F Pulse Rate 88 76 76 Respiratory Rate 18 16 20 Blood Pressure 138/64 157/73 H Pulse Oximetry 95 98 02/03/18 07:07 02/03/18 08:00 02/03/18 09:14 Temperature 98.4 F Pulse Rate 80 85 85 Respiratory Rate 16 16 Blood Pressure 137/70 Pulse Oximetry 95 Intake & Output 02/02/18 02/03/18 02/03/18 18:59 06:59 18:59 Intake Total 250 / 250 303 / 303 152.6 / 152.6 Output Total 500 / 500 1999 Balance -250 / -250 -1697 / -1697 152.6 / 152.6 Weight 50.7 kg Intake: IV 250 / 250 303 / 303 152.6 / 152.6 Unasyn Inj 3 GM In NS Inj 100 200 / 200 100 / 100 ML @ 200 mls/hr IV.SIG Q6H MICK Rx#:[id number] Azithromycin Inj 250 MG In NS 250 / 250 Inj 250 ML @ 250 mls/hr IV.SIG Q24H MICK Rx#:[id number] Dilantin Inj 150 MG In NS Inj 103 / 103 100 ML @ 240 mls/hr IV.SIG Q8H ONE Rx#:[id number] Dilantin Inj 130 MG In NS Inj 52.6 / 52.6 50 ML @ 300 mls/hr IV.SIG TID MICK Rx#:[id number] Output: Urine 1000 / 1000 Urine Amount (Catheter) 500 / 500 1000 / 1000 Indwelling Urethral Catheter 500 / 500 1000 / 1000 Other: Weight On Admission 50.7 kg Narrative: GENERAL: This is a Thin appearing patient in no apparent distress. SKIN: Warm and dry. HEENT: Normocephalic. Pupils equal round and reactive. Able to track. Nose without bleeding. Airway patent. NECK: Trachea midline. Head tilted left, leaning left. CARDIOVASCULAR: Regular rate and rhythm without murmurs, gallops, or rubs. RESPIRATORY: Clear to auscultation. Breath sounds equal bilaterally. No wheezes , rales, or rhonchi. GASTROINTESTINAL: Abdomen soft, non-tender, nondistended. Bowel Sounds normoactive x4. MUSCULOSKELETAL: Extremities without clubbing, cyanosis. Left UE edema. Contractures, mild BUE. BLE foot drop NEUROLOGICAL: Awake and alert. Nonverbal. Slow response. Able to follow some commands - Urinary Catheter Management Indwelling Urethral Catheter Cath placed during this visit: no Results - Labs CBC & Chem 7: 02/02/18 00:20 02/03/18 11:52 Laboratory Results - last 24 hr 02/02/18 02/02/18 13:20 13:20 Phenytoin 5.6 L Valproic Acid 29 L - Procedures None Assessment and Plan - Plan 77-year-old female with a history of seizure disorder, brain tumor resection in 2002 who presents from [facility] facility secondary to seizure. Seizure History of brain tumor. -Neurology consulted appreciate recommendations. Workup ordered as per neurology. Appreciate assistance. EEG pending. -Swallow eval, failed. NPO for now. Will contact family member plan for NGT temporary and possible PEG if patient continues to fail. -Follow up neurology recommendations and workup -On Dilantin, Depakote Community-acquired pneumonia. Versus aspiration pneumonia -Chest x-ray with right lung parenchymal opacity. -On Unasyn and azithromycin -Monitor Hypothyroidism. Patient still in postictal state. Chronic. Continue home meds when tolerating p.o. COPD. Not in exacerbation. DVT Prop SCDs Code Status: DNR Discussed Condition With: Patient, nursing, Dr. Asencio Discharge Planning: Plan to DC when clinically improved back to [facility].
--- NOTE | 2018-02-03 10:47 | P.PNNEU ---
Subjective Subjective Comments: No acute events reported No headache No chest pain No dyspnea Active Medications: Active Medications Acetylcysteine (Mucomyst 20% Neb) 3 ml NEB BID NEB [facility] Last Admin: 02/03/18 07:05 Dose: 3 ml Al Hydroxide/Mg Hydroxide (Milk Of Magnesia Liq) 30 ml PO Q12H PRN PRN Reason: Mild Constipation Albuterol (Duoneb Neb (Prn)) 1 ampul NEB Q4HR NEB PRN PRN Reason: SOB/WHEEZING Last Admin: 02/03/18 07:05 Dose: 1 ampul Aspirin (Ecotrin) 81 mg PO DAILY [facility] Last Admin: 02/03/18 08:03 Dose: Not Given Atorvastatin Calcium (Lipitor) 10 mg PO DAILY [facility] Last Admin: 02/03/18 08:03 Dose: Not Given Bisacodyl (Dulcolax Supp) 10 mg RECTAL DAILY PRN PRN Reason: SEVERE CONSITIPATION Divalproex Sodium (Depakote Dr) 500 mg PO BID [facility] Last Admin: 02/03/18 08:02 Dose: Not Given Sodium Chloride (Ns Inj) 1,000 mls @ 100 mls/hr IV.CONT .Q10H [facility] Last Admin: 02/03/18 01:53 Dose: 100 mls/hr Azithromycin 250 mg/ Sodium (Chloride) 250 mls @ 250 mls/hr IV.SIG Q24H [facility] Last Infusion: 02/02/18 18:42 Dose: Infused Ampicillin Sodium/Sulbactam (Sodium 3 gm/ Sodium Chloride) 100 mls @ 200 mls/ hr IV.SIG Q6H [facility] Last Infusion: 02/03/18 07:15 Dose: Infused Phenytoin Sodium 130 mg/ (Sodium Chloride) 52.6 mls @ 300 mls/hr IV.SIG TID [facility] Last Admin: 02/03/18 09:58 Dose: 300 mls/hr Lactulose (Lactulose Liq) 30 ml PO DAILY PRN PRN Reason: SEVERE CONSITIPATION Levothyroxine Sodium (Synthroid) 25 mcg PO DAILY [facility] Last Admin: 02/03/18 08:03 Dose: Not Given Lorazepam (Ativan Inj) 1 mg IV.PUSH Q5M PRN PRN Reason: SEIZURE Pantoprazole Sodium (Protonix) 40 mg PO DAILY [facility] Last Admin: 02/03/18 08:03 Dose: Not Given Phenytoin Sodium (Dilantin) 130 mg PO TID [facility] Last Admin: 02/02/18 13:43 Dose: Not Given Senna/Docusate Sodium (Deena-Colace) 1 tab PO BID [facility] Last Admin: 02/03/18 08:03 Dose: Not Given Sennosides (Senokot) 17.2 mg PO Q12H PRN PRN Reason: Moderate Constipation Sertraline HCl (Zoloft) 100 mg PO DAILY [facility] Last Admin: 02/03/18 08:03 Dose: Not Given Tizanidine HCl (Zanaflex) 2 mg PO TID PRN PRN Reason: SPASM Allergies/Adverse Reactions: Allergies Allergy/AdvReac Type Severity Reaction Status Date / Time milk Allergy Unknown LACTOSE Verified 02/01/18 23:48 INTOLERANT chocolate flavor AdvReac Unknown "MAKES ME Verified 02/01/18 23:48 HYPER" MRI PRECAUTION AdvReac Severe SHUNT/ Uncoded 01/24/18 09:45 METAL CLIP IN BRAIN PER DR CLINE KD 06/15/08 *MDRO Multi-Drug Resistant AdvReac Unknown UNKNOWN Uncoded 01/24/18 09:45 Organism Physical Exam Vital signs: Vital Signs 02/02/18 12:00 02/02/18 16:00 02/02/18 19:46 Temperature 98.5 F 98.5 F 98.4 F Pulse Rate 84 92 H 76 Respiratory Rate 16 16 18 Blood Pressure 123/58 L 136/62 141/67 H Pulse Oximetry 96 97 96 02/02/18 22:29 02/03/18 00:27 02/03/18 03:43 Temperature 97.2 F L 98.5 F Pulse Rate 88 76 76 Respiratory Rate 18 16 20 Blood Pressure 138/64 157/73 H Pulse Oximetry 95 98 02/03/18 07:07 02/03/18 08:00 02/03/18 09:14 Temperature 98.4 F Pulse Rate 80 85 85 Respiratory Rate 16 16 Blood Pressure 137/70 Pulse Oximetry 95 Intake & Output 02/02/18 02/03/18 02/03/18 18:59 06:59 18:59 Intake Total 250 / 250 303 / 303 152.6 / 152.6 Output Total 500 / 500 1999 / 1999 Balance -250 / -250 -1697 / -1697 152.6 / 152.6 Weight 50.7 kg Intake: IV 250 / 250 303 / 303 152.6 / 152.6 Unasyn Inj 3 GM In NS Inj 100 200 / 200 100 / 100 ML @ 200 mls/hr IV.SIG Q6H MICK Rx#:[id number] Azithromycin Inj 250 MG In NS 250 / 250 Inj 250 ML @ 250 mls/hr IV.SIG Q24H MICK Rx#:[id number] Dilantin Inj 150 MG In NS Inj 103 / 103 100 ML @ 240 mls/hr IV.SIG Q8H ONE Rx#:[id number] Dilantin Inj 130 MG In NS Inj 52.6 / 52.6 50 ML @ 300 mls/hr IV.SIG TID MICK Rx#:[id number] Output: Urine 1000 / 1000 Urine Amount (Catheter) 500 / 500 1000 / 1000 Indwelling Urethral Catheter 500 / 500 1000 / 1000 Other: Weight On Admission 50.7 kg Narrative: GENERAL: Awake alert SKIN: Warm and dry. HEAD: Normocephalic. EYES: No scleral icterus. No injection or drainage. NECK: Supple, trachea midline. No JVD. CARDIOVASCULAR: Regular rate and rhythm RESPIRATORY: Breath sounds equal bilaterally. No accessory muscle use. GASTROINTESTINAL: Abdomen soft, non-tender, nondistended. MUSCULOSKELETAL: No cyanosis, or edema. Neurology: Awake alert oriented Extraocular movements intact no facial asymmetry tongue midline visual santillan full. Right spastic paresis reflexes trace no clonus plantarflex response no neglect pinprick intact gait not assessed secondary to fall risk - Constitutional no acute distress - Routine HEENT Exam Head: Present: normocephalic Eye: Present: EOMI - Routine Neck Exam Present: supple - Routine Abdominal Exam Present: soft - Urinary Catheter Management Indwelling Urethral Catheter Cath placed during this visit: no Objective Laboratory Results - last 24 hr 02/02/18 02/02/18 02/03/18 13:20 13:20 09:57 POC Glucose 114 H Phenytoin 5.6 L Valproic Acid 29 L Review/Management - Diagnosis (1) Chronic ischemic left MCA stroke Code(s): I69.30 - Unspecified sequelae of cerebral infarction Status: Acute Current Visit: Yes (2) BLENDING OPERATOR (ventriculoperitoneal) shunt status Code(s): Z98.2 - Presence of cerebrospinal fluid drainage device Status: Acute Current Visit: Yes (3) Seizure Code(s): R56.9 - Unspecified convulsions Status: Acute Current Visit: Yes (4) Bed confinement status Code(s): Z74.01 - Bed confinement status Status: Acute Current Visit: Yes - Review/Management Plan: Breakthrough seizure patient is bedbound with apparent underlying dementia Subtherapeutic Dilantin level Patient is afebrile without leukocytosis Recommendations Add IV phenobarbital, IV Vimpat Repeat EEG Additional bolus IV Celebrex Follow exam
[2018-02-03] MEDS ORDERED: Fosphenytoin Inj 1,000 MGPE in Sodium Chlor 0.9% Inj 50 ML IV.SIG ONE (11:30)
[2018-02-03 14:22] LABS: Alanine Aminotransferase 16 U/L (10-53); Albumin 3.2 g/dL (3.4-5.0); Alkaline Phosphatase 137 U/L (45-117); Anion Gap 11 meq/L (5-15); Aspartate Aminotransferase 26 U/L (15-37); Blood Urea Nitrogen 6 mg/dL (7-18); Calcium 8.5 mg/dL (8.5-10.1); Chloride 106 meq/L (98-107); Glomerular Filtration Rate Greater Than 89 mL/min (>89); Glucose,Random 78 mg/dL (74-106); Sodium 139 meq/L (136-145); Total Protein 7.5 g/dL (6.4-8.2)
[2018-02-03 14:23] LABS: Potassium 4.1 meq/L (3.5-5.1)
--- NOTE | 2018-02-03 14:45 | P.PNADD ---
Addendum to Inpatient Note Reason for Addendum: Additional Documentation Additional information: Breakthrough seizures. Ativan given by Nurse. Spoke with Dr. Ortega adjusting her anti seizure medication. Spoke with James Clayton and Abby Clayton, next of kin of patient discussed extensively regarding patient condition and her breakthrough seizures. Discussed plan of inserting NG tube for now and possible PEG placement later on. Family agrees to speak with palliative care for goals of care.
[2018-02-03] MEDS: Valproate Inj 500 MG in Sodium Chlor 0.9% Inj 100 ML IV.SIG SCH (16:33)
[2018-02-03] MEDS: Azithromycin Inj 250 MG in Sodium Chlor 0.9% Inj 250 ML IV.SIG SCH (17:36)
--- NOTE | 2018-02-03 18:03 | MG ---
cc: Vikash Ortega MD ELECTROENCEPHALOGRAM RECORD NUMBER: [id number]. DESCRIPTION: Left frontal sharp waves, reduced voltage and frequency, with left hemispheric slowing, as well as generalized slowing with delta, theta and some spindles suggestive of sleep state. No driving with photic stimulation. Single lead EKG showing sinus rhythm. INTERPRETATION: Mild to moderate encephalopathy. Sleep state with asymmetric left hemispheric slowing and left frontal discharges. Reduced frequency and voltage compared to previous EEG. Clinical correlation. MD GLORIA Hubbard/VASU , 05:45 PM , 06:01 PM
--- NOTE | 2018-02-03 18:10 | XR ---
EXAM DATE: 02/03/2018 6:03 PM EDT AGE/SEX: 77 years / Female INDICATIONS: Dobbhoff feeding tube placement. CLINICAL DATA: This is the patient's initial encounter. Patient reports that signs and symptoms have been present for 1 day and indicates a pain score of Nonresponsive. MEDICAL/SURGICAL HISTORY: Hypertension. Stroke. Seizure. . Shunt COMPARISON: [facility] – [place], [place] ABDOMEN & PELVIS W CONTRAST, 10/15/2017. [facility] [place], CT CHEST W/O CONTRAST, 02/03/20 18. . FINDINGS: Metallic tip feeding tube projects in the left hypogastric region and does not curve towards the rig ht, probably within the stomach. No dilated loops of small or large bowel. IVC filter in place. The v isualized lower lungs are clear. Metallic screws in the right femoral neck. CONCLUSION: Dobbhoff catheter tip in the left hypogastric region, probably distal stomach. Electronically signed by: Tyree Gonzalez MD 02/03/2018 6:09 PM EDT
[2018-02-03 18:15] LABS: Baso % (Auto) 0.5 % (0.0-2.0); Eos % (Auto) 0.1 % (0.0-4.0); Hematocrit 43.3 % (35.0-46.0); Hemoglobin 14.3 gm/dL (11.6-15.3); Lymph # (Auto) 1.3 th/mm3 (1.0-4.8); Mean Corpuscular HGB Conc 32.9 % (32.0-36.0); Mean Corpuscular Hemoglobin 31.1 pg (27.0-34.0); Mean Corpuscular Volume 94.4 fL (80.0-100.0); Mean Platelet Volume 8.7 fL (7.0-11.0); Mono # (Auto) 0.4 th/mm3 (0.0-0.9); Neut # (Auto) 5.3 th/mm3 (1.8-7.7); Neut % (Auto) 75.4 % (16.0-70.0); Platelet Count 108 th/mm3 (150-450); Red Blood Count 4.59 mil/mm3 (4.00-5.30); Red Cell Distribution Width 14.8 % (11.6-17.2)
[2018-02-03 18:52] LABS: Acanthocytes Occ; Platelet Morphology Normal (Normal)
[2018-02-03] MEDS: Divalproex 125 MG Sprinkles Capsule NG/OG SCH (22:40)
[2018-02-04] MEDS: Valproate Inj 500 MG in Sodium Chlor 0.9% Inj 100 ML IV.SIG SCH ×3 (00:33→15:09)
[2018-02-04] MEDS: Sod Chloride 0.9% Inj 1,000 ML IV.CONT SCH ×3 (04:34→18:49)
[2018-02-04] MEDS: Ampicillin/Sulbactam Inj 3 GM in Sodium Chloride 0.9% Inj 100 ML IV.SIG SCH ×3 (06:06→18:48)
[2018-02-04] MEDS: Senna/Docusate Sodium 8.6/50 MG Tablet PO SCH ×2 (09:15→22:36)
[2018-02-04] MEDS: Divalproex 125 MG Sprinkles Capsule NG/OG SCH ×2 (09:17→22:36)
[2018-02-04] MEDS: Sertraline 100 MG Tablet NG/OG SCH (09:17)
[2018-02-04] MEDS: Aspirin 325 MG Tablet NG/OG SCH (09:17)
--- NOTE | 2018-02-04 09:30 | P.PNNEU ---
Subjective Subjective Comments: No acute events reported No seizures overnight reported did have one yesterday during the day extra seizure med medications given No headache No chest pain No dyspnea Active Medications: Active Medications Acetylcysteine (Mucomyst 20% Neb) 3 ml NEB BID NEB [facility] Last Admin: 02/04/18 07:28 Dose: 3 ml Al Hydroxide/Mg Hydroxide (Milk Of Magnesia Liq) 30 ml PO Q12H PRN PRN Reason: Mild Constipation Albuterol (Duoneb Neb (Prn)) 1 ampul NEB Q4HR NEB PRN PRN Reason: SOB/WHEEZING Last Admin: 02/04/18 07:29 Dose: 1 ampul Aspirin (Aspirin) 81 mg NG/OG DAILY [facility] Last Admin: 02/04/18 09:17 Dose: Not Given Atorvastatin Calcium (Lipitor) 10 mg NG/OG DAILY [facility] Last Admin: 02/04/18 09:17 Dose: Not Given Bisacodyl (Dulcolax Supp) 10 mg RECTAL DAILY PRN PRN Reason: SEVERE CONSITIPATION Divalproex Sodium (Depakote Sprinkles) 500 mg NG/OG BID [facility] Last Admin: 02/04/18 09:17 Dose: Not Given Sodium Chloride (Ns Inj) 1,000 mls @ 100 mls/hr IV.CONT .Q10H [facility] Last Admin: 02/04/18 08:37 Dose: Not Given Azithromycin 250 mg/ Sodium (Chloride) 250 mls @ 250 mls/hr IV.SIG Q24H [facility] Last Infusion: 02/03/18 19:51 Dose: Infused Ampicillin Sodium/Sulbactam (Sodium 3 gm/ Sodium Chloride) 100 mls @ 200 mls/ hr IV.SIG Q6H [facility] Last Infusion: 02/04/18 07:56 Dose: Infused Phenytoin Sodium 130 mg/ (Sodium Chloride) 52.6 mls @ 300 mls/hr IV.SIG TID [facility] Last Infusion: 02/04/18 01:15 Dose: Infused Valproate Sodium 500 mg/ (Sodium Chloride) 105 mls @ 105 mls/hr IV.SIG Q8H [facility] Last Admin: 02/04/18 08:37 Dose: 105 mls/hr Lactulose (Lactulose Liq) 30 ml PO DAILY PRN PRN Reason: SEVERE CONSITIPATION Lansoprazole (Prevacid Solutab) 30 mg NG/OG DAILY [facility] Last Admin: 02/04/18 09:17 Dose: Not Given Levothyroxine Sodium (Synthroid) 25 mcg NG/OG DAILY@0600 [facility] Last Admin: 02/04/18 05:58 Dose: Not Given Lorazepam (Ativan Inj) 1 mg IV.PUSH Q5M PRN PRN Reason: SEIZURE Last Admin: 02/03/18 13:55 Dose: 1 mg Phenytoin Sodium (Dilantin) 130 mg PO TID [facility] Last Admin: 02/02/18 13:43 Dose: Not Given Senna/Docusate Sodium (Deena-Colace) 1 tab PO BID [facility] Last Admin: 02/04/18 09:15 Dose: Not Given Sennosides (Senokot) 17.2 mg PO Q12H PRN PRN Reason: Moderate Constipation Sertraline HCl (Zoloft) 100 mg NG/OG DAILY [facility] Last Admin: 02/04/18 09:17 Dose: Not Given Tizanidine HCl (Zanaflex) 2 mg PO TID PRN PRN Reason: SPASM Allergies/Adverse Reactions: Allergies Allergy/AdvReac Type Severity Reaction Status Date / Time milk Allergy Unknown LACTOSE Verified 02/01/18 23:48 INTOLERANT chocolate flavor AdvReac Unknown "MAKES ME Verified 02/01/18 23:48 HYPER" MRI PRECAUTION AdvReac Severe SHUNT/ Uncoded 01/24/18 09:45 METAL CLIP IN BRAIN PER DR CLINE KD 06/15/08 *MDRO Multi-Drug Resistant AdvReac Unknown UNKNOWN Uncoded 01/24/18 09:45 Organism Review of Systems All other systems reviewed negative except as stated in HPI Physical Exam Vital signs: Vital Signs 02/03/18 12:00 02/03/18 13:51 02/03/18 14:02 Temperature 98.5 F 97.8 F Pulse Rate 80 98 H 80 Respiratory Rate 16 Blood Pressure 137/69 171/91 H 137/77 Pulse Oximetry 97 94 L 98 02/03/18 15:27 02/03/18 19:20 02/03/18 20:00 Temperature 98.0 F Pulse Rate 77 79 78 Respiratory Rate 18 18 15 Blood Pressure 110/55 L 103/55 L Pulse Oximetry 100 99 99 02/03/18 23:24 02/04/18 00:00 02/04/18 03:51 Temperature 97.2 F L 99.1 F Pulse Rate 81 67 72 Respiratory Rate 17 15 Blood Pressure 137/84 116/60 Pulse Oximetry 98 100 02/04/18 07:28 02/04/18 08:00 Temperature 98.1 F Pulse Rate 75 75 Respiratory Rate 17 16 Blood Pressure 116/65 Pulse Oximetry 100 100 Intake & Output 02/03/18 02/04/18 02/04/18 18:59 06:59 18:59 Intake Total 1532.8 / 1532.8 1607.6 / 1607.6 100 / 100 Output Total 575 / 575 Balance 957.8 / 957.8 1607.6 / 1607.6 100 / 100 Intake: IV 1532.8 / 1532.8 1607.6 / 1607.6 100 / 100 NS Inj 1,000 ML @ 100 mls/hr IV 1000 / 1000 1000 / 1000 .CONT .Q10H [facility] Rx#:[id number] Unasyn Inj 3 GM In NS Inj 100 200 / 200 200 / 200 100 / 100 ML @ 200 mls/hr IV.SIG Q6H [facility] Rx#:[id number] Azithromycin Inj 250 MG In NS 250 / 250 Inj 250 ML @ 250 mls/hr IV.SIG Q24H [facility] Rx#:[id number] Cerebyx Inj 1,000 MGPE In NS 70 / 70 Inj 50 ML @ 280 mls/hr IV.SIG ONCE ONE Rx#:[id number] Dilantin Inj 130 MG In NS Inj 157.8 / 157.8 52.6 / 52.6 50 ML @ 300 mls/hr IV.SIG TID IMCK Rx#:[id number] Depacon Inj 500 MG In NS Inj 105 / 105 105 / 105 100 ML @ 105 mls/hr IV.SIG Q8H [facility] Rx#:[id number] Output: Urine Amount (Catheter) 575 / 575 Indwelling Urethral Catheter 575 / 575 Narrative: GENERAL: Alert, NAD. SKIN: Warm and dry. HEAD: Normocephalic. EYES: No scleral icterus. No injection or drainage. NECK: Supple, trachea midline. No JVD or lymphadenopathy. CARDIOVASCULAR: Regular rate and rhythm without murmurs, gallops, or rubs. RESPIRATORY: Breath sounds equal bilaterally. No accessory muscle use. GASTROINTESTINAL: Abdomen soft, non-tender, nondistended. MUSCULOSKELETAL: No cyanosis, or edema. BACK: Nontender without obvious deformity. No CVA tenderness. Awake alert oriented 1 to self dysarthric dysphonic speech with right spastic hemiparesis left head tilt follow simple motor requests with her left side no involuntary movements no jerking - Urinary Catheter Management Indwelling Urethral Catheter Cath placed during this visit: no Objective Laboratory Results - last 24 hr 02/03/18 02/03/18 02/03/18 09:57 11:52 11:52 WBC RBC Hgb Hct MCV MCH MCHC RDW Plt Count MPV Prelim Diff (Auto) Neut % (Auto) Lymph % (Auto) [place] % (Auto) Eos % (Auto) Baso % (Auto) Neut # (Auto) Lymph # (Auto) [place] # (Auto) Eos # (Auto) Baso # (Auto) WBC Differential Diff Scan Differential Comment Platelet Estimate Platelet Morphology Acanthocytes (Spur) Sodium 139 Potassium 4.1 D Chloride 106 Carbon Dioxide 22.0 Anion Gap 11 BUN 6 L Creatinine 0.38 L Estimated GFR Greater than 89 POC Glucose 114 H Random Glucose 78 Calcium 8.5 Total Bilirubin 0.5 AST 26 ALT 16 Alkaline Phosphatase 137 H Total Protein 7.5 D Albumin 3.2 L Phenytoin 8.8 L 02/03/18 02/04/18 17:59 08:43 WBC 7.0 RBC 4.59 Hgb 14.3 Hct 43.3 MCV 94.4 MCH 31.1 MCHC 32.9 RDW 14.8 Plt Count 108 L D MPV 8.7 Prelim Diff (Auto) Slide review pending Neut % (Auto) 75.4 H Lymph % (Auto) 18.0 [place] % (Auto) 6.0 Eos % (Auto) 0.1 Baso % (Auto) 0.5 Neut # (Auto) 5.3 Lymph # (Auto) 1.3 [place] # (Auto) 0.4 Eos # (Auto) 0.0 Baso # (Auto) 0.0 WBC Differential . Diff Scan Auto diff confirmed Differential Comment . Platelet Estimate Low L Platelet Morphology Normal Acanthocytes (Spur) Occ H Sodium Potassium Chloride Carbon Dioxide Anion Gap BUN Creatinine Estimated GFR POC Glucose 131 H Random Glucose Calcium Total Bilirubin AST ALT Alkaline Phosphatase Total Protein Albumin Phenytoin Microbiology 02/02/18 00:35 Aerobic Blood Culture - Preliminary Blood - Peripheral No growth in 1 day Anaerobic Blood Culture - Preliminary No growth in 1 day 02/02/18 00:25 Aerobic Blood Culture - Preliminary Blood - Peripheral No growth in 1 day Anaerobic Blood Culture - Preliminary No growth in 1 day Review/Management - Diagnosis (1) Chronic ischemic left MCA stroke Code(s): I69.30 - Unspecified sequelae of cerebral infarction Status: Acute Current Visit: Yes (2) [employer] (ventriculoperitoneal) shunt status Code(s): Z98.2 - Presence of cerebrospinal fluid drainage device Status: Acute Current Visit: Yes (3) Seizure Code(s): R56.9 - Unspecified convulsions Status: Acute Current Visit: Yes (4) Bed confinement status Code(s): Z74.01 - Bed confinement status Status: Acute Current Visit: Yes - Review/Management Plan: Breakthrough seizure patient is bedbound with apparent underlying dementia Subtherapeutic Dilantin level Patient is afebrile without leukocytosis Follow-up EEG improved Recommendations Looks more alert times to follow Continue seizure medications Follow exam
[2018-02-04] MEDS: SODIUM CHLOR 0.9% IV.SIG SCH ×3 (09:53→18:04)
[2018-02-04] MEDS: PHENYTOIN IV.SIG SCH ×3 (09:53→18:04)
[2018-02-04] MEDS: Lacosamide Inj 100 MG in Sodium Chlor 0.9% Inj 100 ML IV.SIG SCH ×2 (10:40→21:15)
--- NOTE | 2018-02-04 10:57 | P.CONPAL ---
Consult Service: Palliative Care Requesting Physician: Talita Betts Reason for Consult: a. To assist with evaluation and management of symptoms including: dysphagia. b. To assist medical decision maker(s) with: better understanding of current medical conditions; weighing benefits/burdens of medical treatment options; making medical treatment decisions. Primary Care Provider: No Primary Care Physician History of Present Illness History of Present Illness: Ms. 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 She was on Levaquin for UTI prior to admission, has indwelling Leary. Patient presented to [facility] emergency department on 02/02/18 from [facility] after having 2 seizures. EMS witnessed focal staring upon arrival, she was given Versed 2mg IM. Upon arrival to the emergency department the patient was lethargic, mildly hypotensive likely due to Versed for seizure management. Initial findings: * VS: Temp 97.7, pulse 79, respiration 14, BP 97/55, oxygen saturation 98% on room air. * WBC 4.8, hemoglobin 13.2, hematocrit 39.5, platelet count 320, neutrophil 51.6 % * Sodium 138, potassium 5.1, chloride 105, carbon dioxide 28.1, BUN 14, creatinine 0.32, GFR greater than 89, glucose 110, calcium 8.4 * lactic acid 1.2 * Total bilirubin 0.3, AST 27, ALT 15, alkaline phosphatase 105 * Total protein 6.5, albumin 2.8 * Urinalysis negative. * Dilantin level 7.2 * Valproic acid 29 * CXR -right lung parenchymal opacity, possible scarring/chronic lung disease versus atelectasis or mild consolidation, moderate severity cardiac silhouette enlargement. * CT head -chronic postsurgical findings and right-sided parietal ventricular shunt catheter, chronic periventricular white matter hypodensity and left frontal lobe encephalomalacia, no acute intracranial findings. * CT chest-bilateral lower lobe atelectasis and bronchiectasis unchanged, mild patchy atelectasis in the upper to mid lung zones, triangular nodular density in the right lower lobe unchanged from October 2017, recommend six-month follow-up , small right pleural effusion unchanged, coronary artery calcification. * EKG-sinus rhythm with occasional supraventricular premature complexes left anterior fascicular block. * Blood cultures, no growth. Patient was admitted with seizure, community-acquired pneumonia. Was started on Unasyn for coverage of bacterial pneumonia/aspiration pneumonia, Levaquin was discontinued due to seizure threshold. Neurology, Dr. Ortega was consulted with recommendation for EEG, MRI brain, continue Dilantin and Depakote. EEG revealed left frontal epileptic discharges. Speech therapy evaluated patient, she failed swallow evaluation, with recommendations for n.p.o. Dobbhoff catheter was placed for artificial nutrition and has since been removed. Patient may need PEG tube for prolonged artificial nutrition and medications. Palliative care was consulted to assist with further clarification of medical treatment goals. Function/Cognitive Trajectory: At baseline she is wheelchair-bound bedbound, has braces on her feet and legs to protect from dropfoot and ulcers. Hesitant in her speech but she can converse according to the senior care report. Review of Systems unobtainable due to mental status (lethargic, answers no to all questions. ROS per EMR review. ) Constitutional: Reports fatigue, Reports lack of energy, Reports weakness ( right sided residual weakness from prior stroke. ) Eyes: Reports blurry vision Gastrointestinal: Reports difficulty swallowing Musculoskeletal: Reports other (bed to WC bound) Psychiatric: Reports change in appetite (decreased) Hematologic/Lymphatic: Reports easy bruising PMFSH - History History Provided By: Medical Record, Flame Gouger / EMT - Medical History Medical History: Medical History (Last Reviewed 02/04/18 @ 10:48 by María Dia) Anxiety Brain tumor (benign) COPD (chronic obstructive pulmonary disease) Calcium deficiency Candidiasis of skin and nail Cerebral infarct Chronic pain Constipation Gout Hyperlipemia Hypothyroidism Major depressive disorder Neuromuscular dysfunction of bladder Pneumonia Seizures Ulcer of esophagus with bleeding Urinary retention Vitamin D deficiency - Surgical History Surgical History: Surgical History (Last Updated 02/04/18 @ 10:48 by María Dia) FH: BENEDICTO-BSO (total abdominal hysterectomy and bilateral salpingo-oophorectomy) H/O craniotomy History of open reduction and internal fixation (ORIF) procedure S/P 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 FACILITY EXAMINER shunt H/O brain surgery History of tonsillectomy - Family History Family History: Family History (Last Updated 02/04/18 @ 10:49 by María Dia) Other Hypertension - Tobacco History Second Hand Smoke Exposure: No Smoking Status: Never smoker - Alcohol History How Often Do You Have a Drink Containing Alcohol: Never - Substance Use History Substance History: No History of Abuse - Travel History Recent Travel in the [place] Within the Last 8 Weeks: No Recent Travel Out of the Country Within the Last 8 Weeks: No - Immunization History Tetanus Immunization: Unsure Hx Influenza Vaccine This Season: Unable to Assess Medications and Allergies Active Medications: Active Medications Acetylcysteine (Mucomyst 20% Neb) 3 ml NEB BID NEB [facility] Last Admin: 02/04/18 07:28 Dose: 3 ml Al Hydroxide/Mg Hydroxide (Milk Of Magntoño Liq) 30 ml PO Q12H PRN PRN Reason: Mild Constipation Albuterol (Duoneb Neb (Prn)) 1 ampul NEB Q4HR NEB PRN PRN Reason: SOB/WHEEZING Last Admin: 02/04/18 07:29 Dose: 1 ampul Aspirin (Aspirin) 81 mg NG/OG DAILY [facility] Last Admin: 02/04/18 09:17 Dose: Not Given Atorvastatin Calcium (Lipitor) 10 mg NG/OG DAILY [facility] Last Admin: 02/04/18 09:17 Dose: Not Given Bisacodyl (Dulcolax Supp) 10 mg RECTAL DAILY PRN PRN Reason: SEVERE CONSITIPATION Divalproex Sodium (Depakote Sprinkles) 500 mg NG/OG BID [facility] Last Admin: 02/04/18 09:17 Dose: Not Given Sodium Chloride (Ns Inj) 1,000 mls @ 100 mls/hr IV.CONT .Q10H [facility] Last Admin: 02/04/18 08:37 Dose: Not Given Azithromycin 250 mg/ Sodium (Chloride) 250 mls @ 250 mls/hr IV.SIG Q24H [facility] Last Infusion: 02/03/18 19:51 Dose: Infused Ampicillin Sodium/Sulbactam (Sodium 3 gm/ Sodium Chloride) 100 mls @ 200 mls/ hr IV.SIG Q6H [facility] Last Infusion: 02/04/18 07:56 Dose: Infused Phenytoin Sodium 130 mg/ (Sodium Chloride) 52.6 mls @ 300 mls/hr IV.SIG TID [facility] Last Admin: 02/04/18 09:53 Dose: 300 mls/hr Valproate Sodium 500 mg/ (Sodium Chloride) 105 mls @ 105 mls/hr IV.SIG Q8H [facility] Last Infusion: 02/04/18 09:55 Dose: Infused Lacosamide 100 mg/ Sodium (Chloride) 110 mls @ 110 mls/hr IV.SIG Q12HR MICK Lactulose (Lactulose Liq) 30 ml PO DAILY PRN PRN Reason: SEVERE CONSITIPATION Lansoprazole (Prevacid Solutab) 30 mg NG/OG DAILY [facility] Last Admin: 02/04/18 09:17 Dose: Not Given Levothyroxine Sodium (Synthroid) 25 mcg NG/OG DAILY@0600 [facility] Last Admin: 02/04/18 05:58 Dose: Not Given Lorazepam (Ativan Inj) 1 mg IV.PUSH Q5M PRN PRN Reason: SEIZURE Last Admin: 02/03/18 13:55 Dose: 1 mg Phenobarbital Sodium (Luminal Inj) 60 mg IM Q8HR [facility] Phenytoin Sodium (Dilantin) 130 mg PO TID [facility] Last Admin: 02/02/18 13:43 Dose: Not Given Senna/Docusate Sodium (Deena-Colace) 1 tab PO BID [facility] Last Admin: 02/04/18 09:15 Dose: Not Given Sennosides (Senokot) 17.2 mg PO Q12H PRN PRN Reason: Moderate Constipation Sertraline HCl (Zoloft) 100 mg NG/OG DAILY [facility] Last Admin: 02/04/18 09:17 Dose: Not Given Tizanidine HCl (Zanaflex) 2 mg PO TID PRN PRN Reason: SPASM Allergies Allergy/AdvReac Type Severity Reaction Status Date / Time milk Allergy Unknown LACTOSE Verified 02/01/18 23:48 INTOLERANT chocolate flavor AdvReac Unknown "MAKES ME Verified 02/01/18 23:48 HYPER" MRI PRECAUTION AdvReac Severe SHUNT/ Uncoded 01/24/18 09:45 METAL CLIP IN BRAIN PER DR MARLYN JUÁREZ 06/15/08 *MDRO Multi-Drug Resistant AdvReac Unknown UNKNOWN Uncoded 01/24/18 09:45 Organism Home Medications Medication Instructions Recorded Confirmed Type Lactobacillus rhamnosus GG 1 cap PO DAILY 01/22/18 02/02/18 History [Culturelle] Multi Vitamin 1 tab PO DAILY 01/22/18 02/02/18 History acetaminophen [Tylenol] 650 mg PO Q4H PRN 01/22/18 02/02/18 History ascorbic acid (vitamin C) [Vitamin 500 mg PO BID 01/22/18 02/02/18 History C] aspirin [Aspirin Low Dose] 81 mg PO DAILY 01/22/18 02/02/18 History atorvastatin 10 mg PO DAILY 01/22/18 02/02/18 History bisacodyl [Dulcolax (bisacodyl)] 1 suppositor OR DAILY PRN 01/22/18 02/02/18 History divalproex [Depakote] 500 mg PO BID 01/22/18 02/02/18 History hydrocodone-acetaminophen 1 tab PO Q4-6H PRN 01/22/18 02/02/18 History ipratropium-albuterol 3 ml INHALATION QID 01/22/18 02/02/18 History levothyroxine 25 mcg PO DAILY 01/22/18 02/02/18 History magnesium hydroxide [Milk of 30 ml PO DAILY PRN 01/22/18 02/02/18 History Magnesia] ondansetron HCl [Zofran] 4 mg PO Q6-8H PRN 01/22/18 02/02/18 History pantoprazole 40 mg PO DAILY 01/22/18 02/02/18 History phenytoin 100 mg PO TID 01/22/18 02/02/18 History sennosides [Senna Laxative] 8.6 mg PO DAILY 01/22/18 02/02/18 History sertraline 100 mg PO DAILY 01/22/18 02/02/18 History tizanidine 2 mg PO TID PRN 01/22/18 02/02/18 History acetylcysteine 3 ml INHALATION BID 01/24/18 02/02/18 History cholestyramine (with sugar) 4 g PO TID 01/24/18 02/02/18 History levofloxacin 500 mg PO DAILY 01/24/18 02/02/18 History Advance Directives Advance Directives Date on File: 06/16/06 (POA for HC and [place] DNR on file dated 12/24/14) Living Will: No Healthcare Surrogate: No Power of Cnc Machinist 2Nd Shift: Yes (POA includes health care decisions.) Power of Cnc Machinist 2Nd Shift Name: James Clayton brother Power of Cnc Machinist 2Nd Shift Power of Cnc Machinist 2Nd Shift Relationship to Patient: Family (brother.) Documented care wishes: No written Living Will. Today's verbally stated goals: Patient is not capacitated to make her own health care decisions. Family/friends goals: Family desires aggressive care short of NO CODE. They want PEG tube placement for artificial nutrition and meds. Ethical and Legal Issues: No known concerns at this time. Physical Exam Vital Signs: Vital Signs - 24 hr 02/03/18 12:00 02/03/18 13:51 02/03/18 14:02 Temperature 98.5 F 97.8 F Pulse Rate 80 98 H 80 Respiratory Rate 16 Blood Pressure 137/69 171/91 H 137/77 Pulse Oximetry 97 94 L 98 02/03/18 15:27 02/03/18 19:20 02/03/18 20:00 Temperature 98.0 F Pulse Rate 77 79 78 Respiratory Rate 18 18 15 Blood Pressure 110/55 L 103/55 L Pulse Oximetry 100 99 99 02/03/18 23:24 02/04/18 00:00 02/04/18 03:51 Temperature 97.2 F L 99.1 F Pulse Rate 81 67 72 Respiratory Rate 17 15 Blood Pressure 137/84 116/60 Pulse Oximetry 98 100 02/04/18 07:28 02/04/18 08:00 Temperature 98.1 F Pulse Rate 75 75 Respiratory Rate 17 16 Blood Pressure 116/65 Pulse Oximetry 100 100 I&O: Intake & Output 02/02/18 02/03/18 02/04/18 02/05/18 06:59 06:59 06:59 06:59 Intake Total 553 / 553 3140.4 / 3140.4 Output Total 750 / 750 2500 / 2500 575 / 575 Balance -750 / -750 -194 / -1946 2565.4 / 2565.4 Weight 45.359 kg 50.7 kg Physical Exam: CONSTITUTIONAL/GENERAL: This is an elderly, frail patient, in no apparent distress. TUBES/LINES/DRAINS: Oxygen via NC, PIV, podus boots. SKIN: No jaundice, rashes, or lesions. Ecchymoses on upper extremities. No wounds seen anteriorly. Skin temperature appropriate. Not diaphoretic. HEAD: Atraumatic. Normocephalic. EYES: Pupils equal and round and reactive. ENT: Hearing appears grossly normal. Nose without bleeding or purulent drainage. Mouth closed. NECK: Trachea midline. CARDIOVASCULAR: Regular rate and rhythm without murmurs. RESPIRATORY/CHEST: Symmetric, unlabored respirations. Scattered coarse breath sounds. GASTROINTESTINAL: Abdomen soft, non-tender, nondistended. No guarding. Bowel sounds present. GENITOURINARY: Without palpable bladder distension. MUSCULOSKELETAL: Extremities without clubbing, cyanosis, or edema. No mottling or clubbing. LYMPHATICS: No palpable cervical or supraclavicular adenopathy. NEUROLOGICAL: Awakens easily. Answer "no" to all questions. Other speech mumbled and unable to understand. Follow simple commands on left. No movement noted on right side. PSYCHIATRIC: No obvious anxiety/depression. no apparent hallucinations or other psychotic thought process. Diagnostic Tests Laboratory: Laboratory Results - last 72 hr 02/02/18 02/02/18 02/02/18 00:20 00:20 00:20 WBC 4.8 RBC 4.29 Hgb 13.2 Hct 39.5 MCV 92.2 MCH 30.9 MCHC 33.5 RDW 14.6 Plt Count 320 MPV 8.8 Prelim Diff (Auto) Neut % (Auto) 51.6 Lymph % (Auto) 32.2 Coke % (Auto) 13.9 H Eos % (Auto) 1.4 Baso % (Auto) 0.9 Neut # (Auto) 2.5 Lymph # (Auto) 1.6 Coke # (Auto) 0.7 Eos # (Auto) 0.1 Baso # (Auto) 0.0 WBC Differential . Diff Scan Differential Comment Auto diff final Platelet Estimate Platelet Morphology Acanthocytes (Spur) Sodium 138 Potassium 5.1 Chloride 105 Carbon Dioxide 28.1 Anion Gap 5 BUN 14 Creatinine 0.32 L Estimated GFR Greater than 89 POC Glucose Random Glucose 110 H Lactic Acid Calcium 8.4 L Total Bilirubin 0.3 AST 27 ALT 15 Alkaline Phosphatase 105 Total Protein 6.5 Albumin 2.8 L Urine Color Urine Clarity Urine pH Ur Specific Weston Urine Protein Urine Glucose (UA) Urine Ketones Urine Occult Blood Urine Nitrate Urine Bilirubin Urine Urobilinogen Ur Leukocyte Esterase Urine RBC Urine WBC Urine Mucus Micro UA Comment Urine Culture Comments Phenytoin 7.2 L Valproic Acid 02/02/18 02/02/18 02/02/18 00:35 00:50 13:20 WBC RBC Hgb Hct MCV MCH MCHC RDW Plt Count MPV Prelim Diff (Auto) Neut % (Auto) Lymph % (Auto) Coke % (Auto) Eos % (Auto) Baso % (Auto) Neut # (Auto) Lymph # (Auto) Coke # (Auto) Eos # (Auto) Baso # (Auto) WBC Differential Diff Scan Differential Comment Platelet Estimate Platelet Morphology Acanthocytes (Spur) Sodium Potassium Chloride Carbon Dioxide Anion Gap BUN Creatinine Estimated GFR POC Glucose Random Glucose Lactic Acid 1.2 Calcium Total Bilirubin AST ALT Alkaline Phosphatase Total Protein Albumin Urine Color Yellow Urine Clarity Clear Urine pH 6.0 Ur Specific Weston 1.009 Urine Protein Negative Urine Glucose (UA) Negative Urine Ketones Negative Urine Occult Blood Negative Urine Nitrate Negative Urine Bilirubin Negative Urine Urobilinogen Less than 2 Ur Leukocyte Esterase Negative Urine RBC 1 Urine WBC 1 Urine Mucus Few H Micro UA Comment Cath-culture not ind Urine Culture Comments Cath-cult not ind Phenytoin Valproic Acid 29 L 02/02/18 02/03/18 02/03/18 13:20 09:57 11:52 WBC RBC Hgb Hct MCV MCH MCHC RDW Plt Count MPV Prelim Diff (Auto) Neut % (Auto) Lymph % (Auto) Coke % (Auto) Eos % (Auto) Baso % (Auto) Neut # (Auto) Lymph # (Auto) Coke # (Auto) Eos # (Auto) Baso # (Auto) WBC Differential Diff Scan Differential Comment Platelet Estimate Platelet Morphology Acanthocytes (Spur) Sodium 139 Potassium 4.1 D Chloride 106 Carbon Dioxide 22.0 Anion Gap 11 BUN 6 L Creatinine 0.38 L Estimated GFR Greater than 89 POC Glucose 114 H Random Glucose 78 Lactic Acid Calcium 8.5 Total Bilirubin 0.5 AST 26 ALT 16 Alkaline Phosphatase 137 H Total Protein 7.5 D Albumin 3.2 L Urine Color Urine Clarity Urine pH Ur Specific Weston Urine Protein Urine Glucose (UA) Urine Ketones Urine Occult Blood Urine Nitrate Urine Bilirubin Urine Urobilinogen Ur Leukocyte Esterase Urine RBC Urine WBC Urine Mucus Micro UA Comment Urine Culture Comments Phenytoin 5.6 L Valproic Acid 02/03/18 02/03/18 02/04/18 11:52 17:59 08:43 WBC 7.0 RBC 4.59 Hgb 14.3 Hct 43.3 MCV 94.4 MCH 31.1 MCHC 32.9 RDW 14.8 Plt Count 108 L D MPV 8.7 Prelim Diff (Auto) Slide review pending Neut % (Auto) 75.4 H Lymph % (Auto) 18.0 Coke % (Auto) 6.0 Eos % (Auto) 0.1 Baso % (Auto) 0.5 Neut # (Auto) 5.3 Lymph # (Auto) 1.3 Coke # (Auto) 0.4 Eos # (Auto) 0.0 Baso # (Auto) 0.0 WBC Differential . Diff Scan Auto diff confirmed Differential Comment . Platelet Estimate Low L Platelet Morphology Normal Acanthocytes (Spur) Occ H Sodium Potassium Chloride Carbon Dioxide Anion Gap BUN Creatinine Estimated GFR POC Glucose 131 H Random Glucose Lactic Acid Calcium Total Bilirubin AST ALT Alkaline Phosphatase Total Protein Albumin Urine Color Urine Clarity Urine pH Ur Specific Weston Urine Protein Urine Glucose (UA) Urine Ketones Urine Occult Blood Urine Nitrate Urine Bilirubin Urine Urobilinogen Ur Leukocyte Esterase Urine RBC Urine WBC Urine Mucus Micro UA Comment Urine Culture Comments Phenytoin 8.8 L Valproic Acid Result Diagrams: 02/03/18 17:59 02/03/18 11:52 Microbiology: Microbiology 02/02/18 00:35 Aerobic Blood Culture - Preliminary Blood - Peripheral No growth in 1 day Anaerobic Blood Culture - Preliminary No growth in 1 day 02/02/18 00:25 Aerobic Blood Culture - Preliminary Blood - Peripheral No growth in 1 day Anaerobic Blood Culture - Preliminary No growth in 1 day Imaging: Chest X-Ray 02/02/18 00:18 CONCLUSION: 1. Right lung parenchymal opacity. May represent scarring/chronic lung disease versus atelectasis or mild consolidation. 2. Moderate severity cardiac silhouette enlargement. Head CT 02/02/18 04:47 CONCLUSION: 1. Chronic postsurgical findings and right-sided parietal ventricular shunt catheter. 2. Chronic periventricular white matter hypodensity and left frontal lobe encephalomalacia. 3. No acute intracranial findings. . Chest CT 02/02/18 04:51 CONCLUSION: 1. Bilateral lower lobe atelectasis and bronchiectasis unchanged. Mild patchy atelectasis in the upper to mid lung zones. 2. Triangular nodular density in the right lower lobe unchanged from October 2017 CT abdomen and pelvis. Recommend six-month follow-up noncontrast chest CT. 3. Small right pleural effusion unchanged. 4. Coronary artery calcification. Abdomen X-Ray 02/03/18 00:00 CONCLUSION: Dobbhoff catheter tip in the left hypogastric region, probably distal stomach. Patient/Family Conference Present at Family Conference: BrotherJames and sister in [place] mclean via phone. Family Conference Time: 30 Family Conference Location: Telephone Issues Discussed: * Palliative care role, purpose, approach * Additional medical, psychosocial, and spiritual history * Patients general health, functional status, and cognitive changes in the months leading up to the current hospitalization * Patient/family understanding of the current medical problems * Patient/family understanding of prognosis * Patients goals of care as best understood from advance directives and/or conversations and/or values * Current medical treatment options and benefits/burdens of those options * Likely scenarios comparing ongoing aggressive care with a transition to comfort measures only * Questions answered to the best of my ability * Palliative care contact information provided Palliative care spoke with brothJames issa and Abby LO via phone to provide medical update. Lengthy conversation about aspiration risk, seizures and risk for further setbacks or decline. Family desires NO CODE, though wish to proceed with PEG tube. They "do not want to just let her starve to ." They are open to consideration of hospice in the future if she declines, but for now desire continued aggressive care short of NO CODE. Patient was previously on hospice 4 years ago and survived. Assessment and Plan Pertinent Non-Medical Issues: Psychosocial: x 2. Has 4 children. 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 Spiritual: Sikh kelly. Legal: Patient is not capacitated to make her own health care decisions. She Completed Power of Cnc Machinist 2Nd Shift for health care naming her brother, James Clayton as health care POA in 2005. Ethical issues impacting care: No known concerns at this time. . Important Contacts: * Brother: James Clayton [phone] POA for health care. * Abby JOHNS: [phone]. * Friend: Mili Phipps [phone] Prognosis: Ms. Clayton is a 77-year-old female who presented post seizure activity with subtherapeutic Dilantin level, aspiration pneumonia. Patient is bed to wheelchair bound in senior living facility prior to admission. Failed swallow evaluation, Dobbhoff has been removed since 02/03/18. Patient will likely have continued swallowing issues, aspiration pneumonia, repeat infections which puts her at high risk for further setbacks decline or even . Hospice appropriate if goals are comfort oriented. Family desires continued aggressive care including PEG tube placement at this time. Code Status: No Code DNR Plan: * Patient is not capacitated to make her own health care decisions. She Completed Power of Cnc Machinist 2Nd Shift for health care naming her brother, James Clayton as health care POA in 2005. * NO CODE * Palliative care spoke with brotherJames and Melvi LOe via phone to provide medical update. Lengthy conversation about aspiration risk, seizures and risk for further setbacks or decline. Family desires NO CODE, though wish to proceed with PEG tube. They "do not want to just let her starve to ." They are open to consideration of hospice in the future if she declines, but for now desire continued aggressive care short of NO CODE. Patient was previously on hospice 4 years ago and survived. * SYMPTOMS: Dysphagia: due to recurrent seizures, prior CVA and decline. Speech recommends NPO. Dobbhoff in place. May need PEG tube if family desires continued aggressive care. Pain: chronic pain, patient answers no to all questions. Does not appear painful during my visit, will monitor. No medication recommendations at this time. * Palliative Care will continue to follow during hospitalization to address symptoms of palliative concern and to further clarify medical treatment goals. . Appreciation Thank you for the opportunity to participate in the care of Su Clayton. Attestation Attestation: To help prompt me to consider important information that might be impacting today's encounter and assessment, information from prior notes written by myself or my colleagues may have been "brought forward" into today's note. My signature on this note, however, is an attestation that I personally performed the exam, history, and/or decision-making noted today, and, unless otherwise indicated, the interactions with patient, family, and staff as well as the review of records all occurred today. I also attest that the listed assessment and stated plan reflect my best clinical judgment today based on the combination of historical information, prior notes, and today's exam/ interactions. When time spent is documented, it refers only to time spent today by the signer, or if indicated, combined time spent today by collaborating physician/nurse practitioner.
--- NOTE | 2018-02-04 13:36 | P.PN ---
Subjective Interval history: Follow up seizure DO, hx brain tumor resection 2002. Patient seen and examined today. Awake and alert. Minimal verbalization but able to say "james Watts." Does not respond to questions, follows simple commands. Appears to be comfortable. As per nursing, NG tube was pulled out last night, Dobbhoff, secondary to unable to pull out the guidewire. Will attempt to replace today if unable to plan for PEG placement Physical Exam Vital signs: Vital Signs 02/03/18 13:51 02/03/18 14:02 02/03/18 15:27 Temperature 97.8 F Pulse Rate 98 H 80 77 Respiratory Rate 18 Blood Pressure 171/91 H 137/77 110/55 L Pulse Oximetry 94 L 98 100 02/03/18 19:20 02/03/18 20:00 02/03/18 23:24 Temperature 98.0 F 97.2 F L Pulse Rate 79 78 81 Respiratory Rate 18 15 17 Blood Pressure 103/55 L 137/84 Pulse Oximetry 99 99 98 02/04/18 00:00 02/04/18 03:51 02/04/18 07:28 Temperature 99.1 F Pulse Rate 67 72 75 Respiratory Rate 15 17 Blood Pressure 116/60 Pulse Oximetry 100 100 02/04/18 08:00 02/04/18 09:15 02/04/18 12:00 Temperature 98.1 F 97.2 F L Pulse Rate 75 72 74 Respiratory Rate 16 16 Blood Pressure 116/65 102/70 Pulse Oximetry 100 100 Intake & Output 02/03/18 02/04/18 02/04/18 18:59 06:59 18:59 Intake Total 1532.8 / 1532.8 1607.6 / 1607.6 467.6 / 467.6 Output Total 575 / 575 Balance 957.8 / 957.8 1607.6 / 1607.6 467.6 / 467.6 Intake: IV 1532.8 / 1532.8 1607.6 / 1607.6 467.6 / 467.6 NS Inj 1,000 ML @ 100 mls/hr IV 1000 / 1000 1000 / 1000 .CONT .Q10H [facility] Rx#:[id number] Unasyn Inj 3 GM In NS Inj 100 200 / 200 200 / 200 200 / 200 ML @ 200 mls/hr IV.SIG Q6H [facility] Rx#:[id number] Azithromycin Inj 250 MG In NS 250 / 250 Inj 250 ML @ 250 mls/hr IV.SIG Q24H [facility] Rx#:[id number] Cerebyx Inj 1,000 MGPE In NS 70 / 70 Inj 50 ML @ 280 mls/hr IV.SIG ONCE ONE Rx#:[id number] Vimpat Inj 100 MG In NS Inj 100 110 / 110 ML @ 110 mls/hr IV.SIG Q12HR [facility] Rx#:[id number] Dilantin Inj 130 MG In NS Inj 157.8 / 157.8 52.6 / 52.6 52.6 / 52.6 50 ML @ 300 mls/hr IV.SIG TID [facility] Rx#:[id number] Depacon Inj 500 MG In NS Inj 105 / 105 105 / 105 105 / 105 100 ML @ 105 mls/hr IV.SIG Q8H [facility] Rx#:[id number] Output: Urine Amount (Catheter) 575 / 575 Indwelling Urethral Catheter 575 / 575 Other: Date of Last Bowel Movement 02/03/18 Narrative: GENERAL: This is a well-nourished, well-developed patient, in no apparent distress. SKIN: Warm and dry HEENT: Normocephalic. Pupils equal round and reactive. Nose without bleeding. Airway patent. NECK: Trachea midline. Left leaning. CARDIOVASCULAR: Regular rate and rhythm without murmurs, gallops, or rubs. RESPIRATORY: Clear to auscultation. Breath sounds equal bilaterally. No wheezes , rales, or rhonchi. GASTROINTESTINAL: Abdomen soft, non-tender, nondistended. Bowel Sounds normoactive x4. MUSCULOSKELETAL: Extremities without clubbing, cyanosis, or edema. NEUROLOGICAL: Awake and alert. Oriented to self, responds to name call. Minimal verbalization. Follows simple commands Awake alert oriented 1 to self dysarthric dysphonic speech with right spastic hemiparesis left head tilt follow simple motor requests with her left side no involuntary movements no jerking - Urinary Catheter Management Indwelling Urethral Catheter Cath placed during this visit: no Results - Labs CBC & Chem 7: 02/03/18 17:59 02/03/18 11:52 Laboratory Results - last 24 hr 02/03/18 02/03/18 02/04/18 11:52 17:59 08:43 WBC 7.0 RBC 4.59 Hgb 14.3 Hct 43.3 MCV 94.4 MCH 31.1 MCHC 32.9 RDW 14.8 Plt Count 108 L D MPV 8.7 Prelim Diff (Auto) Slide review pending Neut % (Auto) 75.4 H Lymph % (Auto) 18.0 [place] % (Auto) 6.0 Eos % (Auto) 0.1 Baso % (Auto) 0.5 Neut # (Auto) 5.3 Lymph # (Auto) 1.3 [place] # (Auto) 0.4 Eos # (Auto) 0.0 Baso # (Auto) 0.0 WBC Differential . Diff Scan Auto diff confirmed Differential Comment . Platelet Estimate Low L Platelet Morphology Normal Acanthocytes (Spur) Occ H Sodium 139 Potassium 4.1 D Chloride 106 Carbon Dioxide 22.0 Anion Gap 11 BUN 6 L Creatinine 0.38 L Estimated GFR Greater than 89 POC Glucose 131 H Random Glucose 78 Calcium 8.5 Total Bilirubin 0.5 AST 26 ALT 16 Alkaline Phosphatase 137 H Total Protein 7.5 D Albumin 3.2 L Phenytoin 02/04/18 11:06 WBC RBC Hgb Hct MCV MCH MCHC RDW Plt Count MPV Prelim Diff (Auto) Neut % (Auto) Lymph % (Auto) [place] % (Auto) Eos % (Auto) Baso % (Auto) Neut # (Auto) Lymph # (Auto) [place] # (Auto) Eos # (Auto) Baso # (Auto) WBC Differential Diff Scan Differential Comment Platelet Estimate Platelet Morphology Acanthocytes (Spur) Sodium Potassium Chloride Carbon Dioxide Anion Gap BUN Creatinine Estimated GFR POC Glucose Random Glucose Calcium Total Bilirubin AST ALT Alkaline Phosphatase Total Protein Albumin Phenytoin 18.2 Microbiology 02/02/18 00:35 Blood - Peripheral Aerobic Blood Culture - Preliminary No growth in 2 days 02/02/18 00:35 Blood - Peripheral Anaerobic Blood Culture - Preliminary No growth in 2 days 02/02/18 00:25 Blood - Peripheral Aerobic Blood Culture - Preliminary No growth in 2 days 02/02/18 00:25 Blood - Peripheral Anaerobic Blood Culture - Preliminary No growth in 2 days - Imaging Impressions Abdomen X-Ray 02/03/18 00:00 CONCLUSION: Dobbhoff catheter tip in the left hypogastric region, probably distal stomach. - Procedures None Assessment and Plan - Assessment (1) Seizure Code(s): R56.9 - Unspecified convulsions Status: Acute - Plan 77-year-old female with a history of seizure disorder, brain tumor resection in 2002 who [facility] from [facility] secondary to seizure. Seizure History of brain tumor. -Neurology consulted appreciate recommendations, medication adjustments done -Swallow eval, failed. NPO for now. NGT placement if failure to place, plan for pEG placement -Continue lacosamide 100 mg, phenobarbital 60 mg every 8 hours, Dilantin 130 mg 3 times daily, valproate 500 mg every 8 hours -Ativan as needed -Seizure precaution -EEG Mild to moderate encephalopathy. Sleep state with asymmetric left hemispheric slowing and left frontal discharges. Reduced frequency and voltage compared to previous EEG. Clinical correlation. -Palliative care consulted. Appreciate recommendations. They have spoken with Brother James and yuly Milner for PEG placement if needed. Community-acquired pneumonia. Versus aspiration pneumonia -Chest x-ray with right lung parenchymal opacity. -On Unasyn and azithromycin -Monitor Hypothyroidism. Patient still in postictal state. Chronic. Continue home meds when tolerating p.o. COPD. Not in exacerbation. DVT Prop Lovenox Code Status: DNR Discussed Condition With: Patient, nursing, Dr. Asencio Discharge Planning: Plan to DC when clinically improved back to [facility].
[2018-02-04] MEDS: Enoxaparin Inj 30 MG/0.3 ML Syringe SQ SCH (15:09)
[2018-02-04] MEDS: Azithromycin Inj 250 MG in Sodium Chlor 0.9% Inj 250 ML IV.SIG SCH (16:38)
[2018-02-05] MEDS: Ampicillin/Sulbactam Inj 3 GM in Sodium Chloride 0.9% Inj 100 ML IV.SIG SCH ×5 (00:11→23:56)
[2018-02-05] MEDS: Valproate Inj 500 MG in Sodium Chlor 0.9% Inj 100 ML IV.SIG SCH ×4 (01:10→23:57)
[2018-02-05] MEDS: Sod Chloride 0.9% Inj 1,000 ML IV.CONT SCH ×2 (05:37→16:49)
[2018-02-05 10:02] LABS: Anion Gap 14 meq/L (5-15); Blood Urea Nitrogen 4 mg/dL (7-18); Calcium 8.1 mg/dL (8.5-10.1); Carbon Dioxide 19.1 meq/L (21.0-32.0); Chloride 106 meq/L (98-107); Glomerular Filtration Rate Greater Than 89 mL/min (>89); Glucose,Random 65 mg/dL (74-106); Potassium 3.6 meq/L (3.5-5.1)
[2018-02-05 10:06] LABS: Sodium 139 meq/L (136-145)
[2018-02-05] MEDS: Sertraline 100 MG Tablet NG/OG SCH (10:43)
[2018-02-05] MEDS: Enoxaparin Inj 30 MG/0.3 ML Syringe SQ SCH (10:44)
[2018-02-05] MEDS: Aspirin 325 MG Tablet NG/OG SCH (10:44)
[2018-02-05] MEDS: Divalproex 125 MG Sprinkles Capsule NG/OG SCH ×2 (10:44→21:36)
[2018-02-05] MEDS: Senna/Docusate Sodium 8.6/50 MG Tablet PO SCH ×2 (10:44→21:36)
[2018-02-05] MEDS: Lacosamide Inj 100 MG in Sodium Chlor 0.9% Inj 100 ML IV.SIG SCH ×2 (10:46→22:45)
--- NOTE | 2018-02-05 11:25 | P.PN ---
Subjective Interval history: Follow up for seizure, failure to thrive, pneumonia. The patient is awake, alert , says "good morning" and states she's doing "alright". She does not verbalize any other words despite multiple prompts. Follows simple commands. Going for peg placement today. RN reports one episode of vomiting this morning. No other events reported overnight. Vital signs reviewed and stable. Physical Exam Vital signs: Vital Signs 02/04/18 12:00 02/04/18 16:00 02/04/18 20:00 Temperature 97.2 F L 97.6 F 98.6 F Pulse Rate 74 67 65 Respiratory Rate 16 16 15 Blood Pressure 102/70 118/59 L 123/56 L Pulse Oximetry 100 99 100 02/05/18 00:00 02/05/18 01:33 02/05/18 03:37 Temperature 98.9 F 98.3 F Pulse Rate 57 L 62 Respiratory Rate 15 16 16 Blood Pressure 119/65 130/71 Pulse Oximetry 100 98 02/05/18 08:00 02/05/18 08:05 02/05/18 09:00 Temperature 97.6 F Pulse Rate 82 71 84 Respiratory Rate 16 18 Blood Pressure 114/61 Pulse Oximetry 93 L 02/05/18 09:33 Temperature Pulse Rate Respiratory Rate 18 Blood Pressure Pulse Oximetry Intake & Output 02/04/18 02/05/18 02/05/18 18:59 06:59 18:59 Intake Total 927.8 / 927.8 515 / 515 105 / 105 Output Total 700 / 700 450 / 450 Balance 227.8 / 227.8 65 / 65 105 / 105 Intake: IV 927.8 / 927.8 515 / 515 105 / 105 Unasyn Inj 3 GM In NS Inj 100 200 / 200 300 / 300 ML @ 200 mls/hr IV.SIG Q6H [facility] Rx#:[id number] Azithromycin Inj 250 MG In NS 250 / 250 Inj 250 ML @ 250 mls/hr IV.SIG Q24H [facility] Rx#:[id number] Vimpat Inj 100 MG In NS Inj 100 110 / 110 110 / 110 ML @ 110 mls/hr IV.SIG Q12HR [facility] Rx#:[id number] Dilantin Inj 130 MG In NS Inj 157.8 / 157.8 50 ML @ 300 mls/hr IV.SIG TID [facility] Rx#:[id number] Depacon Inj 500 MG In NS Inj 210 / 210 105 / 105 105 / 105 100 ML @ 105 mls/hr IV.SIG Q8H [facility] Rx#:[id number] Output: Urine Amount (Catheter) 700 / 700 450 / 450 Indwelling Urethral Catheter 700 / 700 450 / 450 Other: Date of Last Bowel Movement 02/03/18 02/03/18 02/03/18 Narrative: GENERAL: Elderly female patient in [facility]. SKIN: Warm and dry. No rash. HEENT: Normocephalic. Atraumatic. Pupils equal and round. Mucous membranes pink and moist. NECK: Supple. Trachea midline. CARDIOVASCULAR: Regular rate and rhythm. No murmur appreciated. RESPIRATORY: No accessory muscle use. Clear to auscultation. Breath sounds equal bilaterally. GASTROINTESTINAL: Abdomen soft, non-tender, nondistended. Normoactive bowel sounds x4. MUSCULOSKELETAL: No obvious deformities. Extremities without clubbing, cyanosis , or edema. NEUROLOGICAL: Awake and alert. Does not answer orientation questions. Minimal verbalization, and follows very simple commands. Right sided hemiparesis with contracture. Head tilted to the left. - Urinary Catheter Management Indwelling Urethral Catheter Cath placed during this visit: no Results - Labs CBC & Chem 7: 02/03/18 17:59 02/05/18 09:20 Laboratory Results - last 24 hr 02/04/18 02/05/18 02/05/18 11:06 08:13 09:20 Sodium 139 Potassium 3.6 Chloride 106 Carbon Dioxide 19.1 L Anion Gap 14 BUN 4 L Creatinine 0.17 L Estimated GFR Greater than 89 POC Glucose 89 Random Glucose 65 L Calcium 8.1 L Phenytoin 18.2 Microbiology 02/02/18 00:35 Blood - Peripheral Aerobic Blood Culture - Preliminary No growth in 3 days 02/02/18 00:35 Blood - Peripheral Anaerobic Blood Culture - Preliminary No growth in 3 days 02/02/18 00:25 Blood - Peripheral Aerobic Blood Culture - Preliminary No growth in 3 days 02/02/18 00:25 Blood - Peripheral Anaerobic Blood Culture - Preliminary No growth in 3 days - Procedures None Assessment and Plan - Assessment (1) Seizure Code(s): R56.9 - Unspecified convulsions Status: Acute - Plan 77-year-old female with a history of seizure disorder, brain tumor resection in [address] [facility] secondary to seizure. Seizure: with hx of brain tumor, on multiple antiepileptics -Neurology consulted appreciate assistance, medications adjusted -Continue lacosamide 100 mg, phenobarbital 60 mg every 8 hours, Dilantin 130 mg 3 times daily, valproate 500 mg every 8 hours -Ativan as needed -Seizure precaution -EEG with mild to moderate encephalopathy. Sleep state with asymmetric left hemispheric slowing and left frontal discharges. Reduced frequency and voltage compared to previous EEG. -follow dilantin levels, 18.2 today Failure to Thrive with Dysphagia: acute on chronic -patient failed swallow eval -palliative care consulted, they have spoken with brother James and ANDREAS Mora, agrees to PEG placement, going for procedure today 02/05 Aspiration Pneumonia: acute -CXR reviewed, shows right lung parenchymal opacity -Continue on antibiotics with IV Unasyn and IV Azithro -monitor for improvement Hypothyroidism: chronic -Continue home meds after peg placed COPD: chronic -Not in exacerbation. -Continue home meds as appropriate DVT Prophylaxis: Lovenox (on hold for procedure today) Discharge Planning: Discharge when tolerating tube feeds and cleared by neurology.
[2018-02-05 11:40] LABS: INR 1.2 Ratio
[2018-02-05] MEDS: SODIUM CHLOR 0.9% IV.SIG SCH (11:57)
[2018-02-05] MEDS: PHENYTOIN IV.SIG SCH (11:57)
[2018-02-05] MEDS ORDERED: fentaNYL Citrate Inj 250 MCG/5 ML Ampul ONE (12:48)
--- NOTE | 2018-02-05 14:45 | P.RAD ---
Post Procedure Progress Note - Pre Procedure Diagnosis (1) Chronic ischemic left MCA stroke - Post Procedure Diagnosis (1) Chronic ischemic left MCA stroke - Procedure Information Procedure Date: 02/05/18 Supervising Radiologist: Tyree Garcia Jr, MD Estimated blood loss (mL): 0 Anesthesia: Conscious Sedation - Plan of Activity Patient to Unit: [facility] Patient Condition: Good See PACS Report for procedural detail/treatment. Feeding Tube Feeding Tube: Gastrostomy Procedure: Placement Korean Tube Size: 18 Findings: G tube in good position.
--- NOTE | 2018-02-05 15:12 | IR ---
EXAM DATE: 02/05/2018 3:06 PM EDT AGE/SEX: 77 years / Female INDICATIONS: Patient presents with history of seizure disorder and brain tumor in need of G Tube for nutrition. CLINICAL DATA: This is the patient's initial encounter. Patient reports that signs and symptoms have been present for 1 day and indicates a pain score of 0/10. MEDICAL/SURGICAL HISTORY: Chronic obstructive pulmonary disease. Hypothyroidism. Anxiety Brain Tumor benign Calcium deficiency Cerebral infarct chronic pain Gout Hyperlipidemia Candidiasis of ski n and nails Hysterectomy. Tonsillectomy. Brain surgery COMPARISON: . FLUORO TIME (min): 4:39 IMAGE SERIES: SEDATION TIME (min): 45 CONTRAST (cc): 5cc Omnipaque (iohexol) 350 MEDICATION(S): 2.5mg midazolam (Versed) IV 125mcg fentanyl (Sublimaze) IV DEVICE(S): 18 Czech gastrostomy tube . . PROCEDURE: 1. Fluoroscopically guided gastrostomy tube placement. 2. Conscious sedation with continuous EKG and oximetry monitoring. The risks, benefits and alternatives to the procedure were explained and verbal and written consent w as obtained. The site was prepped in sterile fashion. Full sterile technique was used, including ca p, mask, sterile gloves and gown and a large sterile sheet. Hand hygiene and 2% chlorhexidine and/or betadine/alcohol prep was utilized per protocol for cutaneous antisepsis. The skin and subcutaneous tissues were infiltrated with local anesthetic solution. Fluoroscopy was used to noelle the position of the liver.. The stomach was insufflated with room air. Three percutaneous fasteners were placed to secure the anterior gastric wall. A small incision was made between the fasteners. The stomach was accessed with an 18 gauge needle. A n 0.035 wire was advanced into the small bowel. The tract was dilated. The gastrostomy tube was int roduced through a peel-away sheath. The position was confirmed with an injection of contrast. Conscious sedation was performed with the prescribed dosages and duration as above in the presence of an independent trained radiology nurse to assist in the monitoring of the patient. EKG and oximetry remained stable throughout the procedure. The patient tolerated the procedure well and there were n o complications. The patient was sent to post anesthesia recovery in stable condition. CONCLUSION: 1. Uncomplicated gastrostomy tube placement as above. Electronically signed by: Tyree Garcia MD 02/05/2018 3:10 PM EDT
--- NOTE | 2018-02-05 15:41 | P.PNNEU ---
Subjective Subjective Comments: No acute events reported No headache No chest pain No dyspnea Active Medications: Active Medications Acetylcysteine (Mucomyst 20% Neb) 3 ml NEB BID NEB [facility] Last Admin: 02/05/18 07:55 Dose: 3 ml Al Hydroxide/Mg Hydroxide (Milk Of Magnesia Liq) 30 ml PO Q12H PRN PRN Reason: Mild Constipation Albuterol (Duoneb Neb (Prn)) 1 ampul NEB Q4HR NEB PRN PRN Reason: SOB/WHEEZING Last Admin: 02/05/18 07:56 Dose: 1 ampul Aspirin (Aspirin) 81 mg NG/OG DAILY [facility] Last Admin: 02/05/18 10:44 Dose: Not Given Atorvastatin Calcium (Lipitor) 10 mg NG/OG DAILY [facility] Last Admin: 02/05/18 10:44 Dose: Not Given Bisacodyl (Dulcolax Supp) 10 mg RECTAL DAILY PRN PRN Reason: SEVERE CONSITIPATION Divalproex Sodium (Depakote Sprinkles) 500 mg NG/OG BID [facility] Last Admin: 02/05/18 10:44 Dose: Not Given Enoxaparin Sodium (Lovenox Inj) 30 mg SQ DAILY [facility] Last Admin: 02/05/18 10:44 Dose: Not Given Sodium Chloride (Ns Inj) 1,000 mls @ 100 mls/hr IV.CONT .Q10H [facility] Last Admin: 02/05/18 05:37 Dose: 100 mls/hr Azithromycin 250 mg/ Sodium (Chloride) 250 mls @ 250 mls/hr IV.SIG Q24H [facility] Last Infusion: 02/04/18 18:08 Dose: Infused Ampicillin Sodium/Sulbactam (Sodium 3 gm/ Sodium Chloride) 100 mls @ 200 mls/ hr IV.SIG Q6H [facility] Last Admin: 02/05/18 13:21 Dose: Not Given Valproate Sodium 500 mg/ (Sodium Chloride) 105 mls @ 105 mls/hr IV.SIG Q8H [facility] Last Infusion: 02/05/18 10:45 Dose: Infused Lacosamide 100 mg/ Sodium (Chloride) 110 mls @ 110 mls/hr IV.SIG Q12HR [facility] Last Infusion: 02/05/18 12:04 Dose: Infused Lactulose (Lactulose Liq) 30 ml PO DAILY PRN PRN Reason: SEVERE CONSITIPATION Lansoprazole (Prevacid Solutab) 30 mg NG/OG DAILY [facility] Last Admin: 02/05/18 10:43 Dose: Not Given Levothyroxine Sodium (Synthroid) 25 mcg NG/OG DAILY@0600 [facility] Last Admin: 02/05/18 05:37 Dose: Not Given Lorazepam (Ativan Inj) 1 mg IV.PUSH Q5M PRN PRN Reason: SEIZURE Last Admin: 02/03/18 13:55 Dose: 1 mg Metoclopramide HCl (Reglan Inj) 5 mg IV.PUSH Q8H PRN; Protocol PRN Reason: nausea/vomiting Phenobarbital Sodium (Luminal Inj) 60 mg IM Q8HR [facility] Last Admin: 02/05/18 07:37 Dose: 60 mg Phenytoin Sodium (Dilantin) 130 mg PO TID [facility] Last Admin: 02/02/18 13:43 Dose: Not Given Senna/Docusate Sodium (Deena-Colace) 1 tab PO BID [facility] Last Admin: 02/05/18 10:44 Dose: Not Given Sennosides (Senokot) 17.2 mg PO Q12H PRN PRN Reason: Moderate Constipation Sertraline HCl (Zoloft) 100 mg NG/OG DAILY [facility] Last Admin: 02/05/18 10:43 Dose: Not Given Tizanidine HCl (Zanaflex) 2 mg PO TID PRN PRN Reason: SPASM Allergies/Adverse Reactions: Allergies Allergy/AdvReac Type Severity Reaction Status Date / Time milk Allergy Unknown LACTOSE Verified 02/01/18 23:48 INTOLERANT chocolate flavor AdvReac Unknown "MAKES ME Verified 02/01/18 23:48 HYPER" MRI PRECAUTION AdvReac Severe SHUNT/ Uncoded 01/24/18 09:45 METAL CLIP IN BRAIN PER DR CLINE KD 06/15/08 *MDRO Multi-Drug Resistant AdvReac Unknown UNKNOWN Uncoded 01/24/18 09:45 Organism Review of Systems All other systems reviewed negative except as stated in HPI Physical Exam Vital signs: Vital Signs 02/04/18 16:00 02/04/18 20:00 02/05/18 00:00 Temperature 97.6 F 98.6 F 98.9 F Pulse Rate 67 65 57 L Respiratory Rate 16 15 15 Blood Pressure 118/59 L 123/56 L 119/65 Pulse Oximetry 99 100 100 02/05/18 01:33 02/05/18 03:37 02/05/18 08:00 Temperature 98.3 F 97.6 F Pulse Rate 62 82 Respiratory Rate 16 16 16 Blood Pressure 130/71 114/61 Pulse Oximetry 98 93 L 02/05/18 08:05 02/05/18 09:00 02/05/18 09:33 Temperature Pulse Rate 71 84 Respiratory Rate 18 18 Blood Pressure Pulse Oximetry 02/05/18 11:51 Temperature 97.5 F L Pulse Rate 71 Respiratory Rate 18 Blood Pressure 149/71 H Pulse Oximetry 98 Intake & Output 02/04/18 02/05/18 02/05/18 18:59 06:59 18:59 Intake Total 927.8 / 927.8 515 / 515 267.6 / 267.6 Output Total 700 / 700 450 / 450 Balance 227.8 / 227.8 65 / 65 267.6 / 267.6 Intake: IV 927.8 / 927.8 515 / 515 267.6 / 267.6 Unasyn Inj 3 GM In NS Inj 100 200 / 200 300 / 300 ML @ 200 mls/hr IV.SIG Q6H [facility] Rx#:[id number] Azithromycin Inj 250 MG In NS 250 / 250 Inj 250 ML @ 250 mls/hr IV.SIG Q24H [facility] Rx#:[id number] Vimpat Inj 100 MG In NS Inj 100 110 / 110 110 / 110 110 / 110 ML @ 110 mls/hr IV.SIG Q12HR [facility] Rx#:[id number] Dilantin Inj 130 MG In NS Inj 157.8 / 157.8 52.6 / 52.6 50 ML @ 300 mls/hr IV.SIG TID [facility] Rx#:[id number] Depacon Inj 500 MG In NS Inj 210 / 210 105 / 105 105 / 105 100 ML @ 105 mls/hr IV.SIG Q8H [facility] Rx#:[id number] Output: Urine Amount (Catheter) 700 / 700 450 / 450 Indwelling Urethral Catheter 700 / 700 450 / 450 Other: Date of Last Bowel Movement 02/03/18 02/03/18 02/03/18 Narrative: GENERAL: This is a well-nourished, well-developed patient, in no apparent distress. SKIN: Warm and dry HEENT: Normocephalic. Pupils equal round and reactive. Nose without bleeding. Airway patent. NECK: Trachea midline. Left leaning. CARDIOVASCULAR: Regular rate and rhythm without murmurs, RESPIRATORY: Clear to auscultation. GASTROINTESTINAL: Abdomen soft, non-tender, nondistended. MUSCULOSKELETAL: Extremities without clubbing, cyanosis, or edema. NEUROLOGICAL: Awake and alert. Oriented to self, responds to name call. Minimal verbalization. Follows simple commands Awake alert oriented 1 to self dysarthric dysphonic speech with right spastic hemiparesis left head tilt follow simple motor requests with her left side no involuntary movements no jerking - Constitutional no acute distress - Routine HEENT Exam Head: Present: normocephalic Eye: Present: EOMI - Urinary Catheter Management Indwelling Urethral Catheter Cath placed during this visit: no Objective Laboratory Results - last 24 hr 02/05/18 02/05/18 02/05/18 08:13 09:20 10:25 PT INR APTT 20.3 L Sodium 139 Potassium 3.6 Chloride 106 Carbon Dioxide 19.1 L Anion Gap 14 BUN 4 L Creatinine 0.17 L Estimated GFR Greater than 89 POC Glucose 89 Random Glucose 65 L Calcium 8.1 L Phenytoin 02/05/18 02/05/18 10:25 11:25 PT 12.0 H INR 1.2 APTT Sodium Potassium Chloride Carbon Dioxide Anion Gap BUN Creatinine Estimated GFR POC Glucose Random Glucose Calcium Phenytoin 22.2 H Microbiology 02/02/18 00:35 Aerobic Blood Culture - Preliminary Blood - Peripheral No growth in 3 days Anaerobic Blood Culture - Preliminary No growth in 3 days 02/02/18 00:25 Aerobic Blood Culture - Preliminary Blood - Peripheral No growth in 3 days Anaerobic Blood Culture - Preliminary No growth in 3 days Review/Management - Diagnosis (1) Chronic ischemic left MCA stroke Code(s): I69.30 - Unspecified sequelae of cerebral infarction Status: Acute Current Visit: Yes (2) [employer] (ventriculoperitoneal) shunt status Code(s): Z98.2 - Presence of cerebrospinal fluid drainage device Status: Acute Current Visit: Yes (3) Seizure Code(s): R56.9 - Unspecified convulsions Status: Acute Current Visit: Yes (4) Bed confinement status Code(s): Z74.01 - Bed confinement status Status: Acute Current Visit: Yes - Review/Management Plan: Breakthrough seizure patient is bedbound with apparent underlying dementia Subtherapeutic Dilantin level Patient is afebrile without leukocytosis Follow-up EEG improved Seizure medication levels reviewed Recommendations Hold Dilantin Follow exam
[2018-02-05] MEDS: Azithromycin Inj 250 MG in Sodium Chlor 0.9% Inj 250 ML IV.SIG SCH (19:37)
[2018-02-06] MEDS: Sod Chloride 0.9% Inj 1,000 ML IV.CONT SCH ×3 (05:33→21:44)
[2018-02-06] MEDS: Ampicillin/Sulbactam Inj 3 GM in Sodium Chloride 0.9% Inj 100 ML IV.SIG SCH ×3 (05:34→20:00)
--- NOTE | 2018-02-06 07:42 | P.PNNEU ---
Subjective Subjective Comments: No acute events reported No headache No chest pain No dyspnea Active Medications: Active Medications Acetylcysteine (Mucomyst 20% Neb) 3 ml NEB BID NEB [facility] Last Admin: 02/05/18 07:55 Dose: 3 ml Al Hydroxide/Mg Hydroxide (Milk Of Magnesia Liq) 30 ml PO Q12H PRN PRN Reason: Mild Constipation Albuterol (Duoneb Neb (Prn)) 1 ampul NEB Q4HR NEB PRN PRN Reason: SOB/WHEEZING Last Admin: 02/05/18 07:56 Dose: 1 ampul Aspirin (Aspirin) 81 mg NG/OG DAILY [facility] Last Admin: 02/05/18 10:44 Dose: Not Given Atorvastatin Calcium (Lipitor) 10 mg NG/OG DAILY [facility] Last Admin: 02/05/18 10:44 Dose: Not Given Bisacodyl (Dulcolax Supp) 10 mg RECTAL DAILY PRN PRN Reason: SEVERE CONSITIPATION Divalproex Sodium (Depakote Sprinkles) 500 mg NG/OG BID [facility] Last Admin: 02/05/18 21:36 Dose: 500 mg Enoxaparin Sodium (Lovenox Inj) 30 mg SQ DAILY [facility] Last Admin: 02/05/18 10:44 Dose: Not Given Sodium Chloride (Ns Inj) 1,000 mls @ 100 mls/hr IV.CONT .Q10H [facility] Last Admin: 02/06/18 05:33 Dose: 100 mls/hr Azithromycin 250 mg/ Sodium (Chloride) 250 mls @ 250 mls/hr IV.SIG Q24H [facility] Last Infusion: 02/05/18 21:37 Dose: Infused Ampicillin Sodium/Sulbactam (Sodium 3 gm/ Sodium Chloride) 100 mls @ 200 mls/ hr IV.SIG Q6H [facility] Last Infusion: 02/06/18 06:54 Dose: Infused Valproate Sodium 500 mg/ (Sodium Chloride) 105 mls @ 105 mls/hr IV.SIG Q8H [facility] Last Infusion: 02/06/18 00:59 Dose: Infused Lacosamide 100 mg/ Sodium (Chloride) 110 mls @ 110 mls/hr IV.SIG Q12HR [facility] Last Infusion: 02/05/18 23:45 Dose: Infused Lactulose (Lactulose Liq) 30 ml PO DAILY PRN PRN Reason: SEVERE CONSITIPATION Lansoprazole (Prevacid Solutab) 30 mg NG/OG DAILY [facility] Last Admin: 02/05/18 10:43 Dose: Not Given Levothyroxine Sodium (Synthroid) 25 mcg NG/OG DAILY@0600 [facility] Last Admin: 02/06/18 05:34 Dose: 25 mcg Lorazepam (Ativan Inj) 1 mg IV.PUSH Q5M PRN PRN Reason: SEIZURE Last Admin: 02/03/18 13:55 Dose: 1 mg Metoclopramide HCl (Reglan Inj) 5 mg IV.PUSH Q8H PRN; Protocol PRN Reason: nausea/vomiting Phenobarbital Sodium (Luminal Inj) 60 mg IM Q8HR [facility] Last Admin: 02/06/18 05:33 Dose: 60 mg Phenytoin Sodium (Dilantin) 130 mg PO TID [facility] Last Admin: 02/02/18 13:43 Dose: Not Given Senna/Docusate Sodium (Deena-Colace) 1 tab PO BID [facility] Last Admin: 02/05/18 21:36 Dose: 1 tab Sennosides (Senokot) 17.2 mg PO Q12H PRN PRN Reason: Moderate Constipation Sertraline HCl (Zoloft) 100 mg NG/OG DAILY [facility] Last Admin: 02/05/18 10:43 Dose: Not Given Tizanidine HCl (Zanaflex) 2 mg PO TID PRN PRN Reason: SPASM Allergies/Adverse Reactions: Allergies Allergy/AdvReac Type Severity Reaction Status Date / Time milk Allergy Unknown LACTOSE Verified 02/01/18 23:48 INTOLERANT chocolate flavor AdvReac Unknown "MAKES ME Verified 02/01/18 23:48 HYPER" MRI PRECAUTION AdvReac Severe SHUNT/ Uncoded 01/24/18 09:45 METAL CLIP IN BRAIN PER DR CLINE KD 06/15/08 *MDRO Multi-Drug Resistant AdvReac Unknown UNKNOWN Uncoded 01/24/18 09:45 Organism Review of Systems All other systems reviewed negative except as stated in HPI Physical Exam Vital signs: Vital Signs 02/05/18 08:00 02/05/18 08:05 02/05/18 09:00 Temperature 97.6 F Pulse Rate 82 71 84 Respiratory Rate 16 18 Blood Pressure 114/61 Pulse Oximetry 93 L 02/05/18 09:33 02/05/18 11:51 07/24/18 14:45 Temperature 97.5 F L 97.6 F Pulse Rate 71 73 Respiratory Rate 18 18 20 Blood Pressure 149/71 H 139/73 Pulse Oximetry 98 99 02/05/18 15:00 02/05/18 15:30 02/05/18 16:58 Temperature 97.5 F L Pulse Rate 73 63 68 Respiratory Rate 20 20 20 Blood Pressure 139/73 119/63 146/66 H Pulse Oximetry 99 100 100 02/05/18 20:00 02/06/18 00:00 02/06/18 03:47 Temperature 98.2 F 98 F Pulse Rate 75 73 Respiratory Rate 18 18 18 Blood Pressure 163/74 H 158/72 H Pulse Oximetry 99 99 Intake & Output 02/05/18 02/06/18 02/06/18 18:59 06:59 18:59 Intake Total 1267.6 / 1267.6 1870 / 1870 Output Total 1100 / 1100 800 / 800 Balance 167.6 / 167.6 1070 / 1070 Intake: IV 1267.6 / 1267.6 1870 / 1870 NS Inj 1,000 ML @ 100 mls/hr IV 1000 / 1000 1000 / 1000 .CONT .Q10H [facility] Rx#:[id number] Unasyn Inj 3 GM In NS Inj 100 300 / 300 ML @ 200 mls/hr IV.SIG Q6H [facility] Rx#:[id number] Azithromycin Inj 250 MG In NS 250 / 250 Inj 250 ML @ 250 mls/hr IV.SIG Q24H [facility] Rx#:[id number] Vimpat Inj 100 MG In NS Inj 100 110 / 110 110 / 110 ML @ 110 mls/hr IV.SIG Q12HR [facility] Rx#:[id number] Dilantin Inj 130 MG In NS Inj 52.6 / 52.6 50 ML @ 300 mls/hr IV.SIG TID [facility] Rx#:[id number] Depacon Inj 500 MG In NS Inj 105 / 105 210 / 210 100 ML @ 105 mls/hr IV.SIG Q8H [facility] Rx#:[id number] Output: Urine 1100 / 1100 Urine Amount (Catheter) 800 / 800 Indwelling Urethral Catheter 800 / 800 Other: Date of Last Bowel Movement 02/03/18 02/03/18 Narrative: GENERAL: Elderly female patient in NAD. SKIN: Warm and dry. No rash. HEENT: Normocephalic. Atraumatic. Pupils equal and round. NECK: Supple. Trachea midline. CARDIOVASCULAR: Regular rate and rhythm. No murmur appreciated. RESPIRATORY: No accessory muscle use. Clear to auscultation. Breath sounds equal bilaterally. GASTROINTESTINAL: Abdomen soft, non-tender, nondistended. MUSCULOSKELETAL: le contracture NEUROLOGICAL: Awake and alert. Moderately dysarthric speech and dysphonic, and follows very simple commands. Right sided hemiparesis with contracture. Head tilted to the left. - Constitutional no acute distress - Routine HEENT Exam Head: Present: normocephalic Eye: Present: EOMI - Urinary Catheter Management Indwelling Urethral Catheter Cath placed during this visit: no Objective Laboratory Results - last 24 hr 02/05/18 02/05/18 02/05/18 08:13 09:20 10:25 PT INR APTT 20.3 L Sodium 139 Potassium 3.6 Chloride 106 Carbon Dioxide 19.1 L Anion Gap 14 BUN 4 L Creatinine 0.17 L Estimated GFR Greater than 89 POC Glucose 89 Random Glucose 65 L Calcium 8.1 L Phenytoin Phenobarbital 02/05/18 02/05/18 02/05/18 10:25 11:25 18:02 PT 12.0 H INR 1.2 APTT Sodium Potassium Chloride Carbon Dioxide Anion Gap BUN Creatinine Estimated GFR POC Glucose Random Glucose Calcium Phenytoin 22.2 H Phenobarbital 5.1 L Microbiology 02/02/18 00:35 Aerobic Blood Culture - Preliminary Blood - Peripheral No growth in 3 days Anaerobic Blood Culture - Preliminary No growth in 3 days 02/02/18 00:25 Aerobic Blood Culture - Preliminary Blood - Peripheral No growth in 3 days Anaerobic Blood Culture - Preliminary No growth in 3 days Review/Management - Diagnosis (1) Chronic ischemic left MCA stroke Code(s): I69.30 - Unspecified sequelae of cerebral infarction Status: Acute Current Visit: Yes (2) WHEAT CLEANER (ventriculoperitoneal) shunt status Code(s): Z98.2 - Presence of cerebrospinal fluid drainage device Status: Acute Current Visit: Yes (3) Seizure Code(s): R56.9 - Unspecified convulsions Status: Acute Current Visit: Yes (4) Bed confinement status Code(s): Z74.01 - Bed confinement status Status: Acute Current Visit: Yes - Review/Management Plan: Breakthrough seizure patient is bedbound with apparent underlying dementia Subtherapeutic Dilantin level Patient is afebrile without leukocytosis Follow-up EEG improved Seizure medication levels reviewed Recommendations Hold Dilantin Continue Depakote and Vimpat Speech evaluation May require PEG tube Follow exam
[2018-02-06] MEDS: Enoxaparin Inj 30 MG/0.3 ML Syringe SQ SCH (09:34)
[2018-02-06] MEDS: Sertraline 100 MG Tablet NG/OG SCH (09:34)
[2018-02-06] MEDS: Divalproex 125 MG Sprinkles Capsule NG/OG SCH ×2 (09:34→21:44)
[2018-02-06] MEDS: Valproate Inj 500 MG in Sodium Chlor 0.9% Inj 100 ML IV.SIG SCH ×2 (09:35→17:24)
[2018-02-06] MEDS: Aspirin 325 MG Tablet NG/OG SCH (09:35)
[2018-02-06] MEDS: Senna/Docusate Sodium 8.6/50 MG Tablet PO SCH ×2 (09:36→21:44)
[2018-02-06] MEDS: Lacosamide Inj 100 MG in Sodium Chlor 0.9% Inj 100 ML IV.SIG SCH ×2 (10:52→21:43)
--- NOTE | 2018-02-06 12:11 | P.PNIM ---
Subjective Interval history: Patient is resting comfortably in bed. She had a G-tube placed yesterday. Initiation of diet will occur today. Patient has had poor p.o. intake. Relatively low blood sugars present this morning but this should be improved with initiation of tube feeds. Physical Exam Vital signs: Vital Signs 02/05/18 14:45 02/05/18 15:00 02/05/18 15:30 Temperature 97.6 F Pulse Rate 73 73 63 Respiratory Rate 20 20 20 Blood Pressure 139/73 139/73 119/63 Pulse Oximetry 99 99 100 02/05/18 16:58 02/05/18 20:00 02/06/18 00:00 Temperature 97.5 F L 98.2 F 98 F Pulse Rate 68 75 73 Respiratory Rate 20 18 18 Blood Pressure 146/66 H 163/74 H 158/72 H Pulse Oximetry 100 99 99 02/06/18 03:47 02/06/18 04:00 02/06/18 08:00 Temperature 97.7 F 98.7 F Pulse Rate 65 72 Respiratory Rate 18 18 18 Blood Pressure 141/64 H 157/71 H Pulse Oximetry 94 L 98 Intake & Output 02/05/18 02/06/18 02/06/18 18:59 06:59 18:59 Intake Total 1267.6 / 1267.6 1870 / 1870 Output Total 1100 / 1100 800 / 800 700 / 700 Balance 167.6 / 167.6 1070 / 1070 -700 / -700 Weight 50.7 kg Intake: IV 1267.6 / 1267.6 1870 / 1870 NS Inj 1,000 ML @ 100 mls/hr IV 1000 / 1000 1000 / 1000 .CONT .Q10H [facility] Rx#:[id number] Unasyn Inj 3 GM In NS Inj 100 300 / 300 ML @ 200 mls/hr IV.SIG Q6H [facility] Rx#:[id number] Azithromycin Inj 250 MG In NS 250 / 250 Inj 250 ML @ 250 mls/hr IV.SIG Q24H [facility] Rx#:[id number] Vimpat Inj 100 MG In NS Inj 100 110 / 110 110 / 110 ML @ 110 mls/hr IV.SIG Q12HR [facility] Rx#:[id number] Dilantin Inj 130 MG In NS Inj 52.6 / 52.6 50 ML @ 300 mls/hr IV.SIG TID [facility] Rx#:[id number] Depacon Inj 500 MG In NS Inj 105 / 105 210 / 210 100 ML @ 105 mls/hr IV.SIG Q8H [facility] Rx#:[id number] Output: Urine 1100 / 1100 700 / 700 Urine Amount (Catheter) 800 / 800 Indwelling Urethral Catheter 800 / 800 Other: Date of Last Bowel Movement 02/03/18 02/03/18 Narrative: GENERAL: NAD, A&Ox1, nonverbal HEAD: Normocephalic. NECK: Supple, trachea midline. No lymphadenopathy. EYES: No scleral icterus. No injection or drainage. CARDIOVASCULAR: Regular rate and rhythm without murmurs, gallops, or rubs. RESPIRATORY: Breath sounds equal bilaterally. No accessory muscle use. GASTROINTESTINAL: Abdomen soft, non-tender, nondistended. MUSCULOSKELETAL: No cyanosis, or edema. SKIN: Warm and dry. NEURO: No focal neurological deficits. - Urinary Catheter Management Indwelling Urethral Catheter Cath placed during this visit: no Results - Labs CBC & Chem 7: 02/03/18 17:59 02/05/18 09:20 Laboratory Results - last 24 hr 02/05/18 02/05/18 11:25 18:02 Phenytoin 22.2 H Phenobarbital 5.1 L Microbiology 02/02/18 00:35 Blood - Peripheral Aerobic Blood Culture - Preliminary No growth in 4 days 02/02/18 00:35 Blood - Peripheral Anaerobic Blood Culture - Preliminary No growth in 4 days 02/02/18 00:25 Blood - Peripheral Aerobic Blood Culture - Preliminary No growth in 4 days 02/02/18 00:25 Blood - Peripheral Anaerobic Blood Culture - Preliminary No growth in 4 days - Imaging Impressions Gastrostomy Tube Placement 02/05/18 00:00 CONCLUSION: 1. Uncomplicated gastrostomy tube placement as above. - Procedures None Assessment and Plan - Assessment (1) Seizure Code(s): R56.9 - Unspecified convulsions Status: Acute - Plan 77-year-old female with a history of brain cancer admitted secondary to seizures , failure to thrive, and aspiration pneumonia Seizure History of brain tumor Treatments are addressed Neurology following Continue to monitor for any recurrence of seizure Aspiration pneumonia Continue Unasyn and azithromycin Follow clinically Oxygen as needed Failure to thrive Poor p.o. intake Patient failed swallow evaluation PEG tube placed 02/05/2018 Tube feeds initiated 02/06/2018 Advance tube feeds as tolerated to a rate of 50 mm/h Hypothyroidism Continue supplementation via PEG COPD No exacerbation Continue baseline treatment DVT prophylaxis Lovenox
--- NOTE | 2018-02-06 15:21 | P.DIET ---
Nutritional Evaluation Type of nutrition evaluation: initial Nutrition consult regarding: Tube Feeding Subjective Subjective Comments: Pt is from [facility] and is wheelchair bound. Objective - Diagnosis Seizure, prolonged post ictal phase - Objective % IBW: 97 (IBW = 115#) Body Weight Used for Calculations: Actual (50.7 kg) Energy Needs - Lower Range (kCal/kg): 25 Energy Needs - Upper Range (kCal/kg): 30 Lower Limit kCal/kg (kCals): 1,268 Upper Limit kCal/kg (kCals): 1,521 Lower Limit Protein Factor (Grams per Kg): 1.0 Upper Limit Protein Factor (Grams per Kg): 1.5 Lower Protein Needs (Protein): 51 Upper Protein Needs (Protein): 76 Dietitian Reviewed in Medical Record: Current diet, Curent medications, Intake & Output, Labs, Medical history, Tube feeding Speech Therapy Recommendations: Yes (pureed, honey thickened liqs) Feeding - Current Tube Feeding Medications That Affect Tube Feeding Run Time: Synthroid, Dilantin Total Time Off: 6 hours Assessment Assessment: Pt had g-tube placed yesterday and TF is to be started today. Current TF order is for Jevity 1.5 @ 50 mls/hr. It is noted that the pt receives Synthroid and Dilantin and TF needs to be held one hour before and after each of these meds are given. Jevity 1.5 @ 50 mls/hr x 18 hrs will provide 1350 kcals, 57 gms protein and 684 mls of free water. Will monitor diet advance. Recommendations: 1. Jevity 1.5 @ 50 mls/hr goal 2. Hold TF before and after Dilantin and Synthroid 3. Advance diet per ST
[2018-02-06] MEDS: Azithromycin Inj 250 MG in Sodium Chlor 0.9% Inj 250 ML IV.SIG SCH (18:44)
[2018-02-07] MEDS: Ampicillin/Sulbactam Inj 3 GM in Sodium Chloride 0.9% Inj 100 ML IV.SIG SCH ×4 (01:13→18:15)
[2018-02-07] MEDS: Valproate Inj 500 MG in Sodium Chlor 0.9% Inj 100 ML IV.SIG SCH ×3 (01:13→15:30)
[2018-02-07 08:05] LABS: Baso % (Auto) 0.6 % (0.0-2.0); Eos % (Auto) 0.3 % (0.0-4.0); Hematocrit 38.9 % (35.0-46.0); Lymph # (Auto) 0.6 th/mm3 (1.0-4.8); Lymph % (Auto) 19.5 % (9.0-44.0); Mean Corpuscular HGB Conc 33.4 % (32.0-36.0); Mean Corpuscular Hemoglobin 30.9 pg (27.0-34.0); Mean Corpuscular Volume 92.6 fL (80.0-100.0); Mean Platelet Volume 8.4 fL (7.0-11.0); Mono # (Auto) 0.4 th/mm3 (0.0-0.9); Mono % (Auto) 12.5 % (0.0-8.0); Neut # (Auto) 2.1 th/mm3 (1.8-7.7); Neut % (Auto) 67.1 % (16.0-70.0); Platelet Count 208 th/mm3 (150-450); Red Blood Count 4.21 mil/mm3 (4.00-5.30); Red Cell Distribution Width 14.1 % (11.6-17.2); White Blood Count 3.1 th/mm3 (4.0-11.0)
[2018-02-07] MEDS: Sertraline 100 MG Tablet NG/OG SCH (08:40)
[2018-02-07] MEDS: Divalproex 125 MG Sprinkles Capsule NG/OG SCH ×2 (08:40→21:54)
[2018-02-07] MEDS: Senna/Docusate Sodium 8.6/50 MG Tablet PO SCH ×2 (08:40→21:54)
[2018-02-07] MEDS: Enoxaparin Inj 30 MG/0.3 ML Syringe SQ SCH (08:42)
[2018-02-07] MEDS: Aspirin 325 MG Tablet NG/OG SCH (08:42)
[2018-02-07 09:09] LABS: Alanine Aminotransferase 13 U/L (10-53); Albumin 2.4 g/dL (3.4-5.0); Alkaline Phosphatase 108 U/L (45-117); Anion Gap 6 meq/L (5-15); Aspartate Aminotransferase 14 U/L (15-37); Blood Urea Nitrogen 5 mg/dL (7-18); Calcium 7.7 mg/dL (8.5-10.1); Chloride 101 meq/L (98-107); Glomerular Filtration Rate Greater Than 89 mL/min (>89); Glucose,Random 93 mg/dL (74-106); Sodium 139 meq/L (136-145); Total Protein 5.7 g/dL (6.4-8.2)
[2018-02-07 09:11] LABS: Potassium 2.9 meq/L (3.5-5.1)
--- NOTE | 2018-02-07 09:25 | P.PNNEU ---
Subjective Subjective Comments: No acute events reported No headache No chest pain No dyspnea Active Medications: Active Medications Al Hydroxide/Mg Hydroxide (Milk Of Magnesia Liq) 30 ml PO Q12H PRN PRN Reason: Mild Constipation Albuterol (Duoneb Neb (Prn)) 1 ampul NEB Q4HR NEB PRN PRN Reason: SOB/WHEEZING Last Admin: 02/05/18 07:56 Dose: 1 ampul Aspirin (Aspirin) 81 mg NG/OG DAILY [facility] Last Admin: 02/07/18 08:42 Dose: 81 mg Atorvastatin Calcium (Lipitor) 10 mg NG/OG DAILY [facility] Last Admin: 02/07/18 08:41 Dose: 10 mg Bisacodyl (Dulcolax Supp) 10 mg RECTAL DAILY PRN PRN Reason: SEVERE CONSITIPATION Divalproex Sodium (Depakote Sprinkles) 500 mg NG/OG BID [facility] Last Admin: 02/07/18 08:40 Dose: 500 mg Enoxaparin Sodium (Lovenox Inj) 30 mg SQ DAILY [facility] Last Admin: 02/07/18 08:42 Dose: 30 mg Sodium Chloride (Ns Inj) 1,000 mls @ 100 mls/hr IV.CONT .Q10H [facility] Last Admin: 02/06/18 21:44 Dose: 100 mls/hr Azithromycin 250 mg/ Sodium (Chloride) 250 mls @ 250 mls/hr IV.SIG Q24H [facility] Last Admin: 02/06/18 18:44 Dose: 250 mls/hr Ampicillin Sodium/Sulbactam (Sodium 3 gm/ Sodium Chloride) 100 mls @ 200 mls/ hr IV.SIG Q6H [facility] Last Admin: 02/07/18 06:08 Dose: 200 mls/hr Valproate Sodium 500 mg/ (Sodium Chloride) 105 mls @ 105 mls/hr IV.SIG Q8H [facility] Last Admin: 02/07/18 01:13 Dose: 105 mls/hr Lacosamide 100 mg/ Sodium (Chloride) 110 mls @ 110 mls/hr IV.SIG Q12HR [facility] Last Admin: 02/06/18 21:43 Dose: 110 mls/hr Lactulose (Lactulose Liq) 30 ml PO DAILY PRN PRN Reason: SEVERE CONSITIPATION Lansoprazole (Prevacid Solutab) 30 mg NG/OG DAILY [facility] Last Admin: 02/07/18 08:40 Dose: 30 mg Levothyroxine Sodium (Synthroid) 25 mcg NG/OG DAILY@0600 [facility] Last Admin: 02/07/18 06:08 Dose: 25 mcg Lorazepam (Ativan Inj) 1 mg IV.PUSH Q5M PRN PRN Reason: SEIZURE Last Admin: 02/03/18 13:55 Dose: 1 mg Metoclopramide HCl (Reglan Inj) 5 mg IV.PUSH Q8H PRN; Protocol PRN Reason: nausea/vomiting Phenobarbital Sodium (Luminal Inj) 60 mg IM Q8HR [facility] Last Admin: 02/07/18 06:08 Dose: 60 mg Phenytoin Sodium (Dilantin) 130 mg PO TID [facility] Last Admin: 02/02/18 13:43 Dose: Not Given Senna/Docusate Sodium (Deena-Colace) 1 tab PO BID [facility] Last Admin: 02/07/18 08:40 Dose: 1 tab Sennosides (Senokot) 17.2 mg PO Q12H PRN PRN Reason: Moderate Constipation Sertraline HCl (Zoloft) 100 mg NG/OG DAILY [facility] Last Admin: 02/07/18 08:40 Dose: 100 mg Tizanidine HCl (Zanaflex) 2 mg PO TID PRN PRN Reason: SPASM Allergies/Adverse Reactions: Allergies Allergy/AdvReac Type Severity Reaction Status Date / Time milk Allergy Unknown LACTOSE Verified 02/01/18 23:48 INTOLERANT chocolate flavor AdvReac Unknown "MAKES ME Verified 02/01/18 23:48 HYPER" MRI PRECAUTION AdvReac Severe SHUNT/ Uncoded 01/24/18 09:45 METAL CLIP IN BRAIN PER DR CLINE KD 06/15/08 *MDRO Multi-Drug Resistant AdvReac Unknown UNKNOWN Uncoded 01/24/18 09:45 Organism Physical Exam Vital signs: Vital Signs 02/06/18 12:00 02/06/18 18:00 02/06/18 20:00 Temperature 98.4 F 98.4 F 98.4 F Pulse Rate 69 71 75 Respiratory Rate 18 18 18 Blood Pressure 143/68 H 162/74 H 165/67 H Pulse Oximetry 98 98 99 02/07/18 00:00 02/07/18 07:46 Temperature 98 F 98.5 F Pulse Rate 72 72 Respiratory Rate 18 18 Blood Pressure 170/76 H 107/60 Pulse Oximetry 97 99 Intake & Output 02/06/18 02/07/18 02/07/18 18:59 06:59 18:59 Intake Total 1420 / 1420 200 / 200 Output Total 1350 / 1350 1000 / 1000 Balance 70 / 70 -800 / -800 Weight 50.7 kg Intake: IV 1420 / 1420 200 / 200 NS Inj 1,000 ML @ 100 mls/hr IV 1000 / 1000 .CONT .Q10H [facility] Rx#:[id number] Unasyn Inj 3 GM In NS Inj 100 100 / 100 200 / 200 ML @ 200 mls/hr IV.SIG Q6H [facility] Rx#:[id number] Vimpat Inj 100 MG In NS Inj 100 110 / 110 ML @ 110 mls/hr IV.SIG Q12HR [facility] Rx#:[id number] Depacon Inj 500 MG In NS Inj 210 / 210 100 ML @ 105 mls/hr IV.SIG Q8H [facility] Rx#:[id number] Output: Urine 1350 / 1350 1000 / 1000 Other: Date of Last Bowel Movement 02/03/18 Narrative: GENERAL: NAD, A&Ox1, nonverbal HEAD: Normocephalic. NECK: Supple, trachea midline. No lymphadenopathy. EYES: No scleral icterus. No injection or drainage. CARDIOVASCULAR: Regular rate and rhythm RESPIRATORY: Mild coarseness at bases shallow breathing GASTROINTESTINAL: Abdomen soft, non-tender, nondistended. MUSCULOSKELETAL: No cyanosis, or edema. SKIN: Warm and dry. NEURO: Awake alert oriented 1. Follows. Severely dysphonic speech disfluency. Left head tilt. 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 with lower extremity contraction boots in place - Constitutional no acute distress - Routine HEENT Exam Head: Present: normocephalic - Urinary Catheter Management Indwelling Urethral Catheter Cath placed during this visit: no Objective Laboratory Results - last 24 hr 02/06/18 02/06/18 02/06/18 11:44 14:59 15:25 WBC RBC Hgb Hct MCV MCH MCHC RDW Plt Count MPV Neut % (Auto) Lymph % (Auto) [place] % (Auto) Eos % (Auto) Baso % (Auto) Neut # (Auto) Lymph # (Auto) [place] # (Auto) Eos # (Auto) Baso # (Auto) WBC Differential Differential Comment Sodium Potassium Chloride Carbon Dioxide Anion Gap BUN Creatinine Estimated GFR POC Glucose 85 Random Glucose Calcium Total Bilirubin AST ALT Alkaline Phosphatase Total Protein Albumin Phenytoin 12.8 Phenobarbital 9.7 L 02/07/18 02/07/18 07:27 07:27 WBC 3.1 L RBC 4.21 Hgb 13.0 Hct 38.9 MCV 92.6 MCH 30.9 MCHC 33.4 RDW 14.1 Plt Count 208 D MPV 8.4 Neut % (Auto) 67.1 Lymph % (Auto) 19.5 [place] % (Auto) 12.5 H Eos % (Auto) 0.3 Baso % (Auto) 0.6 Neut # (Auto) 2.1 Lymph # (Auto) 0.6 L [place] # (Auto) 0.4 Eos # (Auto) 0.0 Baso # (Auto) 0.0 WBC Differential . Differential Comment Auto diff final Sodium 139 Potassium 2.9 L* Chloride 101 Carbon Dioxide 32.0 D Anion Gap 6 BUN 5 L Creatinine 0.27 L Estimated GFR Greater than 89 POC Glucose Random Glucose 93 Calcium 7.7 L Total Bilirubin 0.2 AST 14 L ALT 13 Alkaline Phosphatase 108 Total Protein 5.7 L D Albumin 2.4 L Phenytoin Phenobarbital Microbiology 02/02/18 00:35 Aerobic Blood Culture - Preliminary Blood - Peripheral No growth in 4 days Anaerobic Blood Culture - Preliminary No growth in 4 days 02/02/18 00:25 Aerobic Blood Culture - Preliminary Blood - Peripheral No growth in 4 days Anaerobic Blood Culture - Preliminary No growth in 4 days Review/Management - Diagnosis (1) Chronic ischemic left MCA stroke Code(s): I69.30 - Unspecified sequelae of cerebral infarction Status: Acute Current Visit: Yes (2) CUTTER INSPECTOR (ventriculoperitoneal) shunt status Code(s): Z98.2 - Presence of cerebrospinal fluid drainage device Status: Acute Current Visit: Yes (3) Seizure Code(s): R56.9 - Unspecified convulsions Status: Acute Current Visit: Yes (4) Bed confinement status Code(s): Z74.01 - Bed confinement status Status: Acute Current Visit: Yes - Review/Management Plan: Breakthrough seizure patient is bedbound with apparent underlying dementia Subtherapeutic Dilantin level Patient is afebrile without leukocytosis Follow-up EEG improved Seizure medication levels reviewed Phenobarbital slightly low Dilantin therapeutic yesterday labs pending for today Recommendations Neuro stable Continue Depakote and Vimpat We will resume Dilantin and discontinue phenobarbital Swallowing appears to be main issue at present May require PEG tube? Follow-up speech therapy Follow exam
[2018-02-07] MEDS: Lacosamide Inj 100 MG in Sodium Chlor 0.9% Inj 100 ML IV.SIG SCH ×2 (11:47→21:53)
[2018-02-07] MEDS: Sod Chloride 0.9% Inj 1,000 ML IV.CONT SCH ×2 (11:52→18:16)
--- NOTE | 2018-02-07 11:52 | P.PNIM ---
Subjective Interval history: Potassium level is low today. Replacements provided. Patient tolerating feeds thus far. Nonverbal. Physical Exam Vital signs: Vital Signs 02/06/18 12:00 02/06/18 18:00 02/06/18 20:00 Temperature 98.4 F 98.4 F 98.4 F Pulse Rate 69 71 75 Respiratory Rate 18 18 18 Blood Pressure 143/68 H 162/74 H 165/67 H Pulse Oximetry 98 98 99 02/07/18 00:00 02/07/18 07:46 02/07/18 08:00 Temperature 98 F 98.5 F 98.5 F Pulse Rate 72 72 75 Respiratory Rate 18 18 12 Blood Pressure 170/76 H 107/60 144/69 H Pulse Oximetry 97 99 100 Intake & Output 02/06/18 02/07/18 02/07/18 18:59 06:59 18:59 Intake Total 1420 / 1420 310 / 310 Output Total 1350 / 1350 1000 / 1000 Balance 70 / 70 -690 / -690 Weight 50.7 kg Intake: IV 1420 / 1420 310 / 310 NS Inj 1,000 ML @ 100 mls/hr IV 1000 / 1000 .CONT .Q10H [facility] Rx#:[id number] Unasyn Inj 3 GM In NS Inj 100 100 / 100 200 / 200 ML @ 200 mls/hr IV.SIG Q6H [facility] Rx#:[id number] Vimpat Inj 100 MG In NS Inj 100 110 / 110 110 / 110 ML @ 110 mls/hr IV.SIG Q12HR [facility] Rx#:[id number] Depacon Inj 500 MG In NS Inj 210 / 210 100 ML @ 105 mls/hr IV.SIG Q8H [facility] Rx#:[id number] Output: Urine 1350 / 1350 1000 / 1000 Other: Date of Last Bowel Movement 02/03/18 Narrative: GENERAL: NAD, A&Ox0 HEAD: Normocephalic. NECK: Supple, trachea midline. No lymphadenopathy. EYES: No scleral icterus. No injection or drainage. CARDIOVASCULAR: Regular rate and rhythm without murmurs, gallops, or rubs. RESPIRATORY: Breath sounds equal bilaterally. No accessory muscle use. GASTROINTESTINAL: Abdomen soft, non-tender, nondistended. MUSCULOSKELETAL: No cyanosis, or edema. SKIN: Warm and dry. NEURO: Global neurological deficits. - Urinary Catheter Management Indwelling Urethral Catheter Cath placed during this visit: no Results - Labs CBC & Chem 7: 02/07/18 07:27 02/07/18 07:27 Laboratory Results - last 24 hr 02/06/18 02/06/18 02/06/18 11:44 14:59 15:25 WBC RBC Hgb Hct MCV MCH MCHC RDW Plt Count MPV Neut % (Auto) Lymph % (Auto) [place] % (Auto) Eos % (Auto) Baso % (Auto) Neut # (Auto) Lymph # (Auto) [place] # (Auto) Eos # (Auto) Baso # (Auto) WBC Differential Differential Comment Sodium Potassium Chloride Carbon Dioxide Anion Gap BUN Creatinine Estimated GFR POC Glucose 85 Random Glucose Calcium Total Bilirubin AST ALT Alkaline Phosphatase Total Protein Albumin Phenytoin 12.8 Phenobarbital 9.7 L 02/07/18 02/07/18 07:27 07:27 WBC 3.1 L RBC 4.21 Hgb 13.0 Hct 38.9 MCV 92.6 MCH 30.9 MCHC 33.4 RDW 14.1 Plt Count 208 D MPV 8.4 Neut % (Auto) 67.1 Lymph % (Auto) 19.5 [place] % (Auto) 12.5 H Eos % (Auto) 0.3 Baso % (Auto) 0.6 Neut # (Auto) 2.1 Lymph # (Auto) 0.6 L [place] # (Auto) 0.4 Eos # (Auto) 0.0 Baso # (Auto) 0.0 WBC Differential . Differential Comment Auto diff final Sodium 139 Potassium 2.9 L* Chloride 101 Carbon Dioxide 32.0 D Anion Gap 6 BUN 5 L Creatinine 0.27 L Estimated GFR Greater than 89 POC Glucose Random Glucose 93 Calcium 7.7 L Total Bilirubin 0.2 AST 14 L ALT 13 Alkaline Phosphatase 108 Total Protein 5.7 L D Albumin 2.4 L Phenytoin Phenobarbital Microbiology 02/02/18 00:35 Blood - Peripheral Aerobic Blood Culture - Final No growth in 5 days 02/02/18 00:35 Blood - Peripheral Anaerobic Blood Culture - Final No growth in 5 days 02/02/18 00:25 Blood - Peripheral Aerobic Blood Culture - Final No growth in 5 days 02/02/18 00:25 Blood - Peripheral Anaerobic Blood Culture - Final No growth in 5 days - Procedures None Assessment and Plan - Assessment (1) Seizure Code(s): R56.9 - Unspecified convulsions Status: Acute - Plan 77-year-old female with a history of brain cancer admitted secondary to seizures , failure to thrive, and aspiration pneumonia Tolerating tube feeds thus far. Potassium level low today. Replace potassium monitor. Hypokalemia Replace and monitor Seizure History of brain tumor Treatments are addressed Neurology following Continue to monitor for any recurrence of seizure Aspiration pneumonia Continue Unasyn and azithromycin Follow clinically Tube feeding should decrease her risk for aspiration Oxygen as needed Failure to thrive Poor p.o. intake Patient failed swallow evaluation PEG tube placed 02/05/2018 Tube feeds initiated 02/06/2018 Advance tube feeds as tolerated to a rate of 50 mm/h Hypothyroidism Continue supplementation via PEG COPD No exacerbation Continue baseline treatment DVT prophylaxis Lovenox
[2018-02-07] MEDS: Potassium Chlor 20 mEq Premix 20 MEQ/100 ML PIGGYBACK IV.SIG SCH ×2 (14:46→17:41)
[2018-02-07] MEDS: Fosphenytoin Inj 100 MGPE in Sodium Chlor 0.9% Inj 50 ML IV.SIG SCH (15:13)
[2018-02-07] MEDS: Azithromycin Inj 250 MG in Sodium Chlor 0.9% Inj 250 ML IV.SIG SCH (16:41)
[2018-02-07] MEDS ORDERED: Potassium Chlor 20 mEq Premix 20 MEQ/100 ML PIGGYBACK IV.SIG SCH (17:15)
[2018-02-08] MEDS: Valproate Inj 500 MG in Sodium Chlor 0.9% Inj 100 ML IV.SIG SCH ×3 (00:44→17:45)
[2018-02-08] MEDS: Ampicillin/Sulbactam Inj 3 GM in Sodium Chloride 0.9% Inj 100 ML IV.SIG SCH ×3 (00:45→12:14)
[2018-02-08] MEDS: Fosphenytoin Inj 100 MGPE in Sodium Chlor 0.9% Inj 50 ML IV.SIG SCH ×3 (00:47→16:05)
[2018-02-08 00:49] VITALS: RESP 18
[2018-02-08] MEDS: Sod Chloride 0.9% Inj 1,000 ML IV.CONT SCH ×2 (06:09→14:03)
[2018-02-08] MEDS: Enoxaparin Inj 30 MG/0.3 ML Syringe SQ SCH (08:21)
[2018-02-08] MEDS: Aspirin 325 MG Tablet NG/OG SCH (08:22)
[2018-02-08] MEDS: Sertraline 100 MG Tablet NG/OG SCH (08:22)
[2018-02-08] MEDS: Senna/Docusate Sodium 8.6/50 MG Tablet PO SCH (08:22)
[2018-02-08] MEDS: Divalproex 125 MG Sprinkles Capsule NG/OG SCH (08:24)
--- NOTE | 2018-02-08 08:46 | P.PNNEU ---
Subjective Subjective Comments: No acute events reported No headache No chest pain No dyspnea Active Medications: Active Medications Al Hydroxide/Mg Hydroxide (Milk Of Magnesia Liq) 30 ml PO Q12H PRN PRN Reason: Mild Constipation Albuterol (Duoneb Neb (Prn)) 1 ampul NEB Q4HR NEB PRN PRN Reason: SOB/WHEEZING Last Admin: 02/05/18 07:56 Dose: 1 ampul Aspirin (Aspirin) 81 mg NG/OG DAILY [facility] Last Admin: 02/08/18 08:22 Dose: 81 mg Atorvastatin Calcium (Lipitor) 10 mg NG/OG DAILY [facility] Last Admin: 02/08/18 08:22 Dose: 10 mg Bisacodyl (Dulcolax Supp) 10 mg RECTAL DAILY PRN PRN Reason: SEVERE CONSITIPATION Divalproex Sodium (Depakote Sprinkles) 500 mg NG/OG BID [facility] Last Admin: 02/08/18 08:24 Dose: 500 mg Enoxaparin Sodium (Lovenox Inj) 30 mg SQ DAILY [facility] Last Admin: 02/08/18 08:21 Dose: 30 mg Fosphenytoin Sodium 100 mgpe/ (Sodium Chloride) 52 mls @ 208 mls/hr IV.SIG Q8HR [facility] Last Admin: 02/08/18 07:55 Dose: 208 mls/hr Sodium Chloride (Ns Inj) 1,000 mls @ 100 mls/hr IV.CONT .Q10H [facility] Last Admin: 02/08/18 06:09 Dose: 100 mls/hr Azithromycin 250 mg/ Sodium (Chloride) 250 mls @ 250 mls/hr IV.SIG Q24H [facility] Last Infusion: 02/07/18 17:45 Dose: Infused Ampicillin Sodium/Sulbactam (Sodium 3 gm/ Sodium Chloride) 100 mls @ 200 mls/ hr IV.SIG Q6H [facility] Last Admin: 02/08/18 06:03 Dose: 200 mls/hr Valproate Sodium 500 mg/ (Sodium Chloride) 105 mls @ 105 mls/hr IV.SIG Q8H [facility] Last Admin: 02/08/18 08:22 Dose: 105 mls/hr Lacosamide 100 mg/ Sodium (Chloride) 110 mls @ 110 mls/hr IV.SIG Q12HR [facility] Last Admin: 02/07/18 21:53 Dose: 110 mls/hr Lactulose (Lactulose Liq) 30 ml PO DAILY PRN PRN Reason: SEVERE CONSITIPATION Lansoprazole (Prevacid Solutab) 30 mg NG/OG DAILY [facility] Last Admin: 02/08/18 08:22 Dose: 30 mg Levothyroxine Sodium (Synthroid) 25 mcg NG/OG DAILY@0600 [facility] Last Admin: 02/08/18 06:04 Dose: 25 mcg Lorazepam (Ativan Inj) 1 mg IV.PUSH Q5M PRN PRN Reason: SEIZURE Last Admin: 02/03/18 13:55 Dose: 1 mg Metoclopramide HCl (Reglan Inj) 5 mg IV.PUSH Q8H PRN; Protocol PRN Reason: nausea/vomiting Phenytoin Sodium (Dilantin) 130 mg PO TID [facility] Last Admin: 02/02/18 13:43 Dose: Not Given Senna/Docusate Sodium (Deena-Colace) 1 tab PO BID [facility] Last Admin: 02/08/18 08:22 Dose: 1 tab Sennosides (Senokot) 17.2 mg PO Q12H PRN PRN Reason: Moderate Constipation Sertraline HCl (Zoloft) 100 mg NG/OG DAILY [facility] Last Admin: 02/08/18 08:22 Dose: 100 mg Tizanidine HCl (Zanaflex) 2 mg PO TID PRN PRN Reason: SPASM Allergies/Adverse Reactions: Allergies Allergy/AdvReac Type Severity Reaction Status Date / Time milk Allergy Unknown LACTOSE Verified 02/01/18 23:48 INTOLERANT chocolate flavor AdvReac Unknown "MAKES ME Verified 02/01/18 23:48 HYPER" MRI PRECAUTION AdvReac Severe SHUNT/ Uncoded 01/24/18 09:45 METAL CLIP IN BRAIN PER DR CLINE KD 06/15/08 *MDRO Multi-Drug Resistant AdvReac Unknown UNKNOWN Uncoded 01/24/18 09:45 Organism Review of Systems All other systems reviewed negative except as stated in HPI Physical Exam Vital signs: Vital Signs 02/07/18 12:00 02/07/18 16:00 02/07/18 18:19 Temperature 98.0 F 99.6 F Pulse Rate 72 72 Respiratory Rate 16 12 Blood Pressure 126/60 121/58 L Pulse Oximetry 100 100 100 02/07/18 20:00 02/08/18 00:00 02/08/18 04:00 Temperature 98.6 F 97.6 F Pulse Rate 73 69 Respiratory Rate 16 18 18 Blood Pressure 148/69 H 144/68 H 143/70 H Pulse Oximetry 98 95 96 Intake & Output 02/07/18 02/08/18 02/08/18 18:59 06:59 18:59 Intake Total 2317 / 2317 757 / 757 Output Total 1600 / 1600 1600 / 1600 Balance 717 / 717 -843 / -843 Weight 50.7 kg 54.6 kg Intake: IV 2317 / 2317 757 / 757 NS Inj 1,000 ML @ 100 mls/hr IV 1500 / 1500 500 / 500 .CONT .Q10H [facility] Rx#:[id number] Unasyn Inj 3 GM In NS Inj 100 200 / 200 100 / 100 ML @ 200 mls/hr IV.SIG Q6H [facility] Rx#:[id number] Azithromycin Inj 250 MG In NS 250 / 250 Inj 250 ML @ 250 mls/hr IV.SIG Q24H [facility] Rx#:[id number] Cerebyx Inj 100 MGPE In NS Inj 52 / 52 52 / 52 50 ML @ 208 mls/hr IV.SIG Q8HR [facility] Rx#:[id number] Vimpat Inj 100 MG In NS Inj 100 110 / 110 ML @ 110 mls/hr IV.SIG Q12HR [facility] Rx#:[id number] KCl 20 mEq Premix Inj 20 meq In 100 / 100 100 ml @ 50 mls/hr IV.SIG Q2H [facility] Rx#:[id number] Depacon Inj 500 MG In NS Inj 105 / 105 105 / 105 100 ML @ 105 mls/hr IV.SIG Q8H [facility] Rx#:[id number] Output: Urine 1600 / 1600 Urine Amount (Catheter) 1600 / 1600 Indwelling Urethral Catheter 1600 / 1600 Narrative: GENERAL: NAD, A&Ox1 HEAD: Normocephalic. NECK: Supple, trachea midline. No lymphadenopathy. EYES: No scleral icterus. No injection or drainage. CARDIOVASCULAR: Regular rate and rhythm RESPIRATORY: Breath sounds equal bilaterally. No accessory muscle use. GASTROINTESTINAL: Abdomen soft, non-tender, nondistended. MUSCULOSKELETAL: No cyanosis, or edema. SKIN: Warm and dry. NEURO: NEURO: Awake alert oriented 1. Follows. Severely dysphonic speech disfluency. Left head tilt. 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 with lower extremity contraction boots in place - Constitutional no acute distress - Routine HEENT Exam Head: Present: normocephalic, atraumatic Eye: Present: EOMI - Urinary Catheter Management Indwelling Urethral Catheter Cath placed during this visit: no Objective Laboratory Results - last 24 hr 02/07/18 02/07/18 02/07/18 07:27 07:27 15:28 Sodium 139 Potassium 2.9 L* Chloride 101 Carbon Dioxide 32.0 D Anion Gap 6 BUN 5 L Creatinine 0.27 L Estimated GFR Greater than 89 Random Glucose 93 Calcium 7.7 L Total Bilirubin 0.2 AST 14 L ALT 13 Alkaline Phosphatase 108 Total Protein 5.7 L D Albumin 2.4 L Phenytoin 7.2 L Phenobarbital 11.9 L Microbiology 02/02/18 00:35 Aerobic Blood Culture - Final Blood - Peripheral No growth in 5 days Anaerobic Blood Culture - Final No growth in 5 days 02/02/18 00:25 Aerobic Blood Culture - Final Blood - Peripheral No growth in 5 days Anaerobic Blood Culture - Final No growth in 5 days Review/Management - Diagnosis (1) Chronic ischemic left MCA stroke Code(s): I69.30 - Unspecified sequelae of cerebral infarction Status: Acute Current Visit: Yes (2) RECORDS ASSISTANT (ventriculoperitoneal) shunt status Code(s): Z98.2 - Presence of cerebrospinal fluid drainage device Status: Acute Current Visit: Yes (3) Seizure Code(s): R56.9 - Unspecified convulsions Status: Acute Current Visit: Yes (4) Bed confinement status Code(s): Z74.01 - Bed confinement status Status: Acute Current Visit: Yes - Review/Management Plan: Breakthrough seizure patient is bedbound with apparent underlying dementia Subtherapeutic Dilantin level Patient is afebrile without leukocytosis Follow-up EEG improved Seizure medication levels reviewed Phenobarbital slightly low Dilantin therapeutic yesterday labs pending for today Recommendations Neuro stable Continue Depakote, vimpat and dilantin peg placed check levels in 3-4 days f/u at our office in 1 week back to snf
[2018-02-08 08:50] LABS: Baso % (Auto) 0.4 % (0.0-2.0); Eos % (Auto) 0.5 % (0.0-4.0); Hematocrit 41.9 % (35.0-46.0); Lymph % (Auto) 27.3 % (9.0-44.0); Mean Corpuscular HGB Conc 33.5 % (32.0-36.0); Mean Corpuscular Hemoglobin 30.8 pg (27.0-34.0); Mean Platelet Volume 8.7 fL (7.0-11.0); Mono # (Auto) 0.5 th/mm3 (0.0-0.9); Mono % (Auto) 14.6 % (0.0-8.0); Neut # (Auto) 2.1 th/mm3 (1.8-7.7); Neut % (Auto) 57.2 % (16.0-70.0); Platelet Count 218 th/mm3 (150-450); Red Blood Count 4.56 mil/mm3 (4.00-5.30); Red Cell Distribution Width 14.4 % (11.6-17.2); White Blood Count 3.6 th/mm3 (4.0-11.0)
[2018-02-08 09:07] LABS: Alanine Aminotransferase 15 U/L (10-53); Albumin 2.3 g/dL (3.4-5.0); Alkaline Phosphatase 112 U/L (45-117); Anion Gap 8 meq/L (5-15); Aspartate Aminotransferase 21 U/L (15-37); Blood Urea Nitrogen 8 mg/dL (7-18); Calcium 8.1 mg/dL (8.5-10.1); Carbon Dioxide 30.5 meq/L (21.0-32.0); Chloride 103 meq/L (98-107); Glomerular Filtration Rate Greater Than 89 mL/min (>89); Glucose,Random 77 mg/dL (74-106); Potassium 3.8 meq/L (3.5-5.1); Sodium 141 meq/L (136-145)
--- NOTE | 2018-02-08 10:08 | P.PNIM ---
Subjective Interval history: No further seizure activity. Patient is tolerating feeds thus far. No evidence of pain today. Physical Exam Vital signs: Vital Signs 02/07/18 12:00 02/07/18 16:00 02/07/18 18:19 Temperature 98.0 F 99.6 F Pulse Rate 72 72 Respiratory Rate 16 12 Blood Pressure 126/60 121/58 L Pulse Oximetry 100 100 100 02/07/18 20:00 02/08/18 00:00 02/08/18 04:00 Temperature 98.6 F 97.6 F Pulse Rate 73 69 Respiratory Rate 16 18 18 Blood Pressure 148/69 H 144/68 H 143/70 H Pulse Oximetry 98 95 96 Intake & Output 02/07/18 02/08/18 02/08/18 18:59 06:59 18:59 Intake Total 2317 / 2317 757 / 757 Output Total 1600 / 1600 1600 / 1600 Balance 717 / 717 -843 / -843 Weight 50.7 kg 54.6 kg Intake: IV 2317 / 2317 757 / 757 NS Inj 1,000 ML @ 100 mls/hr IV 1500 / 1500 500 / 500 .CONT .Q10H [facility] Rx#:[id number] Unasyn Inj 3 GM In NS Inj 100 200 / 200 100 / 100 ML @ 200 mls/hr IV.SIG Q6H [facility] Rx#:[id number] Azithromycin Inj 250 MG In NS 250 / 250 Inj 250 ML @ 250 mls/hr IV.SIG Q24H [facility] Rx#:[id number] Cerebyx Inj 100 MGPE In NS Inj 52 / 52 52 / 52 50 ML @ 208 mls/hr IV.SIG Q8HR [facility] Rx#:[id number] Vimpat Inj 100 MG In NS Inj 100 110 / 110 ML @ 110 mls/hr IV.SIG Q12HR [facility] Rx#:[id number] KCl 20 mEq Premix Inj 20 meq In 100 / 100 100 ml @ 50 mls/hr IV.SIG Q2H [facility] Rx#:[id number] Depacon Inj 500 MG In NS Inj 105 / 105 105 / 105 100 ML @ 105 mls/hr IV.SIG Q8H [facility] Rx#:[id number] Output: Urine 1600 / 1600 Urine Amount (Catheter) 1600 / 1600 Indwelling Urethral Catheter 1600 / 1600 Narrative: GENERAL: NAD, A&Ox1 HEAD: Normocephalic. NECK: Supple, trachea midline. No lymphadenopathy. EYES: No scleral icterus. No injection or drainage. CARDIOVASCULAR: Regular rate and rhythm without murmurs, gallops, or rubs. RESPIRATORY: Breath sounds equal bilaterally. No accessory muscle use. GASTROINTESTINAL: Abdomen soft, non-tender, nondistended. MUSCULOSKELETAL: No cyanosis, or edema. SKIN: Warm and dry. NEURO: No focal neurological deficits. - Urinary Catheter Management Indwelling Urethral Catheter Cath placed during this visit: no Results - Labs CBC & Chem 7: 02/08/18 07:10 02/08/18 07:10 Laboratory Results - last 24 hr 02/07/18 02/07/18 02/08/18 07:27 15:28 07:10 WBC 3.6 L RBC 4.56 Hgb 14.0 Hct 41.9 MCV 92.0 MCH 30.8 MCHC 33.5 RDW 14.4 Plt Count 218 MPV 8.7 Neut % (Auto) 57.2 Lymph % (Auto) 27.3 [place] % (Auto) 14.6 H Eos % (Auto) 0.5 Baso % (Auto) 0.4 Neut # (Auto) 2.1 Lymph # (Auto) 1.0 [place] # (Auto) 0.5 Eos # (Auto) 0.0 Baso # (Auto) 0.0 WBC Differential . Differential Comment Auto diff final Sodium Potassium Chloride Carbon Dioxide Anion Gap BUN Creatinine Estimated GFR Random Glucose Calcium Total Bilirubin AST ALT Alkaline Phosphatase Total Protein Albumin Phenytoin 7.2 L Phenobarbital 11.9 L 02/08/18 07:10 WBC RBC Hgb Hct MCV MCH MCHC RDW Plt Count MPV Neut % (Auto) Lymph % (Auto) [place] % (Auto) Eos % (Auto) Baso % (Auto) Neut # (Auto) Lymph # (Auto) [place] # (Auto) Eos # (Auto) Baso # (Auto) WBC Differential Differential Comment Sodium 141 Potassium 3.8 D Chloride 103 Carbon Dioxide 30.5 Anion Gap 8 BUN 8 Creatinine 0.22 L Estimated GFR Greater than 89 Random Glucose 77 Calcium 8.1 L Total Bilirubin 0.1 L AST 21 ALT 15 Alkaline Phosphatase 112 Total Protein 6.0 L Albumin 2.3 L Phenytoin Phenobarbital Microbiology 02/02/18 00:35 Blood - Peripheral Aerobic Blood Culture - Final No growth in 5 days 02/02/18 00:35 Blood - Peripheral Anaerobic Blood Culture - Final No growth in 5 days 02/02/18 00:25 Blood - Peripheral Aerobic Blood Culture - Final No growth in 5 days 02/02/18 00:25 Blood - Peripheral Anaerobic Blood Culture - Final No growth in 5 days - Procedures None Assessment and Plan - Assessment (1) Seizure Code(s): R56.9 - Unspecified convulsions Status: Acute - Plan 77-year-old female with a history of brain cancer admitted secondary to seizures , failure to thrive, and aspiration pneumonia Tolerating tube feeds thus far. Potassium level has stabilized. Advancing tube feeds as tolerated. Plan to discharge to long term facility once full rate is achieved and patient tolerating Hypokalemia Replace and monitor Seizure History of brain tumor Treatments are addressed Neurology following Continue to monitor for any recurrence of seizure Aspiration pneumonia Continue Unasyn and azithromycin Follow clinically Tube feeding should decrease her risk for aspiration Oxygen as needed Failure to thrive Poor p.o. intake Patient failed swallow evaluation PEG tube placed 02/05/2018 Tube feeds initiated 02/06/2018 Advance tube feeds as tolerated to a rate of 50 mm/h Hypothyroidism Continue supplementation via PEG COPD No exacerbation Continue baseline treatment DVT prophylaxis Lovenox
[2018-02-08] MEDS: Lacosamide Inj 100 MG in Sodium Chlor 0.9% Inj 100 ML IV.SIG SCH (10:48)
[2018-02-08 16:02] VITALS: BP 148/71; PULSE 74; TEMP 97.7; O2SAT 100
[2018-02-08] MEDS: Azithromycin Inj 250 MG in Sodium Chlor 0.9% Inj 250 ML IV.SIG SCH (17:46)
--- NOTE | 2018-03-01 17:43 | P.DS ---
Date of admission: 02/04/18 11:33 Primary care physician: No Primary Care Physician Brief History from admission: 77-year-old female with a history of seizure disorder, brain tumor resection in 2002 who presents from alf facility secondary to seizure. She is currently in a postictal state is awake, appears to make good eye contact can shake her head to deny pain, however does not provide any history. History is obtained from ER documentation, chart review and discussion with nursing. DS: Diagnosis - Discharge Diagnosis (1) Seizure Status: Acute DS: Medications - Discharge Medications Prescriptions: lacosamide 10 ml FEEDING TUBE BID #600 ml DS: Summary Hospital Course: Mrs. Clayton is a 78 year old female. She has brain cancer baseline. She had failure to thrive. She was admitted secondary to seizure. Seizures likely related to brain cancer. She was stabilized. Medications adjusted. She is to return to her alf facility at time of discharge. Long-term prognosis is poor. - Time Spent with Patient Total time spent providing and/or coordinating discharge services: Less than 30 minutes - Quality: VTE Deep Vein Thrombosis/Pulmonary Embolism Present on Admission: No Results Procedures completed during hospitalization: None - Impressions ITS Impressions Chest X-Ray 02/02/18 00:18 CONCLUSION: 1. Right lung parenchymal opacity. May represent scarring/chronic lung disease versus atelectasis or mild consolidation. 2. Moderate severity cardiac silhouette enlargement. Head CT 02/02/18 04:47 CONCLUSION: 1. Chronic postsurgical findings and right-sided parietal ventricular shunt catheter. 2. Chronic periventricular white matter hypodensity and left frontal lobe encephalomalacia. 3. No acute intracranial findings. . Chest CT 02/02/18 04:51 CONCLUSION: 1. Bilateral lower lobe atelectasis and bronchiectasis unchanged. Mild patchy atelectasis in the upper to mid lung zones. 2. Triangular nodular density in the right lower lobe unchanged from October 2017 CT abdomen and pelvis. Recommend six-month follow-up noncontrast chest CT. 3. Small right pleural effusion unchanged. 4. Coronary artery calcification. Abdomen X-Ray 02/03/18 00:00 CONCLUSION: Dobbhoff catheter tip in the left hypogastric region, probably distal stomach. Gastrostomy Tube Placement 02/05/18 00:00 CONCLUSION: 1. Uncomplicated gastrostomy tube placement as above. Discharge Plan - Discharge Disposition Patient Disposition: 03 Discharge to SNF - Discharge Condition Condition: Fair - Discharge Order Discharge Orders: Discharge Order (Routine); Ordered 02/08/18 Ordered By: Isaac Cortez Neurology Clear for Discharge (Routine); Ordered 02/08/18 Ordered By: Vikash Ortega - Discharge Details Anticipated Discharge Date: 02/08/18 - Physicians Team Primary Care Provider: Primary Care Brendai,No Attending Provider: Joe Rivera Other Providers: Vikash Ortega MD ; Quinton Shaw MD
== END 2018-02-08 19:18 ==
LOC: NEPE 23:39 → NEDA 23:39 → NEPHCDU 02-02 08:26 → N05 02-05 13:29
PROVIDERS: ADMIT Hospitalist; ATTEND Hospitalist